=== PATIENT | male | born 1950 | race Two or more races ===

== ENCOUNTER 2019-05-21 21:25 | Inpatient (IN) | payer MEDICARE, OTHER ==
[~2019-05-21] VITALS: Ht 167.6 cm; Wt 71.2 kg
[2019-05-21 11:55] VITALS: BP 163/90
[2019-05-21] MEDS ORDERED: FENTANYL PF 100MCG/2ML AMPUL ONE (21:53)
[2019-05-21] MEDS ORDERED: FENTANYL PF 100MCG/2ML AMPUL IV ONE (22:00)
[2019-05-21] MEDS ORDERED: IV NS 0.9% 1,000 ML IV PRN (22:42)
[2019-05-21 22:51] LABS: BASOPHILS % (AUTO) 0.4 % (0.0-2.0); EOSINOPHILS % (AUTO) 1.3 % (0.0-6.0); HEMATOCRIT 44 % (39-51); HEMOGLOBIN 14.5 g/dL (13.5-17.5); LYMPHOCYTES % (AUTO) 28.2 % (20.0-44.0); MEAN CORPUSCULAR HGB CONC 33 g/dl (31.0-36.0); MEAN CORPUSCULAR VOLUME 90 fL (80-96); MONOCYTES # (AUTO) 0.4 /CMM (0.1-1.30); MONOCYTES % (AUTO) 5.3 % (2.0-12.0); NEUTROPHILS # (AUTO) 4.6 /CMM (1.8-8.9); NEUTROPHILS % (AUTO) 64.8 % (43.0-81.0); PLATELET COUNT (AUTO) 361 /CMM (150-450); RED BLOOD CELL COUNT(AUTO) 4.86 MIL/uL (4.5-6.0)
[2019-05-21] MEDS ORDERED: ACETAMINOPHEN 325 MG TABLET PO PRN (23:00)
[2019-05-21] MEDS ORDERED: ENOXAPARIN SODIUM 40 MG/0.4 ML DISP.SYRIN SQ SCH (23:00)
[2019-05-21] MEDS ORDERED: TEMAZEPAM 15 MG CAPSULE PO PRN (23:00)
[2019-05-21] MEDS ORDERED: MAG HYDROX/AL HYDROX/SIMETH 30 ML UDC PO PRN (23:00)
[2019-05-21] MEDS ORDERED: MAGNESIUM HYDROXIDE 30 ML UDC PO PRN (23:00)
[2019-05-21] MEDS ORDERED: ONDANSETRON HCL/PF 4 MG/2 ML VIAL IVP PRN (23:00)
[2019-05-21 23:02] LABS: CALCIUM, SERUM 9.4 mg/dL (8.5-10.1); CREATININE 1.1 mg/dL (0.6-1.3); POTASSIUM 3.9 mmol/L (3.5-5.1)
[2019-05-21 23:50] VITALS: BP 163/90
[2019-05-21] MEDS: MORPHINE SULFATE INJ 4 MG/ML DISP.SYRIN IV PRN (23:58)
[2019-05-22] MEDS: MORPHINE SULFATE INJ 4 MG/ML DISP.SYRIN IV PRN (04:30)
[2019-05-22] MEDS ORDERED: IV NS 0.9% 1,000 ML IV PRN (06:58)
[2019-05-22] MEDS ORDERED: MORPHINE SULFATE INJ 2 MG/ML DISP.SYRIN IV ONE (07:00)
[2019-05-22 07:20] LABS: BASOPHILS % (AUTO) 0.2 % (0.0-2.0); EOSINOPHILS % (AUTO) 0.3 % (0.0-6.0); HEMATOCRIT 40 % (39-51); HEMOGLOBIN 13.2 g/dL (13.5-17.5); LYMPHOCYTES # (AUTO) 2.5 /CMM (0.8-4.8); LYMPHOCYTES % (AUTO) 23.5 % (20.0-44.0); MEAN CORPUSCULAR HGB CONC 33 g/dl (31.0-36.0); MEAN CORPUSCULAR VOLUME 89 fL (80-96); MONOCYTES # (AUTO) 0.8 /CMM (0.1-1.30); MONOCYTES % (AUTO) 7.3 % (2.0-12.0); NEUTROPHILS # (AUTO) 7.3 /CMM (1.8-8.9); NEUTROPHILS % (AUTO) 68.7 % (43.0-81.0); PLATELET COUNT (AUTO) 298 /CMM (150-450); RED BLOOD CELL COUNT(AUTO) 4.43 MIL/uL (4.5-6.0); WHITE BLOOD COUNT (AUTO) 10.6 K/uL (4.3-11.0)
[2019-05-22 07:34] LABS: CALCIUM, SERUM 8.6 mg/dL (8.5-10.1); MAGNESIUM 1.8 mg/dL (1.8-2.4); PHOSPHORUS 2.3 mg/dL (2.5-4.9); POTASSIUM 3.3 mmol/L (3.5-5.1)
[2019-05-22 08:00] VITALS: BP 148/85
[2019-05-22] MEDS ORDERED: BUPIVACAINE 0.5 % PF 150 MG/30 ML VIAL ONE (08:23)
[2019-05-22] MEDS ORDERED: BACITRACIN 50000 UNITS/VIAL ONE (08:23)
[2019-05-22] MEDS ORDERED: AMLO10TA4 PO (08:24)
[2019-05-22] MEDS ORDERED: ATOR20TA PO (08:24)
[2019-05-22] MEDS ORDERED: HIV (08:24)
[2019-05-22] MEDS ORDERED: FENTANYL PF 100MCG/2ML AMPUL ONE (08:48)
[2019-05-22] MEDS ORDERED: PANTOPRAZOLE 40 MG VIAL IV SCH (09:00)
[2019-05-22] MEDS ORDERED: HYDROMORPHONE 1 MG/1 ML DISP.SYRIN ONE (10:42)
[2019-05-22 12:02] LABS: HEMOGLOBIN 13.2 g/dL (13.5-17.5)
[2019-05-22] MEDS: IV LR 1000 ML 1,000 ML IV PRN (14:28)
[2019-05-22 16:00] VITALS: BP 138/83
[2019-05-22] MEDS: ANCEF 1 GM/50 ML D5W IV SCH ×2 (16:24)
[2019-05-22 20:00] VITALS: BP 136/87
[2019-05-22] MEDS: HYDROCODONE/APAP 5/325MG 1 EACH TABLET PO PRN (20:57)
[2019-05-23] MEDS: ANCEF 1 GM/50 ML D5W IV SCH ×2 (00:03)
[2019-05-23 03:11] VITALS: BP 153/80
[2019-05-23] MEDS: HYDROCODONE/APAP 5/325MG 1 EACH TABLET PO PRN ×3 (03:32→21:12)
[2019-05-23] MEDS: IV LR 1000 ML 1,000 ML IV PRN (07:04)
[2019-05-23 07:39] LABS: BASOPHILS % (AUTO) 0.1 % (0.0-2.0); EOSINOPHILS % (AUTO) 0.1 % (0.0-6.0); HEMATOCRIT 34 % (39-51); HEMOGLOBIN 11.3 g/dL (13.5-17.5); LYMPHOCYTES # (AUTO) 2.5 /CMM (0.8-4.8); LYMPHOCYTES % (AUTO) 23.5 % (20.0-44.0); MEAN CORPUSCULAR HGB CONC 33 g/dl (31.0-36.0); MEAN CORPUSCULAR VOLUME 89 fL (80-96); MONOCYTES % (AUTO) 9.3 % (2.0-12.0); NEUTROPHILS # (AUTO) 7.1 /CMM (1.8-8.9); PLATELET COUNT (AUTO) 284 /CMM (150-450); RED BLOOD CELL COUNT(AUTO) 3.84 MIL/uL (4.5-6.0); WHITE BLOOD COUNT (AUTO) 10.7 K/uL (4.3-11.0)
[2019-05-23 07:56] LABS: CALCIUM, SERUM 8.2 mg/dL (8.5-10.1); CREATININE 0.9 mg/dL (0.6-1.3); MAGNESIUM 1.8 mg/dL (1.8-2.4); PHOSPHORUS 2.7 mg/dL (2.5-4.9); POTASSIUM 3.6 mmol/L (3.5-5.1)
[2019-05-23 08:00] VITALS: BP 134/74
[2019-05-23] MEDS: PANTOPRAZOLE 40 MG TABLET.DR PO SCH (08:57)
[2019-05-23] MEDS: ENOXAPARIN SODIUM 40 MG/0.4 ML DISP.SYRIN SQ SCH (08:59)
[2019-05-23 16:00] VITALS: BP 134/83
[2019-05-23 20:00] VITALS: BP 134/74
[2019-05-23] MEDS ORDERED: ATORVASTATIN 10 MG TABLET PO SCH (22:00)
[2019-05-24] MEDS: HYDROCODONE/APAP 5/325MG 1 EACH TABLET PO PRN (05:05)
[2019-05-24 07:29] LABS: BASOPHILS % (AUTO) 0.3 % (0.0-2.0); EOSINOPHILS % (AUTO) 1.2 % (0.0-6.0); HEMATOCRIT 32 % (39-51); HEMOGLOBIN 10.8 g/dL (13.5-17.5); LYMPHOCYTES % (AUTO) 30.7 % (20.0-44.0); MEAN CORPUSCULAR HGB CONC 33 g/dl (31.0-36.0); MEAN CORPUSCULAR VOLUME 89 fL (80-96); MONOCYTES % (AUTO) 10.1 % (2.0-12.0); NEUTROPHILS # (AUTO) 5.6 /CMM (1.8-8.9); NEUTROPHILS % (AUTO) 57.7 % (43.0-81.0); PLATELET COUNT (AUTO) 254 /CMM (150-450); RED BLOOD CELL COUNT(AUTO) 3.64 MIL/uL (4.5-6.0); WHITE BLOOD COUNT (AUTO) 9.7 K/uL (4.3-11.0)
[2019-05-24 07:45] LABS: CALCIUM, SERUM 8.2 mg/dL (8.5-10.1); CREATININE 0.9 mg/dL (0.6-1.3); MAGNESIUM 1.9 mg/dL (1.8-2.4); PHOSPHORUS 2.1 mg/dL (2.5-4.9); POTASSIUM 3.1 mmol/L (3.5-5.1)
[2019-05-24 08:00] VITALS: BP_SYST 117; BP_SYST 145; BP_DIAS 66; BP_DIAS 99
[2019-05-24] MEDS: PANTOPRAZOLE 40 MG TABLET.DR PO SCH (08:38)
[2019-05-24] MEDS: ENOXAPARIN SODIUM 40 MG/0.4 ML DISP.SYRIN SQ SCH (08:39)
[2019-05-24] MEDS ORDERED: AMLODIPINE BESYLATE 10 MG TABLET PO SCH (09:00)
[2019-05-24] MEDS: POTASSIUM CHLORIDE 20 MEQ TAB.PRT.SR PO SCH ×2 (10:42→11:20)
[2019-05-24] MEDS ORDERED: K PHOS NEUTRAL 250 MG TABLET PO ONE (11:00)
[2019-05-24] MEDS: HYDROCODONE/APAP 10/325MG 1 EA TABLET PO PRN ×2 (11:20→17:26)
[2019-05-24 16:00] VITALS: BP 135/75
== END 2019-05-24 18:48 | DRG 482 ==
LOC: ER 21:29 → MED 22:48 → MEDSG2 05-23 02:55
PROVIDERS: ADMIT Nurse Practitioner Acute Care; ATTEND Nurse Practitioner Acute Care
PROC: 0QS706Z Reposition Left Upper Femur with Intramedullary Internal Fixation Device, Open Approach (ICD-10-PCS; principal; 2019-05-22)
DX: S72.142A Displaced intertrochanteric fracture of left femur, initial encounter for closed fracture (principal); S72.122A Displaced fracture of lesser trochanter of left femur, initial encounter for closed fracture; W18.30XA Fall on same level, unspecified, initial encounter; Y92.009 Unspecified place in unspecified non-institutional (private) residence as the place of occurrence of the external cause; I10 Essential (primary) hypertension; E86.0 Dehydration; E83.39 Other disorders of phosphorus metabolism; E87.6 Hypokalemia; R79.89 Other specified abnormal findings of blood chemistry
CPT/HCPCS: 36415; 71045-TC; 73502; 73552; 80048-TC; 80061-TC; 83735-TC; 84100-TC; 85025-TC; 85027-TC; 85730-TC; 87081-TC; 93307-TC; 97112-TC; 97530-TC; G0378; J0690; J1170; J1650; J2270; J2405; J3010; J3490; J7030; J7060; J7120

== ENCOUNTER 2023-04-04 18:20 | Inpatient (IN) | payer BC, OTHER ==
[~2023-04-04] VITALS: Ht 170.2 cm; Wt 62.6 kg
[~2023-04-04 18:20] MED LIST: AMLO10TA4 GT; ATOR20TA PO; HIV
[2023-04-04] MEDS ORDERED: IV NS 0.9% 1,000 ML BAG IV ONE (19:00)
[2023-04-04] MEDS ORDERED: DOCU100T2 GT (19:09)
[2023-04-04] MEDS ORDERED: CLON0.1T GT (19:09)
[2023-04-04] MEDS ORDERED: ATOR40TA GT (19:09)
[2023-04-04] MEDS ORDERED: IPRA3AMP22 IH (19:09)
[2023-04-04] MEDS ORDERED: CRAN425C6 GT (19:09)
[2023-04-04] MEDS ORDERED: PANT40TA2 PO (19:09)
[2023-04-04] MEDS ORDERED: ALLA266C2 TP (19:09)
[2023-04-04] MEDS ORDERED: TAMS-12 GT (19:09)
[2023-04-04] MEDS ORDERED: NA P133E RC (19:09)
[2023-04-04] MEDS ORDERED: ASPI-1169 GT (19:09)
[2023-04-04] MEDS ORDERED: AMIN30LI2 GT (19:09)
[2023-04-04] MEDS ORDERED: DOLU50TA GT (19:09)
[2023-04-04] MEDS ORDERED: ENOX40DI SQ (19:09)
[2023-04-04] MEDS ORDERED: FINA5TAB3 GT (19:09)
[2023-04-04] MEDS ORDERED: DARU1TAB GT (19:09)
[2023-04-04] MEDS ORDERED: BISA10SU11 RC (19:09)
[2023-04-04] MEDS ORDERED: LOSA50TA39 GT (19:09)
[2023-04-04] MEDS ORDERED: ACET-868 GT (19:09)
[2023-04-04] MEDS ORDERED: MAGN400O6 GT (19:09)
[2023-04-04 19:26] LABS: ABG BASE EXCESS 2.4 mmol/L; ABG OXYGEN SATURATION 98.5 % (92.0-98.5); ABG PCO2 40.8 mmHg (35.0-45.0); ABG PH 7.436 (7.350-7.450); ABG PO2 146.9 mmHg (75.0-100.0); ABG TOTAL HEMOGLOBIN 10.8 G/dL (13.5-18.0); COHb 0.3 % (0.5-1.5); MetHb 0.4 % (0.0-1.5); O2Hb 97.8 % (94.0-97.0); SITE, ABG Right Radial; VENT MODE, BG NRB 15L 100%
[2023-04-04] MEDS ORDERED: LEVOFLOXACIN 750 MG /D5W 150ML PIGGYBACK IV ONE (19:30)
[2023-04-04 19:33] LABS: BASOPHILS % (AUTO) 0.2 % (0.0-2.0); EOSINOPHILS # (AUTO) 0.1 K/uL (0.0-0.7); EOSINOPHILS % (AUTO) 0.8 % (0.0-6.0); HEMATOCRIT 33 % (39-51); HEMOGLOBIN 10.2 g/dL (13.5-17.5); LYMPHOCYTES # (AUTO) 3.4 K/uL (0.8-4.8); LYMPHOCYTES % (AUTO) 25.3 % (20.0-44.0); MEAN CORPUSCULAR HEMOGLOBIN 28 PG (26.0-33.0); MEAN CORPUSCULAR HGB CONC 31 g/dl (31.0-36.0); MEAN CORPUSCULAR VOLUME 90 fL (80-96); MONOCYTES # (AUTO) 0.8 K/uL (0.1-1.30); MONOCYTES % (AUTO) 6.1 % (2.0-12.0); NEUTROPHILS # (AUTO) 9.1 K/uL (1.8-8.9); NEUTROPHILS % (AUTO) 67.6 % (43.0-81.0); PLATELET COUNT (AUTO) 305 K/uL (150-450); RED CELL DISTRIBUTION WIDTH 18.4 % (11.5-15.0); WHITE BLOOD COUNT (AUTO) 13.5 K/uL (4.3-11.0)
[2023-04-04 19:41] LABS: CALCIUM, SERUM 9.9 mg/dL (8.5-10.1); CARBON DIOXIDE 25 mmol/L (21-32); CHLORIDE 112 mmol/L (98-107); CREATININE 1.8 mg/dL (0.6-1.3); GLUCOSE 212 mg/dL (74-106); POTASSIUM 3.6 mmol/L (3.5-5.1); SODIUM SERUM 145 mmol/L (136-145); UREA NITROGEN, BLOOD 38 mg/dL (7-18)
[2023-04-04 19:48] LABS: LACTIC ACID 2.3 mmol/L (0.4-2.0)
[2023-04-04 19:54] LABS: ALANINE AMINOTRANSFERASE 16 U/L (12-78); ALBUMIN 1.9 g/dL (3.4-5.0); ALCOHOL, BLOOD < 3 mg/dL (0-10); ALKALINE PHOSPHATASE 92 U/L (46-116); ASPARTATE AMINOTRANSFERASE 23 U/L (15-37); BILIRUBIN,DIRECT 0.2 mg/dL (0.0-0.2); BILIRUBIN,TOTAL 0.6 mg/dL (0.2-1.0); TOTAL PROTEIN, SERUM 7.6 g/dL (6.4-8.2)
[2023-04-04 19:56] LABS: SERUM AMMONIA 23 umol/L (11-32)
[2023-04-04 19:57] LABS: THYROID STIMULATING HORMONE 1.313 uIU/mL (0.358-3.74)
[2023-04-04 20:17] LABS: INR 1.05 (0.91-1.10); PARTIAL THROMBOPLASTIN TIME 23.4 SEC (24.3-34.3); PROTHROMBIN TIME 11.1 SECS (9.2-11.1)
[2023-04-04 21:54] LABS: APPEARANCE,URINE SLIGHTLY CLOUDY (CLEAR); BILIRUBIN,URINE NEGATIVE (NEGATIVE); BLOOD, URINE 3+ Ery/uL (NEGATIVE); COLOR,URINE YELLOW (YELLOW); KETONES,URINE NEGATIVE (NEGATIVE); LEUKOCYTE ESTERASE ,URINE NEGATIVE (NEGATIVE); NITRITE, URINE NEGATIVE (NEGATIVE); PH,URINE 5.5 (5.0-8.0); PROTEIN,URINE 2+ mg/dl (NEGATIVE); UGLUCOSE NEGATIVE (NEGATIVE)
[2023-04-04 22:25] LABS: RBC,URINE 51-80 /HPF (0-2); WBC,URINE 0-2 /HPF (0-3)
[2023-04-04 22:26] LABS: ADD URINE CULTURE NO; BACTERIA,URINE RARE /HPF (None Seen); CALCIUM OXALATE CRYSTALS,UR Few /HPF (None Seen); FINE GRANULAR CASTS,URINE Few /LPF (None Seen); HYALINE CASTS, URINE Few /LPF (None Seen); URINE AMORPHOUS URATE Many /HPF (None Seen)
[2023-04-05] MEDS ORDERED: ONDANSETRON HCL/PF 4 MG/2 ML VIAL IVP PRN
[2023-04-05] MEDS ORDERED: IV NS 0.9% 1,000 ML IV PRN
[2023-04-05] MEDS ORDERED: ACETAMINOPHEN 650 MG/SUPP.RECT RC PRN
[2023-04-05] MEDS: ENOXAPARIN SODIUM 40 MG/0.4 ML DISP.SYRIN SQ SCH ×2 (01:19→21:36)
[2023-04-05] MEDS ORDERED: IPRATROPIUM NEB FS 0.5 MG/2.5 ML AMPUL.NEB NEB PRN (01:30)
[2023-04-05] MEDS ORDERED: ALBUTEROL HALF STRENGTH 1.25 MG/3 ML VIAL.NEB NEB PRN (01:30)
[2023-04-05 01:49] VITALS: BP 119/81; TEMP 98.2; O2SAT 95
[2023-04-05 04:00] VITALS: BP 146/71; TEMP 98.7; O2SAT 94
[2023-04-05 07:26] LABS: BASOPHILS % (AUTO) 0.2 % (0.0-2.0); EOSINOPHILS % (AUTO) 0.2 % (0.0-6.0); HEMATOCRIT 28 % (39-51); HEMOGLOBIN 8.6 g/dL (13.5-17.5); LYMPHOCYTES % (AUTO) 14.9 % (20.0-44.0); MEAN CORPUSCULAR HEMOGLOBIN 28 PG (26.0-33.0); MEAN CORPUSCULAR HGB CONC 31 g/dl (31.0-36.0); MEAN CORPUSCULAR VOLUME 89 fL (80-96); MONOCYTES # (AUTO) 0.7 K/uL (0.1-1.30); MONOCYTES % (AUTO) 5.1 % (2.0-12.0); NEUTROPHILS # (AUTO) 10.6 K/uL (1.8-8.9); NEUTROPHILS % (AUTO) 79.6 % (43.0-81.0); PLATELET COUNT (AUTO) 223 K/uL (150-450); RED BLOOD CELL COUNT(AUTO) 3.11 MIL/uL (4.5-6.0); RED CELL DISTRIBUTION WIDTH 18.2 % (11.5-15.0); WHITE BLOOD COUNT (AUTO) 13.3 K/uL (4.3-11.0)
[2023-04-05 07:30] VITALS: BP 135/124; TEMP 98.1; O2SAT 93
[2023-04-05 07:44] LABS: CALCIUM, SERUM 9.3 mg/dL (8.5-10.1); CREATININE 1.2 mg/dL (0.6-1.3); MAGNESIUM 2.4 mg/dL (1.8-2.4); PHOSPHORUS 2.6 mg/dL (2.5-4.9); POTASSIUM 3.5 mmol/L (3.5-5.1)
[2023-04-05] MEDS: ASPIRIN 81 MG TAB.CHEW PO SCH (08:06)
[2023-04-05] MEDS: DOCUSATE SODIUM 100 MG CAPSULE PO SCH (08:07)
[2023-04-05] MEDS: FINASTERIDE (5 MG) 5 MG TABLET PO SCH (08:07)
[2023-04-05] MEDS: PROSOURCE / PROSTAT (PYXIS) 30 ML UDC PO SCH (08:07)
[2023-04-05] MEDS: AMLODIPINE BESYLATE 10 MG TABLET PO SCH (08:07)
[2023-04-05] MEDS: LOSARTAN POTASSIUM 50 MG TABLET PO SCH (08:07)
[2023-04-05] MEDS: IV D5/ 0.9% NACL 1,000 ML IV PRN (11:21)
[2023-04-05] MEDS ORDERED: CLINDAMYCIN IV RTU IN D5W 900 MG/50 ML PIGGYBACK IV SCH (14:30)
[2023-04-05] MEDS: CLINDAMYCIN 900 MG in IV D5W 50 ML IV SCH ×4 (14:30→21:09)
[2023-04-05] MEDS: LEVOFLOXACIN 750 MG /D5W 150ML 150 ML IV SCH (16:05)
[2023-04-05 16:08] VITALS: BP 130/73; TEMP 98.6; O2SAT 95
[2023-04-05] MEDS: ACETAMINOPHEN 325 MG TABLET PO PRN (17:41)
[2023-04-05] MEDS: COBICISTAT PO SCH ×2 (17:58→19:30)
[2023-04-05] MEDS: DARUNAVIR PO SCH ×2 (17:58→19:30)
[2023-04-05 19:30] VITALS: BP 130/70; TEMP 98; O2SAT 98
[2023-04-05 20:00] VITALS: BP 130/70; TEMP 98; O2SAT 98
[2023-04-05] MEDS: ATORVASTATIN 40 MG TABLET PO SCH (21:08)
[2023-04-05] MEDS: CIPROFLOXACIN HCL 0.3% 5 ML BOTTLE LEFTEYE SCH (21:08)
[2023-04-05] MEDS: TAMSULOSIN 0.4 MG CAP.SR.24H PO SCH (21:08)
[2023-04-06] VITALS: BP 104/77; TEMP 98; O2SAT 96
[2023-04-06 04:00] VITALS: BP 141/74; TEMP 97.6; O2SAT 96
[2023-04-06] MEDS: CLINDAMYCIN 900 MG in IV D5W 50 ML IV SCH ×6 (04:12→21:26)
[2023-04-06] MEDS: IV D5/ 0.9% NACL 1,000 ML IV PRN (05:48)
[2023-04-06 06:47] LABS: BASOPHILS % (AUTO) 0.4 % (0.0-2.0); EOSINOPHILS # (AUTO) 0.2 K/uL (0.0-0.7); EOSINOPHILS % (AUTO) 2.6 % (0.0-6.0); HEMATOCRIT 26 % (39-51); LYMPHOCYTES # (AUTO) 1.6 K/uL (0.8-4.8); LYMPHOCYTES % (AUTO) 22.9 % (20.0-44.0); MEAN CORPUSCULAR HEMOGLOBIN 28 PG (26.0-33.0); MEAN CORPUSCULAR HGB CONC 31 g/dl (31.0-36.0); MEAN CORPUSCULAR VOLUME 90 fL (80-96); MONOCYTES # (AUTO) 0.5 K/uL (0.1-1.30); MONOCYTES % (AUTO) 6.6 % (2.0-12.0); NEUTROPHILS # (AUTO) 4.7 K/uL (1.8-8.9); NEUTROPHILS % (AUTO) 67.5 % (43.0-81.0); PLATELET COUNT (AUTO) 202 K/uL (150-450); RED BLOOD CELL COUNT(AUTO) 2.85 MIL/uL (4.5-6.0); RED CELL DISTRIBUTION WIDTH 18.3 % (11.5-15.0)
[2023-04-06 07:16] LABS: CALCIUM, SERUM 9.5 mg/dL (8.5-10.1); CREATININE 1.1 mg/dL (0.6-1.3); POTASSIUM 3.4 mmol/L (3.5-5.1)
[2023-04-06 08:30] VITALS: BP 130/70; O2SAT 97
[2023-04-06 09:08] LABS: FOLIC ACID 6.1 ng/mL (>3.0)
[2023-04-06] MEDS: FINASTERIDE (5 MG) 5 MG TABLET PO SCH (09:17)
[2023-04-06] MEDS: DOCUSATE SODIUM 100 MG CAPSULE PO SCH (09:17)
[2023-04-06] MEDS: LOSARTAN POTASSIUM 50 MG TABLET PO SCH (09:18)
[2023-04-06] MEDS: AMLODIPINE BESYLATE 10 MG TABLET PO SCH (09:18)
[2023-04-06] MEDS: ASPIRIN 81 MG TAB.CHEW PO SCH (09:18)
[2023-04-06] MEDS: PROSOURCE / PROSTAT (PYXIS) 30 ML UDC PO SCH (09:19)
[2023-04-06] MEDS: CIPROFLOXACIN HCL 0.3% 5 ML BOTTLE LEFTEYE SCH ×2 (09:20→17:23)
[2023-04-06] MEDS: POTASSIUM CL. PREMIX PERIPHER. 50 ML IV SCH ×2 (10:40→11:44)
[2023-04-06 13:00] VITALS: BP 151/75; TEMP 97.8; O2SAT 98
[2023-04-06] MEDS: NYSTATIN (PYXIS) 500,000 UNIT/5 ML ORAL.SUSP PO SCH ×2 (13:24→17:24)
[2023-04-06 16:00] VITALS: BP 133/67; TEMP 97.7; O2SAT 94
[2023-04-06] MEDS: DOLUTEGRAVIR SODIUM 50 MG PO SCH (17:23)
[2023-04-06] MEDS: DARUNAVIR PO SCH (17:23)
[2023-04-06] MEDS: COBICISTAT PO SCH (17:23)
[2023-04-06 20:00] VITALS: BP 130/67; TEMP 97.3; O2SAT 95
[2023-04-06] MEDS: TAMSULOSIN 0.4 MG CAP.SR.24H PO SCH (21:40)
[2023-04-06] MEDS: ATORVASTATIN 40 MG TABLET PO SCH (21:40)
[2023-04-06] MEDS: ENOXAPARIN SODIUM 40 MG/0.4 ML DISP.SYRIN SQ SCH (22:27)
[2023-04-07] MEDS: IV D5/ 0.9% NACL 1,000 ML IV PRN (03:16)
[2023-04-07] MEDS: CLINDAMYCIN 900 MG in IV D5W 50 ML IV SCH ×3 (05:44→20:31)
[2023-04-07 06:47] LABS: BASOPHILS % (AUTO) 0.3 % (0.0-2.0); EOSINOPHILS # (AUTO) 0.3 K/uL (0.0-0.7); EOSINOPHILS % (AUTO) 4.1 % (0.0-6.0); HEMATOCRIT 28 % (39-51); HEMOGLOBIN 8.7 g/dL (13.5-17.5); LYMPHOCYTES # (AUTO) 2.1 K/uL (0.8-4.8); LYMPHOCYTES % (AUTO) 26.4 % (20.0-44.0); MEAN CORPUSCULAR HEMOGLOBIN 28 PG (26.0-33.0); MEAN CORPUSCULAR HGB CONC 31 g/dl (31.0-36.0); MEAN CORPUSCULAR VOLUME 90 fL (80-96); MONOCYTES # (AUTO) 0.5 K/uL (0.1-1.30); MONOCYTES % (AUTO) 5.9 % (2.0-12.0); NEUTROPHILS % (AUTO) 63.3 % (43.0-81.0); PLATELET COUNT (AUTO) 232 K/uL (150-450); RED BLOOD CELL COUNT(AUTO) 3.15 MIL/uL (4.5-6.0); RED CELL DISTRIBUTION WIDTH 17.9 % (11.5-15.0); WHITE BLOOD COUNT (AUTO) 7.9 K/uL (4.3-11.0)
[2023-04-07 07:06] LABS: *BASOS 0 % (Not Estab.); *EOS 2 % (Not Estab.); *EOS, ABSOLUTE 0.2 x10E3/uL (0.0-0.4); *HCT 27.9 % (37.5-51.0); *HGB 8.4 g/dL (13.0-17.7); *IMMATURE GRANULOCYTES 0 % (Not Estab.); *LYMPHOCYTES 23 % (Not Estab.); *MCH 27.9 pg (26.6-33.0); *MCHC 30.1 g/dL (31.5-35.7); *MCV 93 fL (79-97); *MONOCYTES 6 % (Not Estab.); *MONOS, ABSOLUTE 0.5 x10E3/uL (0.1-0.9); *NEUTROPHILS 69 % (Not Estab.); *NEUTROPHILS, ABSOLUTE 6.1 x10E3/uL (1.4-7.0); *PLT 241 x10E3/uL (150-450); *RBC 3.01 x10E6/uL (4.14-5.80); *RDW 15.1 % (11.6-15.4); *WBC 8.8 x10E3/uL (3.4-10.8)
[2023-04-07 07:31] LABS: CALCIUM, SERUM 9.4 mg/dL (8.5-10.1); CARBON DIOXIDE 26 mmol/L (21-32); CHLORIDE 117 mmol/L (98-107); GLUCOSE 92 mg/dL (74-106); POTASSIUM 2.9 mmol/L (3.5-5.1); SODIUM SERUM 150 mmol/L (136-145); UREA NITROGEN, BLOOD 29 mg/dL (7-18)
[2023-04-07 08:00] VITALS: BP 135/63; TEMP 98.3; O2SAT 91
[2023-04-07] MEDS ORDERED: TPN/PPN PER PHARMACY XX PRN (10:00)
[2023-04-07] MEDS: ASPIRIN 81 MG TAB.CHEW PO SCH (10:13)
[2023-04-07] MEDS: NYSTATIN (PYXIS) 500,000 UNIT/5 ML ORAL.SUSP PO SCH ×3 (10:14→17:04)
[2023-04-07] MEDS: DOCUSATE SODIUM 100 MG CAPSULE PO SCH (10:14)
[2023-04-07] MEDS: FINASTERIDE (5 MG) 5 MG TABLET PO SCH (10:14)
[2023-04-07] MEDS: AMLODIPINE BESYLATE 10 MG TABLET PO SCH (10:21)
[2023-04-07] MEDS: LOSARTAN POTASSIUM 50 MG TABLET PO SCH (10:21)
[2023-04-07] MEDS: PROSOURCE / PROSTAT (PYXIS) 30 ML UDC PO SCH (10:23)
[2023-04-07] MEDS: CIPROFLOXACIN HCL 0.3% 5 ML BOTTLE LEFTEYE SCH ×2 (10:23→17:04)
[2023-04-07] MEDS: DOLUTEGRAVIR SODIUM 50 MG PO SCH (10:23)
[2023-04-07] MEDS: POTASSIUM CHLORIDE 20 MEQ TAB.PRT.SR PO SCH ×3 (12:04→13:15)
[2023-04-07] MEDS ORDERED: IV D5W 1,000 ML IV ONE (13:00)
[2023-04-07] MEDS: LEVOFLOXACIN 750 MG /D5W 150ML 150 ML IV SCH (15:22)
[2023-04-07 16:00] VITALS: BP 143/72; TEMP 98.8; O2SAT 93
[2023-04-07] MEDS: DARUNAVIR PO SCH (17:04)
[2023-04-07] MEDS: COBICISTAT PO SCH (17:04)
[2023-04-07 18:06] LABS: CALCIUM, SERUM 9.4 mg/dL (8.5-10.1); POTASSIUM 3.8 mmol/L (3.5-5.1)
[2023-04-07 20:00] VITALS: BP 154/76; TEMP 99.9; O2SAT 93
[2023-04-07] MEDS: ATORVASTATIN 40 MG TABLET PO SCH (21:51)
[2023-04-07] MEDS: TAMSULOSIN 0.4 MG CAP.SR.24H PO SCH (21:51)
[2023-04-07] MEDS: ENOXAPARIN SODIUM 40 MG/0.4 ML DISP.SYRIN SQ SCH (21:55)
[2023-04-08] MEDS: CLINDAMYCIN 900 MG in IV D5W 50 ML IV SCH ×2 (05:40→12:53)
[2023-04-08 07:23] LABS: BASOPHILS % (AUTO) 0.3 % (0.0-2.0); EOSINOPHILS # (AUTO) 0.2 K/uL (0.0-0.7); EOSINOPHILS % (AUTO) 2.3 % (0.0-6.0); HEMATOCRIT 32 % (39-51); LYMPHOCYTES # (AUTO) 1.5 K/uL (0.8-4.8); MEAN CORPUSCULAR HEMOGLOBIN 28 PG (26.0-33.0); MEAN CORPUSCULAR HGB CONC 32 g/dl (31.0-36.0); MEAN CORPUSCULAR VOLUME 88 fL (80-96); MONOCYTES # (AUTO) 0.4 K/uL (0.1-1.30); MONOCYTES % (AUTO) 5.3 % (2.0-12.0); NEUTROPHILS # (AUTO) 6.1 K/uL (1.8-8.9); NEUTROPHILS % (AUTO) 74.1 % (43.0-81.0); PLATELET COUNT (AUTO) 260 K/uL (150-450); RED BLOOD CELL COUNT(AUTO) 3.57 MIL/uL (4.5-6.0); RED CELL DISTRIBUTION WIDTH 18.2 % (11.5-15.0); WHITE BLOOD COUNT (AUTO) 8.2 K/uL (4.3-11.0)
[2023-04-08 07:46] LABS: CALCIUM, SERUM 9.4 mg/dL (8.5-10.1); POTASSIUM 3.4 mmol/L (3.5-5.1)
[2023-04-08 09:06] LABS: *% CD 4 POS. LYMPH 11.6 % (30.8-58.5); *% CD 8 POS. LYMPH 75.1 % (12.0-35.5); *ABSOLUTE CD 4 HELPER 232 /uL (359-1519); *ABSOLUTE CD 8 SUPPRESSOR 1502 /uL (109-897); *CD4/CD8 RATIO 0.15 (0.92-3.72)
[2023-04-08 09:46] VITALS: BP 151/76; TEMP 99.3; O2SAT 91
[2023-04-08] MEDS: DOCUSATE SODIUM 100 MG CAPSULE PO SCH (09:52)
[2023-04-08] MEDS: AMLODIPINE BESYLATE 10 MG TABLET PO SCH (09:52)
[2023-04-08] MEDS: NYSTATIN (PYXIS) 500,000 UNIT/5 ML ORAL.SUSP PO SCH ×3 (09:52→16:55)
[2023-04-08] MEDS: FINASTERIDE (5 MG) 5 MG TABLET PO SCH (09:52)
[2023-04-08] MEDS: ASPIRIN 81 MG TAB.CHEW PO SCH (09:52)
[2023-04-08] MEDS: LOSARTAN POTASSIUM 50 MG TABLET PO SCH (09:53)
[2023-04-08] MEDS: DOLUTEGRAVIR SODIUM 50 MG PO SCH (09:53)
[2023-04-08] MEDS: CIPROFLOXACIN HCL 0.3% 5 ML BOTTLE LEFTEYE SCH ×2 (09:53→16:43)
[2023-04-08] MEDS: PROSOURCE / PROSTAT (PYXIS) 30 ML UDC PO SCH ×3 (09:54→16:55)
[2023-04-08] MEDS ORDERED: POTASSIUM CHLORIDE 20 MEQ POWDER PACKET PO ONE (10:00)
[2023-04-08] MEDS: LEVOFLOXACIN (250MG) 250 MG TABLET PO SCH (15:59)
[2023-04-08 17:01] VITALS: BP 151/85; TEMP 98.6; O2SAT 93
[2023-04-08 17:03] VITALS: BP 151/85; TEMP 98.6; O2SAT 93
[2023-04-08] MEDS: DARUNAVIR PO SCH (17:14)
[2023-04-08] MEDS: COBICISTAT PO SCH (17:14)
[2023-04-08 20:00] VITALS: BP 128/72; TEMP 99.6; O2SAT 93
[2023-04-08] MEDS: CLINDAMYCIN HCL 150 MG CAPSULE PO SCH (20:35)
[2023-04-08] MEDS: ACETAMINOPHEN 325 MG TABLET PO PRN (20:35)
[2023-04-08] MEDS ORDERED: ENOXAPARIN SODIUM 40 MG/0.4 ML DISP.SYRIN SQ ONE (21:29)
[2023-04-08] MEDS: ATORVASTATIN 40 MG TABLET PO SCH (21:46)
[2023-04-08] MEDS: TAMSULOSIN 0.4 MG CAP.SR.24H PO SCH (21:46)
[2023-04-08] MEDS: ENOXAPARIN SODIUM 40 MG/0.4 ML DISP.SYRIN SQ SCH (21:47)
[2023-04-08 22:31] VITALS: O2SAT 91
[2023-04-08 22:46] VITALS: O2SAT 93
[2023-04-09] VITALS (74 sets, daily range): BP systolic 80–151; BP diastolic 51–75; TEMP 97.2–98.3; O2SAT 50–100
[2023-04-09 02:55] LABS: ABG BASE EXCESS 1.4 mmol/L; ABG OXYGEN SATURATION 95.1 % (92.0-98.5); ABG PCO2 23.8 mmHg (35.0-45.0); ABG PH 7.587 (7.350-7.450); ABG PO2 73.5 mmHg (75.0-100.0); ABG TOTAL HEMOGLOBIN 10.6 G/dL (13.5-18.0); AaDO2 615.7 mmHg; COHb 0.3 % (0.5-1.5); MetHb 0.3 % (0.0-1.5); O2Hb 94.5 % (94.0-97.0); SITE, ABG Right Radial
[2023-04-09] MEDS: NOREPINEPHRINE 8 MG in IV NS 0.9% 242 ML IV PRN ×2 (04:26→12:25)
[2023-04-09 05:00] LABS: BASOPHILS % (AUTO) 0.1 % (0.0-2.0); HEMATOCRIT 29 % (39-51); HEMOGLOBIN 9.3 g/dL (13.5-17.5); LYMPHOCYTES # (AUTO) 0.4 K/uL (0.8-4.8); LYMPHOCYTES % (AUTO) 3.7 % (20.0-44.0); MEAN CORPUSCULAR HEMOGLOBIN 27 PG (26.0-33.0); MEAN CORPUSCULAR HGB CONC 32 g/dl (31.0-36.0); MEAN CORPUSCULAR VOLUME 87 fL (80-96); MONOCYTES # (AUTO) 0.6 K/uL (0.1-1.30); NEUTROPHILS # (AUTO) 10.2 K/uL (1.8-8.9); NEUTROPHILS % (AUTO) 91.2 % (43.0-81.0); PLATELET COUNT (AUTO) 245 K/uL (150-450); RED BLOOD CELL COUNT(AUTO) 3.38 MIL/uL (4.5-6.0); RED CELL DISTRIBUTION WIDTH 17.8 % (11.5-15.0); WHITE BLOOD COUNT (AUTO) 11.2 K/uL (4.3-11.0)
[2023-04-09 05:33] LABS: CALCIUM, SERUM 8.8 mg/dL (8.5-10.1); CARBON DIOXIDE 22 mmol/L (21-32); CHLORIDE 106 mmol/L (98-107); CREATININE 1.8 mg/dL (0.6-1.3); GLUCOSE 178 mg/dL (74-106); POTASSIUM 4.2 mmol/L (3.5-5.1); SODIUM SERUM 136 mmol/L (136-145); UREA NITROGEN, BLOOD 34 mg/dL (7-18)
[2023-04-09 05:42] LABS: ABG BASE EXCESS 0.2 mmol/L; ABG PCO2 36.6 mmHg (35.0-45.0); ABG PH 7.437 (7.350-7.450); ABG PO2 137.1 mmHg (75.0-100.0); AaDO2 539.3 mmHg; COHb 0.2 % (0.5-1.5); MetHb 0.9 % (0.0-1.5); O2Hb 96.9 % (94.0-97.0); PEEP,BG 5 cm H2O; SITE, ABG Right Radial; VT, ABG 500 mL
[2023-04-09] MEDS ORDERED: PROPOFOL 100 ML IV PRN (08:00)
[2023-04-09] MEDS: PROSOURCE / PROSTAT (PYXIS) 30 ML UDC PO SCH ×3 (08:41→16:48)
[2023-04-09] MEDS: CIPROFLOXACIN HCL 0.3% 5 ML BOTTLE LEFTEYE SCH ×2 (09:00→16:48)
[2023-04-09] MEDS: CLINDAMYCIN HCL 150 MG CAPSULE PO SCH ×4 (09:00→21:11)
[2023-04-09] MEDS: DOLUTEGRAVIR SODIUM 50 MG PO SCH (09:00)
[2023-04-09] MEDS: FINASTERIDE (5 MG) 5 MG TABLET PO SCH (09:17)
[2023-04-09] MEDS: LOSARTAN POTASSIUM 50 MG TABLET PO SCH (09:18)
[2023-04-09] MEDS: DOCUSATE SODIUM 100 MG CAPSULE PO SCH (09:18)
[2023-04-09] MEDS: AMLODIPINE BESYLATE 10 MG TABLET PO SCH (09:18)
[2023-04-09] MEDS: NYSTATIN (PYXIS) 500,000 UNIT/5 ML ORAL.SUSP PO SCH ×3 (09:18→16:47)
[2023-04-09] MEDS: ASPIRIN 81 MG TAB.CHEW PO SCH (09:18)
[2023-04-09] MEDS ORDERED: IV NS 0.9% 100 ML IV ONE (11:00)
[2023-04-09] MEDS ORDERED: IV NS 0.9% 1,000 ML BAG IV ONE (13:00)
[2023-04-09] MEDS ORDERED: SUCCINYLCHOLINE CHLORIDE 20 MG/ML VIAL IV ONE (15:51)
[2023-04-09] MEDS ORDERED: ETOMIDATE 2 MG/ML VIAL IV ONE (15:51)
[2023-04-09] MEDS ORDERED: ROCURONIUM BROMIDE 50 MG/5 ML IV ONE (15:51)
[2023-04-09] MEDS: LEVOFLOXACIN (250MG) 250 MG TABLET PO SCH (16:46)
[2023-04-09] MEDS: DARUNAVIR PO SCH (18:00)
[2023-04-09] MEDS: COBICISTAT PO SCH (18:00)
[2023-04-09] MEDS: IV D5/ 0.9% NACL 1,000 ML IV PRN (18:48)
[2023-04-09] MEDS: ATORVASTATIN 40 MG TABLET PO SCH (21:11)
[2023-04-09] MEDS: TAMSULOSIN 0.4 MG CAP.SR.24H PO SCH (21:11)
[2023-04-09] MEDS: ENOXAPARIN SODIUM 40 MG/0.4 ML DISP.SYRIN SQ SCH (21:16)
[2023-04-10] VITALS (31 sets, daily range): BP systolic 92–132; BP diastolic 54–90; TEMP 97.5–99.2; O2SAT 88–100
[2023-04-10 00:02] LABS: APPEARANCE,URINE CLEAR (CLEAR); BILIRUBIN,URINE NEGATIVE (NEGATIVE); BLOOD, URINE 2+ Ery/uL (NEGATIVE); COLOR,URINE YELLOW (YELLOW); KETONES,URINE NEGATIVE (NEGATIVE); LEUKOCYTE ESTERASE ,URINE NEGATIVE (NEGATIVE); NITRITE, URINE NEGATIVE (NEGATIVE); PROTEIN,URINE 2+ mg/dl (NEGATIVE); UGLUCOSE NEGATIVE (NEGATIVE)
[2023-04-10] MEDS: IV D5/ 0.9% NACL 1,000 ML IV PRN ×3 (00:05→21:55)
[2023-04-10 00:36] LABS: CREATININE, URINE 94.7 MG/DL (30.0-125.0); URINE TOTAL PROTEIN 120.9 mg/dL (0-11.9)
[2023-04-10 01:02] LABS: ADD URINE CULTURE NO; BACTERIA,URINE 1+ /HPF (None Seen); CALCIUM OXALATE CRYSTALS,UR Moderate /HPF (None Seen); MUCUS,URINE Moderate /LPF (None Seen); SQUAMOUS EPITHELIAL CELL,UR None Seen /HPF (None Seen); WBC,URINE 0-2 /HPF (0-3)
[2023-04-10 02:21] LABS: EOSINOPHIL,URINE None Seen
[2023-04-10 04:41] LABS: BASOPHILS # (AUTO) 0.1 K/uL (0.0-0.2); BASOPHILS % (AUTO) 0.7 % (0.0-2.0); EOSINOPHILS # (AUTO) 0.3 K/uL (0.0-0.7); EOSINOPHILS % (AUTO) 2.9 % (0.0-6.0); HEMATOCRIT 26 % (39-51); HEMOGLOBIN 8.1 g/dL (13.5-17.5); LYMPHOCYTES # (AUTO) 1.2 K/uL (0.8-4.8); LYMPHOCYTES % (AUTO) 13.1 % (20.0-44.0); MEAN CORPUSCULAR HEMOGLOBIN 27 PG (26.0-33.0); MEAN CORPUSCULAR HGB CONC 32 g/dl (31.0-36.0); MEAN CORPUSCULAR VOLUME 87 fL (80-96); MONOCYTES # (AUTO) 0.5 K/uL (0.1-1.30); NEUTROPHILS # (AUTO) 7.5 K/uL (1.8-8.9); NEUTROPHILS % (AUTO) 78.3 % (43.0-81.0); PLATELET COUNT (AUTO) 214 K/uL (150-450); RED BLOOD CELL COUNT(AUTO) 2.95 MIL/uL (4.5-6.0); RED CELL DISTRIBUTION WIDTH 18.2 % (11.5-15.0); WHITE BLOOD COUNT (AUTO) 9.5 K/uL (4.3-11.0)
[2023-04-10 05:00] LABS: CALCIUM, SERUM 8.6 mg/dL (8.5-10.1); CREATININE 1.3 mg/dL (0.6-1.3); POTASSIUM 3.4 mmol/L (3.5-5.1)
[2023-04-10] MEDS: PROSOURCE / PROSTAT (PYXIS) 30 ML UDC PO SCH ×3 (09:55→16:17)
[2023-04-10] MEDS: NYSTATIN (PYXIS) 500,000 UNIT/5 ML ORAL.SUSP PO SCH ×3 (09:55→16:17)
[2023-04-10] MEDS: ASPIRIN 81 MG TAB.CHEW PO SCH (09:55)
[2023-04-10] MEDS: DOCUSATE SODIUM 100 MG CAPSULE PO SCH (09:55)
[2023-04-10] MEDS: POTASSIUM CL. PREMIX PERIPHER. 50 ML IV SCH ×2 (09:55→11:38)
[2023-04-10] MEDS: CIPROFLOXACIN HCL 0.3% 5 ML BOTTLE LEFTEYE SCH ×2 (09:55→16:18)
[2023-04-10] MEDS: AMLODIPINE BESYLATE 10 MG TABLET PO SCH (09:56)
[2023-04-10] MEDS: LOSARTAN POTASSIUM 50 MG TABLET PO SCH (09:56)
[2023-04-10] MEDS: DOLUTEGRAVIR SODIUM 50 MG PO SCH (09:56)
[2023-04-10] MEDS: FINASTERIDE (5 MG) 5 MG TABLET PO SCH (09:57)
[2023-04-10] MEDS: CLINDAMYCIN HCL 150 MG CAPSULE PO SCH ×4 (09:57→21:03)
[2023-04-10] MEDS: ACETAMINOPHEN 325 MG TABLET PO PRN ×2 (12:57→23:54)
[2023-04-10] MEDS: LEVOFLOXACIN (250MG) 250 MG TABLET PO SCH (16:17)
[2023-04-10] MEDS: COBICISTAT PO SCH (18:56)
[2023-04-10] MEDS: DARUNAVIR PO SCH (18:56)
[2023-04-10] MEDS: ATORVASTATIN 40 MG TABLET PO SCH (21:02)
[2023-04-10] MEDS: TAMSULOSIN 0.4 MG CAP.SR.24H PO SCH (21:03)
[2023-04-10] MEDS: ENOXAPARIN SODIUM 40 MG/0.4 ML DISP.SYRIN SQ SCH ×2 (21:11→21:27)
[2023-04-11] VITALS (27 sets, daily range): BP systolic 90–139; BP diastolic 47–67; TEMP 97.4–101.2; O2SAT 90–96
[2023-04-11 06:21] LABS: BASOPHILS % (AUTO) 0.1 % (0.0-2.0); EOSINOPHILS % (AUTO) 0.1 % (0.0-6.0); HEMATOCRIT 23 % (39-51); HEMOGLOBIN 7.4 g/dL (13.5-17.5); LYMPHOCYTES # (AUTO) 1.2 K/uL (0.8-4.8); MEAN CORPUSCULAR HEMOGLOBIN 28 PG (26.0-33.0); MEAN CORPUSCULAR HGB CONC 32 g/dl (31.0-36.0); MEAN CORPUSCULAR VOLUME 87 fL (80-96); MONOCYTES # (AUTO) 0.4 K/uL (0.1-1.30); MONOCYTES % (AUTO) 6.1 % (2.0-12.0); NEUTROPHILS # (AUTO) 5.1 K/uL (1.8-8.9); NEUTROPHILS % (AUTO) 75.7 % (43.0-81.0); PLATELET COUNT (AUTO) 182 K/uL (150-450); RED BLOOD CELL COUNT(AUTO) 2.65 MIL/uL (4.5-6.0); WHITE BLOOD COUNT (AUTO) 6.7 K/uL (4.3-11.0)
[2023-04-11 06:46] LABS: CALCIUM, SERUM 8.4 mg/dL (8.5-10.1); CREATININE 1.1 mg/dL (0.6-1.3); POTASSIUM 3.1 mmol/L (3.5-5.1)
[2023-04-11] MEDS: PROSOURCE / PROSTAT (PYXIS) 30 ML UDC PO SCH ×3 (08:00→17:00)
[2023-04-11] MEDS: NYSTATIN (PYXIS) 500,000 UNIT/5 ML ORAL.SUSP PO SCH ×3 (08:12→17:16)
[2023-04-11] MEDS: CLINDAMYCIN HCL 150 MG CAPSULE PO SCH ×2 (08:12→15:54)
[2023-04-11] MEDS: DOCUSATE SODIUM 100 MG CAPSULE PO SCH (08:12)
[2023-04-11] MEDS: FINASTERIDE (5 MG) 5 MG TABLET PO SCH (08:12)
[2023-04-11] MEDS: ASPIRIN 81 MG TAB.CHEW PO SCH (08:12)
[2023-04-11] MEDS: DOLUTEGRAVIR SODIUM 50 MG PO SCH (08:13)
[2023-04-11] MEDS: AMLODIPINE BESYLATE 10 MG TABLET PO SCH (08:13)
[2023-04-11] MEDS: LOSARTAN POTASSIUM 50 MG TABLET PO SCH (08:14)
[2023-04-11] MEDS: CIPROFLOXACIN HCL 0.3% 5 ML BOTTLE LEFTEYE SCH ×2 (08:18→17:20)
[2023-04-11] MEDS: IV D5/ 0.9% NACL 1,000 ML IV PRN ×2 (08:21→19:24)
[2023-04-11] MEDS: POTASSIUM CL. PREMIX PERIPHER. 50 ML IV SCH ×4 (09:26→12:54)
[2023-04-11] MEDS: LEVOFLOXACIN (250MG) 250 MG TABLET PO SCH (15:54)
[2023-04-11] MEDS: MEROPENEM 1 G in IV NS 0.9% 100 ML IV SCH (17:16)
[2023-04-11] MEDS: COBICISTAT PO SCH (17:18)
[2023-04-11] MEDS: DARUNAVIR PO SCH (17:18)
[2023-04-11] MEDS: ENOXAPARIN SODIUM 40 MG/0.4 ML DISP.SYRIN SQ SCH (22:00)
[2023-04-11] MEDS: TAMSULOSIN 0.4 MG CAP.SR.24H PO SCH (23:55)
[2023-04-11] MEDS: ATORVASTATIN 40 MG TABLET PO SCH (23:56)
[2023-04-12] VITALS (46 sets, daily range): BP systolic 96–169; BP diastolic 48–150; TEMP 97–100.8; O2SAT 79–98
[2023-04-12 05:10] LABS: BASOPHILS % (AUTO) 0.2 % (0.0-2.0); EOSINOPHILS % (AUTO) 0.4 % (0.0-6.0); HEMATOCRIT 27 % (39-51); HEMOGLOBIN 8.5 g/dL (13.5-17.5); LYMPHOCYTES # (AUTO) 1.4 K/uL (0.8-4.8); MEAN CORPUSCULAR HEMOGLOBIN 27 PG (26.0-33.0); MEAN CORPUSCULAR HGB CONC 32 g/dl (31.0-36.0); MEAN CORPUSCULAR VOLUME 87 fL (80-96); MONOCYTES # (AUTO) 0.3 K/uL (0.1-1.30); MONOCYTES % (AUTO) 5.8 % (2.0-12.0); NEUTROPHILS # (AUTO) 4.3 K/uL (1.8-8.9); NEUTROPHILS % (AUTO) 70.6 % (43.0-81.0); PLATELET COUNT (AUTO) 190 K/uL (150-450); RED BLOOD CELL COUNT(AUTO) 3.08 MIL/uL (4.5-6.0); RED CELL DISTRIBUTION WIDTH 17.5 % (11.5-15.0); WHITE BLOOD COUNT (AUTO) 6.1 K/uL (4.3-11.0)
[2023-04-12 05:22] LABS: CALCIUM, SERUM 8.6 mg/dL (8.5-10.1); CREATININE 0.8 mg/dL (0.6-1.3); POTASSIUM 3.1 mmol/L (3.5-5.1)
[2023-04-12] MEDS: MEROPENEM 1 G in IV NS 0.9% 100 ML IV SCH ×3 (05:37→21:32)
[2023-04-12] MEDS: NYSTATIN (PYXIS) 500,000 UNIT/5 ML ORAL.SUSP PO SCH ×3 (08:07→16:12)
[2023-04-12] MEDS: PROSOURCE / PROSTAT (PYXIS) 30 ML UDC PO SCH (08:07)
[2023-04-12] MEDS: DOCUSATE SODIUM 100 MG CAPSULE PO SCH (08:08)
[2023-04-12] MEDS: AMLODIPINE BESYLATE 10 MG TABLET PO SCH (08:08)
[2023-04-12] MEDS: ASPIRIN 81 MG TAB.CHEW PO SCH (08:08)
[2023-04-12] MEDS: FINASTERIDE (5 MG) 5 MG TABLET PO SCH (08:08)
[2023-04-12] MEDS: CIPROFLOXACIN HCL 0.3% 5 ML BOTTLE LEFTEYE SCH ×2 (08:09→16:13)
[2023-04-12] MEDS: DOLUTEGRAVIR SODIUM 50 MG PO SCH (08:09)
[2023-04-12] MEDS: LOSARTAN POTASSIUM 50 MG TABLET PO SCH (08:09)
[2023-04-12 08:55] LABS: ABG BASE EXCESS 0.8 mmol/L; ABG OXYGEN SATURATION 92.4 % (92.0-98.5); ABG PCO2 35.5 mmHg (35.0-45.0); ABG PH 7.458 (7.350-7.450); ABG PO2 69.1 mmHg (75.0-100.0); ABG TOTAL HEMOGLOBIN 9.1 G/dL (13.5-18.0); AaDO2 247.5 mmHg; COHb 0.3 % (0.5-1.5); MetHb 0.3 % (0.0-1.5); O2Hb 91.8 % (94.0-97.0); SITE, ABG Right Radial
[2023-04-12] MEDS ORDERED: POTASSIUM CHLORIDE 20 MEQ POWDER PACKET GT ONE (09:00)
[2023-04-12] MEDS: IV D5/ 0.9% NACL 1,000 ML IV PRN ×2 (09:32→20:09)
[2023-04-12] MEDS: PROSOURCE / PROSTAT (PYXIS) 30 ML UDC GT SCH ×2 (11:42→16:12)
[2023-04-12] MEDS: JEVITY 1.2 CAL 1,000 ML BOTTLE GT PRN (12:31)
[2023-04-12] MEDS: DARUNAVIR GT SCH (18:08)
[2023-04-12] MEDS: COBICISTAT GT SCH (18:08)
[2023-04-12] MEDS: TAMSULOSIN 0.4 MG CAP.SR.24H GT SCH (21:33)
[2023-04-12] MEDS: ATORVASTATIN 40 MG TABLET GT SCH (21:34)
[2023-04-12] MEDS: ACETAMINOPHEN 650 MG/20.3 ML UDC GT PRN (21:35)
[2023-04-12] MEDS: ENOXAPARIN SODIUM 40 MG/0.4 ML DISP.SYRIN SQ SCH (21:56)
[2023-04-13] VITALS (33 sets, daily range): BP systolic 92–143; BP diastolic 48–67; TEMP 97–98.9; O2SAT 94–100
[2023-04-13] MEDS: MEROPENEM 1 G in IV NS 0.9% 100 ML IV SCH ×3 (04:41→21:00)
[2023-04-13 05:01] LABS: BASOPHILS % (AUTO) 0.1 % (0.0-2.0); EOSINOPHILS % (AUTO) 0.2 % (0.0-6.0); HEMATOCRIT 24 % (39-51); HEMOGLOBIN 7.6 g/dL (13.5-17.5); LYMPHOCYTES # (AUTO) 1.9 K/uL (0.8-4.8); LYMPHOCYTES % (AUTO) 25.5 % (20.0-44.0); MEAN CORPUSCULAR HEMOGLOBIN 28 PG (26.0-33.0); MEAN CORPUSCULAR HGB CONC 32 g/dl (31.0-36.0); MEAN CORPUSCULAR VOLUME 87 fL (80-96); MONOCYTES # (AUTO) 0.4 K/uL (0.1-1.30); MONOCYTES % (AUTO) 5.5 % (2.0-12.0); NEUTROPHILS # (AUTO) 5.2 K/uL (1.8-8.9); NEUTROPHILS % (AUTO) 68.7 % (43.0-81.0); PLATELET COUNT (AUTO) 204 K/uL (150-450); RED BLOOD CELL COUNT(AUTO) 2.74 MIL/uL (4.5-6.0); RED CELL DISTRIBUTION WIDTH 18.1 % (11.5-15.0); WHITE BLOOD COUNT (AUTO) 7.6 K/uL (4.3-11.0)
[2023-04-13 05:07] LABS: CALCIUM, SERUM 8.3 mg/dL (8.5-10.1); CREATININE 0.9 mg/dL (0.6-1.3)
[2023-04-13 06:22] LABS: ABG BASE EXCESS -0.8 mmol/L; ABG OXYGEN SATURATION 87.1 % (92.0-98.5); ABG PCO2 30.8 mmHg (35.0-45.0); ABG PH 7.476 (7.350-7.450); ABG PO2 55.2 mmHg (75.0-100.0); ABG TOTAL HEMOGLOBIN 10.1 G/dL (13.5-18.0); AaDO2 223.4 mmHg; COHb 0.3 % (0.5-1.5); MetHb 0.3 % (0.0-1.5); O2Hb 86.6 % (94.0-97.0); SITE, ABG Right Radial; VENT MODE, BG NASAL CANNULA
[2023-04-13] MEDS: AMLODIPINE BESYLATE 10 MG TABLET GT SCH (08:35)
[2023-04-13] MEDS: DOCUSATE SODIUM LIQ 100 MG/10 ML UDC GT SCH (08:35)
[2023-04-13] MEDS: ASPIRIN 81 MG TAB.CHEW GT SCH (08:35)
[2023-04-13] MEDS: LOSARTAN POTASSIUM 50 MG TABLET GT SCH (08:36)
[2023-04-13] MEDS: NYSTATIN (PYXIS) 500,000 UNIT/5 ML ORAL.SUSP PO SCH ×3 (08:36→16:20)
[2023-04-13] MEDS: FINASTERIDE (5 MG) 5 MG TABLET GT SCH (08:36)
[2023-04-13] MEDS: PROSOURCE / PROSTAT (PYXIS) 30 ML UDC GT SCH ×3 (08:37→16:22)
[2023-04-13] MEDS: CIPROFLOXACIN HCL 0.3% 5 ML BOTTLE LEFTEYE SCH ×2 (08:37→16:22)
[2023-04-13] MEDS: DOLUTEGRAVIR SODIUM 50 MG GT SCH (08:39)
[2023-04-13] MEDS: IV D5/ 0.9% NACL 1,000 ML IV PRN (08:40)
[2023-04-13] MEDS: POTASSIUM CL. PREMIX PERIPHER. 50 ML IV SCH ×4 (09:22→13:35)
[2023-04-13] MEDS: JEVITY 1.2 CAL 1,000 ML BOTTLE GT PRN (15:11)
[2023-04-13] MEDS: IV NS 0.9% 250 ML IV PRN (16:25)
[2023-04-13] MEDS: DARUNAVIR GT SCH (17:31)
[2023-04-13] MEDS: COBICISTAT GT SCH (17:31)
[2023-04-13 17:38] LABS: CALCIUM, SERUM 8.5 mg/dL (8.5-10.1); CARBON DIOXIDE 26 mmol/L (21-32); CHLORIDE 113 mmol/L (98-107); CREATININE 0.9 mg/dL (0.6-1.3); GLUCOSE 125 mg/dL (74-106); POTASSIUM 3.8 mmol/L (3.5-5.1); SODIUM SERUM 143 mmol/L (136-145); UREA NITROGEN, BLOOD 19 mg/dL (7-18)
[2023-04-13] MEDS: Z GUARD REMEDY 4 OZ OINT TP SCH (21:00)
[2023-04-13] MEDS: ATORVASTATIN 40 MG TABLET GT SCH (22:33)
[2023-04-13] MEDS: TAMSULOSIN 0.4 MG CAP.SR.24H GT SCH (22:33)
[2023-04-13] MEDS: ENOXAPARIN SODIUM 40 MG/0.4 ML DISP.SYRIN SQ SCH (22:34)
[2023-04-14] VITALS (36 sets, daily range): BP systolic 105–131; BP diastolic 55–66; TEMP 97.8–99; O2SAT 94–99
[2023-04-14] MEDS: MEROPENEM 1 G in IV NS 0.9% 100 ML IV SCH ×3 (05:00→21:02)
[2023-04-14 05:10] LABS: BASOPHILS % (AUTO) 0.1 % (0.0-2.0); EOSINOPHILS % (AUTO) 0.3 % (0.0-6.0); HEMATOCRIT 23 % (39-51); HEMOGLOBIN 7.5 g/dL (13.5-17.5); LYMPHOCYTES # (AUTO) 2.2 K/uL (0.8-4.8); LYMPHOCYTES % (AUTO) 27.2 % (20.0-44.0); MEAN CORPUSCULAR HEMOGLOBIN 28 PG (26.0-33.0); MEAN CORPUSCULAR HGB CONC 33 g/dl (31.0-36.0); MEAN CORPUSCULAR VOLUME 87 fL (80-96); MONOCYTES # (AUTO) 0.4 K/uL (0.1-1.30); MONOCYTES % (AUTO) 5.4 % (2.0-12.0); NEUTROPHILS # (AUTO) 5.4 K/uL (1.8-8.9); PLATELET COUNT (AUTO) 213 K/uL (150-450); RED BLOOD CELL COUNT(AUTO) 2.63 MIL/uL (4.5-6.0); RED CELL DISTRIBUTION WIDTH 17.8 % (11.5-15.0)
[2023-04-14 05:25] LABS: CALCIUM, SERUM 8.5 mg/dL (8.5-10.1); CREATININE 0.8 mg/dL (0.6-1.3); POTASSIUM 3.5 mmol/L (3.5-5.1)
[2023-04-14] MEDS: ASPIRIN 81 MG TAB.CHEW GT SCH (09:24)
[2023-04-14] MEDS: DOCUSATE SODIUM LIQ 100 MG/10 ML UDC GT SCH (09:24)
[2023-04-14] MEDS: AMLODIPINE BESYLATE 10 MG TABLET GT SCH (09:25)
[2023-04-14] MEDS: LOSARTAN POTASSIUM 50 MG TABLET GT SCH (09:25)
[2023-04-14] MEDS: FINASTERIDE (5 MG) 5 MG TABLET GT SCH (09:25)
[2023-04-14] MEDS: CIPROFLOXACIN HCL 0.3% 5 ML BOTTLE LEFTEYE SCH ×2 (09:26→16:39)
[2023-04-14] MEDS: PROSOURCE / PROSTAT (PYXIS) 30 ML UDC GT SCH ×3 (09:26→16:39)
[2023-04-14] MEDS: NYSTATIN (PYXIS) 500,000 UNIT/5 ML ORAL.SUSP PO SCH ×3 (09:26→16:39)
[2023-04-14] MEDS: Z GUARD REMEDY 4 OZ OINT TP SCH ×2 (09:27→21:06)
[2023-04-14] MEDS: DOLUTEGRAVIR SODIUM 50 MG GT SCH (09:29)
[2023-04-14] MEDS: FUROSEMIDE 40 MG/4 ML VIAL IV SCH ×2 (11:30→16:39)
[2023-04-14] MEDS: JEVITY 1.2 CAL 1,000 ML BOTTLE GT PRN (15:43)
[2023-04-14] MEDS: COBICISTAT GT SCH (17:46)
[2023-04-14] MEDS: DARUNAVIR GT SCH (17:46)
[2023-04-14] MEDS: TAMSULOSIN 0.4 MG CAP.SR.24H GT SCH (21:41)
[2023-04-14] MEDS: ATORVASTATIN 40 MG TABLET GT SCH (21:41)
[2023-04-14] MEDS: ENOXAPARIN SODIUM 40 MG/0.4 ML DISP.SYRIN SQ SCH (21:42)
[2023-04-15] VITALS (35 sets, daily range): BP systolic 107–134; BP diastolic 52–64; TEMP 97.6–100.3; O2SAT 95–100
[2023-04-15 04:36] LABS: BASOPHILS % (AUTO) 0.1 % (0.0-2.0); EOSINOPHILS % (AUTO) 0.6 % (0.0-6.0); HEMATOCRIT 23 % (39-51); HEMOGLOBIN 7.3 g/dL (13.5-17.5); LYMPHOCYTES # (AUTO) 2.1 K/uL (0.8-4.8); LYMPHOCYTES % (AUTO) 27.5 % (20.0-44.0); MEAN CORPUSCULAR HEMOGLOBIN 28 PG (26.0-33.0); MEAN CORPUSCULAR HGB CONC 32 g/dl (31.0-36.0); MEAN CORPUSCULAR VOLUME 87 fL (80-96); MONOCYTES # (AUTO) 0.4 K/uL (0.1-1.30); MONOCYTES % (AUTO) 5.7 % (2.0-12.0); NEUTROPHILS # (AUTO) 5.1 K/uL (1.8-8.9); NEUTROPHILS % (AUTO) 66.1 % (43.0-81.0); PLATELET COUNT (AUTO) 233 K/uL (150-450); RED BLOOD CELL COUNT(AUTO) 2.64 MIL/uL (4.5-6.0); WHITE BLOOD COUNT (AUTO) 7.7 K/uL (4.3-11.0)
[2023-04-15 04:45] LABS: CALCIUM, SERUM 8.9 mg/dL (8.5-10.1); CREATININE 0.9 mg/dL (0.6-1.3); POTASSIUM 3.4 mmol/L (3.5-5.1)
[2023-04-15] MEDS: MEROPENEM 1 G in IV NS 0.9% 100 ML IV SCH ×3 (05:00→21:00)
[2023-04-15 07:18] LABS: ABG BASE EXCESS 6.2 mmol/L; ABG OXYGEN SATURATION 93.6 % (92.0-98.5); ABG PCO2 40.4 mmHg (35.0-45.0); ABG PH 7.489 (7.350-7.450); ABG PO2 71.6 mmHg (75.0-100.0); ABG TOTAL HEMOGLOBIN 10.4 G/dL (13.5-18.0); AaDO2 456.4 mmHg; COHb 0.3 % (0.5-1.5); MetHb 0.1 % (0.0-1.5); O2Hb 93.2 % (94.0-97.0); SITE, ABG Left Radial; VENT MODE, BG HFNC 60L 80
[2023-04-15] MEDS: PROSOURCE / PROSTAT (PYXIS) 30 ML UDC GT SCH ×3 (08:42→17:54)
[2023-04-15] MEDS: ASPIRIN 81 MG TAB.CHEW GT SCH (08:42)
[2023-04-15] MEDS: FUROSEMIDE 40 MG/4 ML VIAL IV SCH ×2 (08:43→16:44)
[2023-04-15] MEDS: FINASTERIDE (5 MG) 5 MG TABLET GT SCH (08:43)
[2023-04-15] MEDS: NYSTATIN (PYXIS) 500,000 UNIT/5 ML ORAL.SUSP PO SCH ×3 (08:43→16:44)
[2023-04-15] MEDS: DOCUSATE SODIUM LIQ 100 MG/10 ML UDC GT SCH (08:44)
[2023-04-15] MEDS: AMLODIPINE BESYLATE 10 MG TABLET GT SCH (08:44)
[2023-04-15] MEDS: LOSARTAN POTASSIUM 50 MG TABLET GT SCH (08:44)
[2023-04-15] MEDS: CIPROFLOXACIN HCL 0.3% 5 ML BOTTLE LEFTEYE SCH ×2 (08:46→16:45)
[2023-04-15] MEDS: DOLUTEGRAVIR SODIUM 50 MG GT SCH (08:46)
[2023-04-15] MEDS: Z GUARD REMEDY 4 OZ OINT TP SCH ×2 (08:47→21:02)
[2023-04-15] MEDS ORDERED: POTASSIUM CHLORIDE 20 MEQ POWDER PACKET GT ONE (11:00)
[2023-04-15] MEDS: JEVITY 1.2 CAL 1,000 ML BOTTLE GT PRN (16:32)
[2023-04-15] MEDS: COBICISTAT GT SCH (17:54)
[2023-04-15] MEDS: DARUNAVIR GT SCH (17:54)
[2023-04-15] MEDS: ATORVASTATIN 40 MG TABLET GT SCH (21:32)
[2023-04-15] MEDS: ENOXAPARIN SODIUM 40 MG/0.4 ML DISP.SYRIN SQ SCH (21:32)
[2023-04-15] MEDS: TAMSULOSIN 0.4 MG CAP.SR.24H GT SCH (21:32)
[2023-04-16] VITALS (36 sets, daily range): BP systolic 91–141; BP diastolic 53–83; TEMP 98.3–99.7; O2SAT 95–100
[2023-04-16] MEDS: MEROPENEM 1 G in IV NS 0.9% 100 ML IV SCH ×3 (04:00→21:00)
[2023-04-16 04:26] LABS: BASOPHILS % (AUTO) 0.1 % (0.0-2.0); EOSINOPHILS # (AUTO) 0.1 K/uL (0.0-0.7); EOSINOPHILS % (AUTO) 0.8 % (0.0-6.0); HEMATOCRIT 23 % (39-51); HEMOGLOBIN 7.5 g/dL (13.5-17.5); LYMPHOCYTES % (AUTO) 24.2 % (20.0-44.0); MEAN CORPUSCULAR HEMOGLOBIN 28 PG (26.0-33.0); MEAN CORPUSCULAR HGB CONC 32 g/dl (31.0-36.0); MEAN CORPUSCULAR VOLUME 87 fL (80-96); MONOCYTES # (AUTO) 0.5 K/uL (0.1-1.30); MONOCYTES % (AUTO) 5.7 % (2.0-12.0); NEUTROPHILS # (AUTO) 5.7 K/uL (1.8-8.9); NEUTROPHILS % (AUTO) 69.2 % (43.0-81.0); PLATELET COUNT (AUTO) 264 K/uL (150-450); RED BLOOD CELL COUNT(AUTO) 2.68 MIL/uL (4.5-6.0); RED CELL DISTRIBUTION WIDTH 18.3 % (11.5-15.0); WHITE BLOOD COUNT (AUTO) 8.2 K/uL (4.3-11.0)
[2023-04-16 04:40] LABS: CALCIUM, SERUM 9.4 mg/dL (8.5-10.1); CREATININE 0.8 mg/dL (0.6-1.3); POTASSIUM 3.8 mmol/L (3.5-5.1)
[2023-04-16] MEDS: NYSTATIN (PYXIS) 500,000 UNIT/5 ML ORAL.SUSP PO SCH ×3 (08:07→16:43)
[2023-04-16] MEDS: FINASTERIDE (5 MG) 5 MG TABLET GT SCH (08:07)
[2023-04-16] MEDS: ASPIRIN 81 MG TAB.CHEW GT SCH (08:07)
[2023-04-16] MEDS: AMLODIPINE BESYLATE 10 MG TABLET GT SCH (08:07)
[2023-04-16] MEDS: LOSARTAN POTASSIUM 50 MG TABLET GT SCH (08:07)
[2023-04-16] MEDS: FUROSEMIDE 40 MG/4 ML VIAL IV SCH ×2 (08:07→16:43)
[2023-04-16] MEDS: DOCUSATE SODIUM LIQ 100 MG/10 ML UDC GT SCH (08:12)
[2023-04-16] MEDS: PROSOURCE / PROSTAT (PYXIS) 30 ML UDC GT SCH ×3 (08:12→16:44)
[2023-04-16] MEDS: DOLUTEGRAVIR SODIUM 50 MG GT SCH (08:13)
[2023-04-16] MEDS: CIPROFLOXACIN HCL 0.3% 5 ML BOTTLE LEFTEYE SCH ×2 (08:14→16:44)
[2023-04-16] MEDS: Z GUARD REMEDY 4 OZ OINT TP SCH ×2 (08:15→21:13)
[2023-04-16] MEDS: JEVITY 1.2 CAL 1,000 ML BOTTLE GT PRN (16:14)
[2023-04-16] MEDS: DARUNAVIR GT SCH (17:00)
[2023-04-16] MEDS: COBICISTAT GT SCH (17:00)
[2023-04-16] MEDS: TAMSULOSIN 0.4 MG CAP.SR.24H GT SCH (21:11)
[2023-04-16] MEDS: ATORVASTATIN 40 MG TABLET GT SCH (21:11)
[2023-04-16] MEDS: ENOXAPARIN SODIUM 40 MG/0.4 ML DISP.SYRIN SQ SCH (21:12)
[2023-04-17] VITALS (37 sets, daily range): BP systolic 99–121; BP diastolic 52–61; TEMP 97.9–100.7; O2SAT 93–98
[2023-04-17] MEDS: MEROPENEM 1 G in IV NS 0.9% 100 ML IV SCH ×3 (04:01→21:00)
[2023-04-17] MEDS: DOCUSATE SODIUM LIQ 100 MG/10 ML UDC GT SCH (08:03)
[2023-04-17] MEDS: ASPIRIN 81 MG TAB.CHEW GT SCH (08:16)
[2023-04-17] MEDS: NYSTATIN (PYXIS) 500,000 UNIT/5 ML ORAL.SUSP PO SCH ×3 (08:17→16:08)
[2023-04-17] MEDS: AMLODIPINE BESYLATE 10 MG TABLET GT SCH (08:17)
[2023-04-17] MEDS: FUROSEMIDE 40 MG/4 ML VIAL IV SCH ×2 (08:17→16:08)
[2023-04-17] MEDS: DOLUTEGRAVIR SODIUM 50 MG GT SCH (08:17)
[2023-04-17] MEDS: FINASTERIDE (5 MG) 5 MG TABLET GT SCH (08:17)
[2023-04-17] MEDS: LOSARTAN POTASSIUM 50 MG TABLET GT SCH (08:18)
[2023-04-17] MEDS: CIPROFLOXACIN HCL 0.3% 5 ML BOTTLE LEFTEYE SCH ×2 (08:36→16:09)
[2023-04-17] MEDS: Z GUARD REMEDY 4 OZ OINT TP SCH ×2 (08:37→21:26)
[2023-04-17] MEDS: PROSOURCE / PROSTAT (PYXIS) 30 ML UDC GT SCH ×3 (08:39→16:52)
[2023-04-17] MEDS: JEVITY 1.2 CAL 1,000 ML BOTTLE GT PRN (13:58)
[2023-04-17] MEDS: COBICISTAT GT SCH (17:03)
[2023-04-17] MEDS: DARUNAVIR GT SCH (17:03)
[2023-04-17] MEDS: TAMSULOSIN 0.4 MG CAP.SR.24H GT SCH (21:26)
[2023-04-17] MEDS: ATORVASTATIN 40 MG TABLET GT SCH (21:26)
[2023-04-17] MEDS: ENOXAPARIN SODIUM 40 MG/0.4 ML DISP.SYRIN SQ SCH (21:28)
[2023-04-18] VITALS (36 sets, daily range): BP systolic 98–131; BP diastolic 53–72; TEMP 97.5–99.1; O2SAT 89–98
[2023-04-18 04:29] LABS: BASOPHILS % (AUTO) 0.1 % (0.0-2.0); EOSINOPHILS # (AUTO) 0.1 K/uL (0.0-0.7); EOSINOPHILS % (AUTO) 1.1 % (0.0-6.0); HEMATOCRIT 23 % (39-51); HEMOGLOBIN 7.3 g/dL (13.5-17.5); LYMPHOCYTES # (AUTO) 2.3 K/uL (0.8-4.8); LYMPHOCYTES % (AUTO) 23.7 % (20.0-44.0); MEAN CORPUSCULAR HEMOGLOBIN 28 PG (26.0-33.0); MEAN CORPUSCULAR HGB CONC 32 g/dl (31.0-36.0); MEAN CORPUSCULAR VOLUME 87 fL (80-96); MONOCYTES # (AUTO) 0.7 K/uL (0.1-1.30); MONOCYTES % (AUTO) 7.5 % (2.0-12.0); NEUTROPHILS # (AUTO) 6.6 K/uL (1.8-8.9); NEUTROPHILS % (AUTO) 67.6 % (43.0-81.0); PLATELET COUNT (AUTO) 364 K/uL (150-450); RED BLOOD CELL COUNT(AUTO) 2.65 MIL/uL (4.5-6.0); WHITE BLOOD COUNT (AUTO) 9.8 K/uL (4.3-11.0)
[2023-04-18 04:49] LABS: CALCIUM, SERUM 9.4 mg/dL (8.5-10.1); POTASSIUM 3.8 mmol/L (3.5-5.1)
[2023-04-18] MEDS: MEROPENEM 1 G in IV NS 0.9% 100 ML IV SCH ×3 (04:58→21:17)
[2023-04-18 05:17] LABS: CREATININE 1.1 mg/dL (0.6-1.3)
[2023-04-18] MEDS: PROSOURCE / PROSTAT (PYXIS) 30 ML UDC GT SCH ×3 (07:37→16:28)
[2023-04-18] MEDS: NYSTATIN (PYXIS) 500,000 UNIT/5 ML ORAL.SUSP PO SCH ×3 (08:38→16:53)
[2023-04-18] MEDS: FINASTERIDE (5 MG) 5 MG TABLET GT SCH (08:38)
[2023-04-18] MEDS: ASPIRIN 81 MG TAB.CHEW GT SCH (08:38)
[2023-04-18] MEDS: DOCUSATE SODIUM LIQ 100 MG/10 ML UDC GT SCH (08:38)
[2023-04-18] MEDS: FUROSEMIDE 40 MG/4 ML VIAL IV SCH ×2 (08:38→16:53)
[2023-04-18] MEDS: AMLODIPINE BESYLATE 10 MG TABLET GT SCH (08:39)
[2023-04-18] MEDS: Z GUARD REMEDY 4 OZ OINT TP SCH ×2 (08:42→21:19)
[2023-04-18] MEDS: DOLUTEGRAVIR SODIUM 50 MG GT SCH (08:47)
[2023-04-18] MEDS: LOSARTAN POTASSIUM 50 MG TABLET GT SCH (08:48)
[2023-04-18] MEDS: CIPROFLOXACIN HCL 0.3% 5 ML BOTTLE LEFTEYE SCH ×2 (08:49→16:51)
[2023-04-18] MEDS: JEVITY 1.2 CAL 1,000 ML BOTTLE GT PRN (09:43)
[2023-04-18] MEDS: COBICISTAT GT SCH (17:07)
[2023-04-18] MEDS: DARUNAVIR GT SCH (17:07)
[2023-04-18] MEDS: IV NS 0.9% 250 ML IV PRN (17:36)
[2023-04-18] MEDS: TAMSULOSIN 0.4 MG CAP.SR.24H GT SCH ×2 (22:40→23:00)
[2023-04-18] MEDS: ATORVASTATIN 40 MG TABLET GT SCH ×2 (22:40→23:00)
[2023-04-18] MEDS: ENOXAPARIN SODIUM 40 MG/0.4 ML DISP.SYRIN SQ SCH (23:03)
[2023-04-19] VITALS (35 sets, daily range): BP systolic 97–124; BP diastolic 53–63; TEMP 98–98.6; O2SAT 91–96
[2023-04-19 04:53] LABS: BASOPHILS % (AUTO) 0.1 % (0.0-2.0); EOSINOPHILS % (AUTO) 0.3 % (0.0-6.0); HEMATOCRIT 23 % (39-51); HEMOGLOBIN 7.3 g/dL (13.5-17.5); LYMPHOCYTES # (AUTO) 2.6 K/uL (0.8-4.8); LYMPHOCYTES % (AUTO) 16.2 % (20.0-44.0); MEAN CORPUSCULAR HEMOGLOBIN 27 PG (26.0-33.0); MEAN CORPUSCULAR HGB CONC 31 g/dl (31.0-36.0); MEAN CORPUSCULAR VOLUME 87 fL (80-96); MONOCYTES % (AUTO) 6.2 % (2.0-12.0); NEUTROPHILS # (AUTO) 12.2 K/uL (1.8-8.9); NEUTROPHILS % (AUTO) 77.2 % (43.0-81.0); PLATELET COUNT (AUTO) 384 K/uL (150-450); WHITE BLOOD COUNT (AUTO) 15.8 K/uL (4.3-11.0)
[2023-04-19 04:58] LABS: CALCIUM, SERUM 9.2 mg/dL (8.5-10.1); POTASSIUM 4.1 mmol/L (3.5-5.1)
[2023-04-19] MEDS: MEROPENEM 1 G in IV NS 0.9% 100 ML IV SCH (05:05)
[2023-04-19] MEDS: PROSOURCE / PROSTAT (PYXIS) 30 ML UDC GT SCH ×3 (08:00→11:22)
[2023-04-19] MEDS: CIPROFLOXACIN HCL 0.3% 5 ML BOTTLE LEFTEYE SCH ×2 (08:32→16:29)
[2023-04-19] MEDS: Z GUARD REMEDY 4 OZ OINT TP SCH ×2 (08:33→21:06)
[2023-04-19] MEDS: FUROSEMIDE 40 MG/4 ML VIAL IV SCH ×2 (08:38→16:31)
[2023-04-19] MEDS: LOSARTAN POTASSIUM 50 MG TABLET GT SCH ×2 (08:38→09:00)
[2023-04-19] MEDS: NYSTATIN (PYXIS) 500,000 UNIT/5 ML ORAL.SUSP PO SCH ×4 (08:38→16:28)
[2023-04-19] MEDS: DOCUSATE SODIUM LIQ 100 MG/10 ML UDC GT SCH ×2 (08:38→09:00)
[2023-04-19] MEDS: FINASTERIDE (5 MG) 5 MG TABLET GT SCH ×2 (08:38→09:00)
[2023-04-19] MEDS: ASPIRIN 81 MG TAB.CHEW GT SCH ×2 (08:39→09:00)
[2023-04-19] MEDS: AMLODIPINE BESYLATE 10 MG TABLET GT SCH (08:39)
[2023-04-19] MEDS: DOLUTEGRAVIR SODIUM 50 MG GT SCH (08:39)
[2023-04-19] MEDS ORDERED: hydrALAZINE HCL IV 20 MG VIAL IV PRN (11:00)
[2023-04-19] MEDS: COBICISTAT GT SCH (17:05)
[2023-04-19] MEDS: DARUNAVIR GT SCH (17:05)
[2023-04-19] MEDS: TAMSULOSIN 0.4 MG CAP.SR.24H GT SCH (22:00)
[2023-04-19] MEDS: ATORVASTATIN 40 MG TABLET GT SCH (22:00)
[2023-04-19] MEDS: ENOXAPARIN SODIUM 40 MG/0.4 ML DISP.SYRIN SQ SCH ×2 (22:26)
[2023-04-20] VITALS (28 sets, daily range): BP systolic 106–130; BP diastolic 54–72; TEMP 97.6–100.1; O2SAT 91–100
[2023-04-20] MEDS ORDERED: BLOOD SUGAR DIAGNOSTIC 1 EACH STRIP IN ONE (00:30)
[2023-04-20] MEDS: IV NS 0.9% 250 ML IV PRN (06:07)
[2023-04-20] MEDS: AMLODIPINE BESYLATE 10 MG TABLET GT SCH (09:00)
[2023-04-20] MEDS: ASPIRIN 81 MG TAB.CHEW GT SCH (09:00)
[2023-04-20] MEDS: DOLUTEGRAVIR SODIUM 50 MG GT SCH (09:00)
[2023-04-20] MEDS: FINASTERIDE (5 MG) 5 MG TABLET GT SCH (09:00)
[2023-04-20] MEDS: DOCUSATE SODIUM LIQ 100 MG/10 ML UDC GT SCH (09:00)
[2023-04-20] MEDS: LOSARTAN POTASSIUM 50 MG TABLET GT SCH (09:00)
[2023-04-20] MEDS: NYSTATIN (PYXIS) 500,000 UNIT/5 ML ORAL.SUSP PO SCH ×3 (09:17→17:43)
[2023-04-20] MEDS: FUROSEMIDE 40 MG/4 ML VIAL IV SCH ×2 (09:18→17:43)
[2023-04-20] MEDS: CIPROFLOXACIN HCL 0.3% 5 ML BOTTLE LEFTEYE SCH ×2 (09:19→17:44)
[2023-04-20] MEDS: Z GUARD REMEDY 4 OZ OINT TP SCH ×2 (09:19→21:19)
[2023-04-20] MEDS ORDERED: TPN/PPN PER PHARMACY IV PRN (10:00)
[2023-04-20 11:40] LABS: CALCIUM, SERUM 9.7 mg/dL (8.5-10.1); CREATININE 1.1 mg/dL (0.6-1.3); PHOSPHORUS 3.3 mg/dL (2.5-4.9); POTASSIUM 3.4 mmol/L (3.5-5.1)
[2023-04-20] MEDS: POTASSIUM CL. PREMIX PERIPHER. 50 ML IV SCH ×2 (13:17→14:23)
[2023-04-20] MEDS ORDERED: TPN BAG 1 IV SCH ×4 (14:00)
[2023-04-20] MEDS: DARUNAVIR GT SCH (17:44)
[2023-04-20] MEDS: COBICISTAT GT SCH (17:44)
[2023-04-20] MEDS: ATORVASTATIN 40 MG TABLET GT SCH (22:00)
[2023-04-20] MEDS: TAMSULOSIN 0.4 MG CAP.SR.24H GT SCH (22:00)
[2023-04-20] MEDS: ENOXAPARIN SODIUM 40 MG/0.4 ML DISP.SYRIN SQ SCH (22:43)
[2023-04-21] VITALS (24 sets, daily range): BP systolic 111–137; BP diastolic 59–86; TEMP 97.4–99.6; O2SAT 97–100
[2023-04-21] MEDS: DOCUSATE SODIUM LIQ 100 MG/10 ML UDC GT SCH (08:17)
[2023-04-21] MEDS: ASPIRIN 81 MG TAB.CHEW GT SCH (08:17)
[2023-04-21] MEDS: LOSARTAN POTASSIUM 50 MG TABLET GT SCH (08:17)
[2023-04-21] MEDS: DOLUTEGRAVIR SODIUM 50 MG GT SCH (08:17)
[2023-04-21] MEDS: AMLODIPINE BESYLATE 10 MG TABLET GT SCH (08:17)
[2023-04-21] MEDS: FINASTERIDE (5 MG) 5 MG TABLET GT SCH (08:18)
[2023-04-21 08:20] LABS: ABG BASE EXCESS 6.2 mmol/L; ABG OXYGEN SATURATION 95.3 % (92.0-98.5); ABG PCO2 41.1 mmHg (35.0-45.0); ABG PH 7.484 (7.350-7.450); ABG PO2 82.8 mmHg (75.0-100.0); AaDO2 227.5 mmHg; COHb 0.3 % (0.5-1.5); MetHb 0.2 % (0.0-1.5); O2Hb 94.8 % (94.0-97.0); SITE, ABG Right Brachial; VENT MODE, BG HFNC 40LPM 50%
[2023-04-21] MEDS: CIPROFLOXACIN HCL 0.3% 5 ML BOTTLE LEFTEYE SCH ×2 (09:53→16:38)
[2023-04-21] MEDS: Z GUARD REMEDY 4 OZ OINT TP SCH ×2 (09:53→21:23)
[2023-04-21] MEDS: FUROSEMIDE 40 MG/4 ML VIAL IV SCH ×2 (09:56→16:38)
[2023-04-21] MEDS: NYSTATIN (PYXIS) 500,000 UNIT/5 ML ORAL.SUSP PO SCH ×3 (10:00→16:38)
[2023-04-21 11:21] LABS: CALCIUM, SERUM 9.4 mg/dL (8.5-10.1); MAGNESIUM 2.8 mg/dL (1.8-2.4); PHOSPHORUS 2.3 mg/dL (2.5-4.9)
[2023-04-21] MEDS ORDERED: POTASSIUM PHOSPHATE MM 7.5 MMOL in IV NS 0.9% 100 ML IV SCH (13:00)
[2023-04-21] MEDS ORDERED: TPN BAG #2 IV SCH ×4 (14:00)
[2023-04-21] MEDS: COBICISTAT GT SCH (16:34)
[2023-04-21] MEDS: DARUNAVIR GT SCH (16:34)
[2023-04-21] MEDS: POTASSIUM CL. PREMIX PERIPHER. 50 ML IV SCH ×5 (16:38→21:33)
[2023-04-21] MEDS: TAMSULOSIN 0.4 MG CAP.SR.24H GT SCH (21:22)
[2023-04-21] MEDS: ATORVASTATIN 40 MG TABLET GT SCH (21:22)
[2023-04-21] MEDS: ENOXAPARIN SODIUM 40 MG/0.4 ML DISP.SYRIN SQ SCH (21:34)
[2023-04-22] VITALS (20 sets, daily range): BP systolic 111–143; BP diastolic 60–75; TEMP 97.5–98.3; O2SAT 89–99
[2023-04-22 03:48] LABS: ALANINE AMINOTRANSFERASE 17 U/L (12-78); ALBUMIN 1.9 g/dL (3.4-5.0); ALKALINE PHOSPHATASE 77 U/L (46-116); ASPARTATE AMINOTRANSFERASE 15 U/L (15-37); BILIRUBIN,DIRECT 0.2 mg/dL (0.0-0.2); BILIRUBIN,TOTAL 0.4 mg/dL (0.2-1.0); CALCIUM, SERUM 9.6 mg/dL (8.5-10.1); CARBON DIOXIDE 28 mmol/L (21-32); CHLORIDE 110 mmol/L (98-107); CREATININE 0.9 mg/dL (0.6-1.3); GLUCOSE 160 mg/dL (74-106); MAGNESIUM 2.6 mg/dL (1.8-2.4); POTASSIUM 3.6 mmol/L (3.5-5.1); SODIUM SERUM 145 mmol/L (136-145); TOTAL PROTEIN, SERUM 7.9 g/dL (6.4-8.2); UREA NITROGEN, BLOOD 44 mg/dL (7-18)
[2023-04-22] MEDS ORDERED: TPN BAG #3 IV SCH ×4 (06:51)
[2023-04-22] MEDS: DOLUTEGRAVIR SODIUM 50 MG GT SCH (09:00)
[2023-04-22] MEDS: FINASTERIDE (5 MG) 5 MG TABLET GT SCH (09:00)
[2023-04-22] MEDS: ASPIRIN 81 MG TAB.CHEW GT SCH (09:00)
[2023-04-22] MEDS: AMLODIPINE BESYLATE 10 MG TABLET GT SCH (09:00)
[2023-04-22] MEDS: DOCUSATE SODIUM LIQ 100 MG/10 ML UDC GT SCH (09:00)
[2023-04-22] MEDS: LOSARTAN POTASSIUM 50 MG TABLET GT SCH (09:00)
[2023-04-22] MEDS: NYSTATIN (PYXIS) 500,000 UNIT/5 ML ORAL.SUSP PO SCH ×3 (09:00→17:00)
[2023-04-22] MEDS: FUROSEMIDE 40 MG/4 ML VIAL IV SCH ×2 (09:17→17:06)
[2023-04-22] MEDS: Z GUARD REMEDY 4 OZ OINT TP SCH ×2 (09:24→21:08)
[2023-04-22] MEDS: CIPROFLOXACIN HCL 0.3% 5 ML BOTTLE LEFTEYE SCH ×2 (09:25→17:07)
[2023-04-22] MEDS ORDERED: Sodium Phosphate 15 MMOL in IV NS 0.9% 245 ML IV SCH (13:30)
[2023-04-22] MEDS ORDERED: DEXTROSE 50%-WATER 50 ML DISP.SYRIN IV PRN (14:00)
[2023-04-22] MEDS: FAT EMULSION 20% 500 ML in PREMIX 1 EA IV SCH (15:28)
[2023-04-22] MEDS: DARUNAVIR GT SCH (17:07)
[2023-04-22] MEDS: COBICISTAT GT SCH (17:07)
[2023-04-22] MEDS: INSULIN REGULAR, HUMAN 100 UNIT/ML 3 ML VIAL SQ PRN (17:59)
[2023-04-22] MEDS: BLOOD SUGAR DIAGNOSTIC 1 EACH STRIP IN SCH (18:00)
[2023-04-22] MEDS: ATORVASTATIN 40 MG TABLET GT SCH (21:03)
[2023-04-22] MEDS: TAMSULOSIN 0.4 MG CAP.SR.24H GT SCH (21:03)
[2023-04-22] MEDS: ENOXAPARIN SODIUM 40 MG/0.4 ML DISP.SYRIN SQ SCH (21:06)
[2023-04-23] VITALS (7 sets, daily range): BP systolic 120–139; BP diastolic 69–74; TEMP 97.5–99.5; O2SAT 93–100
[2023-04-23] MEDS ORDERED: TPN BAG #4 IV SCH ×7 (00:01)
[2023-04-23] MEDS: BLOOD SUGAR DIAGNOSTIC 1 EACH STRIP IN SCH ×4 (00:12→17:42)
[2023-04-23] MEDS: INSULIN REGULAR, HUMAN 100 UNIT/ML 3 ML VIAL SQ PRN ×3 (00:16→12:52)
[2023-04-23 07:19] LABS: CALCIUM, SERUM 9.4 mg/dL (8.5-10.1); CREATININE 0.8 mg/dL (0.6-1.3); MAGNESIUM 2.2 mg/dL (1.8-2.4); PHOSPHORUS 2.2 mg/dL (2.5-4.9); POTASSIUM 3.1 mmol/L (3.5-5.1)
[2023-04-23] MEDS: LOSARTAN POTASSIUM 50 MG TABLET GT SCH (08:43)
[2023-04-23] MEDS: ASPIRIN 81 MG TAB.CHEW GT SCH (08:43)
[2023-04-23] MEDS: DOCUSATE SODIUM LIQ 100 MG/10 ML UDC GT SCH (08:43)
[2023-04-23] MEDS: NYSTATIN (PYXIS) 500,000 UNIT/5 ML ORAL.SUSP PO SCH ×3 (08:44→16:31)
[2023-04-23] MEDS: DOLUTEGRAVIR SODIUM 50 MG GT SCH (08:44)
[2023-04-23] MEDS: FINASTERIDE (5 MG) 5 MG TABLET GT SCH (08:44)
[2023-04-23] MEDS: AMLODIPINE BESYLATE 10 MG TABLET GT SCH (08:44)
[2023-04-23] MEDS: FUROSEMIDE 40 MG/4 ML VIAL IV SCH ×2 (08:46→17:04)
[2023-04-23] MEDS: Z GUARD REMEDY 4 OZ OINT TP SCH ×2 (08:48→21:22)
[2023-04-23] MEDS: CIPROFLOXACIN HCL 0.3% 5 ML BOTTLE LEFTEYE SCH (08:48)
[2023-04-23 11:20] LABS: BASOPHILS % (AUTO) 0.3 % (0.0-2.0); EOSINOPHILS # (AUTO) 0.1 K/uL (0.0-0.7); EOSINOPHILS % (AUTO) 0.9 % (0.0-6.0); HEMATOCRIT 29 % (39-51); HEMOGLOBIN 8.8 g/dL (13.5-17.5); LYMPHOCYTES # (AUTO) 2.9 K/uL (0.8-4.8); MEAN CORPUSCULAR HEMOGLOBIN 28 PG (26.0-33.0); MEAN CORPUSCULAR HGB CONC 31 g/dl (31.0-36.0); MEAN CORPUSCULAR VOLUME 90 fL (80-96); MONOCYTES # (AUTO) 0.7 K/uL (0.1-1.30); MONOCYTES % (AUTO) 5.9 % (2.0-12.0); NEUTROPHILS # (AUTO) 7.5 K/uL (1.8-8.9); NEUTROPHILS % (AUTO) 66.9 % (43.0-81.0); PLATELET COUNT (AUTO) 472 K/uL (150-450); RED BLOOD CELL COUNT(AUTO) 3.17 MIL/uL (4.5-6.0); RED CELL DISTRIBUTION WIDTH 18.3 % (11.5-15.0); WHITE BLOOD COUNT (AUTO) 11.2 K/uL (4.3-11.0)
[2023-04-23 12:04] LABS: INR 1.08 (0.91-1.10); PROTHROMBIN TIME 11.4 SECS (9.2-11.1)
[2023-04-23] MEDS: POTASSIUM PHOSPHATE MM 7.5 MMOL in IV NS 0.9% 100 ML IV SCH ×2 (13:48→16:48)
[2023-04-23] MEDS ORDERED: TPN BAG #5 IV SCH ×4 (16:51)
[2023-04-23] MEDS: COBICISTAT GT SCH (17:04)
[2023-04-23] MEDS: DARUNAVIR GT SCH (17:04)
[2023-04-23] MEDS ORDERED: LIDOCAINE 1% INJ 50 ML MDV IJ ONE (18:59)
[2023-04-23] MEDS ORDERED: ETOMIDATE 2 MG/ML VIAL ONE (19:00)
[2023-04-23] MEDS: POTASSIUM CL. PREMIX PERIPHER. 50 ML IV SCH ×2 (21:20→21:24)
[2023-04-23] MEDS: TAMSULOSIN 0.4 MG CAP.SR.24H GT SCH (21:22)
[2023-04-23] MEDS: ATORVASTATIN 40 MG TABLET GT SCH (21:22)
[2023-04-23] MEDS: ENOXAPARIN SODIUM 40 MG/0.4 ML DISP.SYRIN SQ SCH (21:25)
[2023-04-24] VITALS: BP 132/75; TEMP 98.4; O2SAT 96
[2023-04-24] MEDS: INSULIN REGULAR, HUMAN 100 UNIT/ML 3 ML VIAL SQ PRN ×2 (00:07→06:53)
[2023-04-24 04:00] VITALS: BP 131/93; TEMP 98.4; O2SAT 96
[2023-04-24] MEDS: BLOOD SUGAR DIAGNOSTIC 1 EACH STRIP IN SCH ×4 (06:56→17:59)
[2023-04-24] MEDS ORDERED: TPN BAG #6 IV SCH ×4 (07:19)
[2023-04-24 07:32] LABS: BASOPHILS % (AUTO) 0.2 % (0.0-2.0); EOSINOPHILS # (AUTO) 0.1 K/uL (0.0-0.7); EOSINOPHILS % (AUTO) 0.8 % (0.0-6.0); HEMATOCRIT 26 % (39-51); HEMOGLOBIN 8.2 g/dL (13.5-17.5); LYMPHOCYTES # (AUTO) 2.7 K/uL (0.8-4.8); MEAN CORPUSCULAR HEMOGLOBIN 28 PG (26.0-33.0); MEAN CORPUSCULAR HGB CONC 31 g/dl (31.0-36.0); MEAN CORPUSCULAR VOLUME 89 fL (80-96); MONOCYTES # (AUTO) 0.7 K/uL (0.1-1.30); MONOCYTES % (AUTO) 6.4 % (2.0-12.0); NEUTROPHILS % (AUTO) 66.6 % (43.0-81.0); PLATELET COUNT (AUTO) 446 K/uL (150-450); RED BLOOD CELL COUNT(AUTO) 2.94 MIL/uL (4.5-6.0); RED CELL DISTRIBUTION WIDTH 18.2 % (11.5-15.0); WHITE BLOOD COUNT (AUTO) 10.5 K/uL (4.3-11.0)
[2023-04-24 07:43] LABS: CALCIUM, SERUM 9.6 mg/dL (8.5-10.1); CREATININE 0.8 mg/dL (0.6-1.3); MAGNESIUM 2.2 mg/dL (1.8-2.4); PHOSPHORUS 2.3 mg/dL (2.5-4.9); POTASSIUM 3.1 mmol/L (3.5-5.1)
[2023-04-24 08:00] VITALS: BP 128/79; TEMP 98; O2SAT 92
[2023-04-24] MEDS: POTASSIUM PHOSPHATE MM 7.5 MMOL in IV NS 0.9% 100 ML IV SCH ×2 (09:34→11:24)
[2023-04-24] MEDS: FUROSEMIDE 40 MG/4 ML VIAL IV SCH ×2 (09:38→16:54)
[2023-04-24] MEDS: FINASTERIDE (5 MG) 5 MG TABLET GT SCH (09:38)
[2023-04-24] MEDS: ASPIRIN 81 MG TAB.CHEW GT SCH (09:38)
[2023-04-24] MEDS: DOCUSATE SODIUM LIQ 100 MG/10 ML UDC GT SCH (09:38)
[2023-04-24] MEDS: NYSTATIN (PYXIS) 500,000 UNIT/5 ML ORAL.SUSP PO SCH (09:38)
[2023-04-24] MEDS: Z GUARD REMEDY 4 OZ OINT TP SCH ×2 (09:39→22:24)
[2023-04-24] MEDS: LOSARTAN POTASSIUM 50 MG TABLET GT SCH (09:42)
[2023-04-24] MEDS: AMLODIPINE BESYLATE 10 MG TABLET GT SCH (09:42)
[2023-04-24] MEDS: DOLUTEGRAVIR SODIUM 50 MG GT SCH (09:43)
[2023-04-24 12:00] VITALS: BP 135/81; TEMP 98.1; O2SAT 99
[2023-04-24] MEDS: FAT EMULSION 20% 500 ML in PREMIX 1 EA IV SCH (15:07)
[2023-04-24] MEDS: POTASSIUM CL. PREMIX PERIPHER. 50 ML IV SCH ×2 (15:09→16:37)
[2023-04-24 16:00] VITALS: BP 135/81; TEMP 98.1; O2SAT 99
[2023-04-24] MEDS: COBICISTAT GT SCH (17:01)
[2023-04-24] MEDS: DARUNAVIR GT SCH (17:01)
[2023-04-24] MEDS ORDERED: TPN BAG #7 IV SCH ×2 (19:59)
[2023-04-24 20:00] VITALS: BP 139/79; TEMP 98.4; O2SAT 97
[2023-04-24] MEDS ORDERED: POTASSIUM CL. PREMIX PERIPHER. 50 ML IV SCH (21:00)
[2023-04-24] MEDS: TAMSULOSIN 0.4 MG CAP.SR.24H GT SCH (22:22)
[2023-04-24] MEDS: ATORVASTATIN 40 MG TABLET GT SCH (22:22)
[2023-04-24] MEDS: ENOXAPARIN SODIUM 40 MG/0.4 ML DISP.SYRIN SQ SCH (22:23)
[2023-04-25] VITALS: BP 147/75; TEMP 98.8; O2SAT 95
[2023-04-25] MEDS: BLOOD SUGAR DIAGNOSTIC 1 EACH STRIP IN SCH ×5 (00:39→23:36)
[2023-04-25] MEDS: INSULIN REGULAR, HUMAN 100 UNIT/ML 3 ML VIAL SQ PRN ×4 (00:51→23:32)
[2023-04-25 04:00] VITALS: BP 129/73; TEMP 98.9; O2SAT 95
[2023-04-25 07:41] LABS: BASOPHILS % (AUTO) 0.2 % (0.0-2.0); EOSINOPHILS # (AUTO) 0.1 K/uL (0.0-0.7); EOSINOPHILS % (AUTO) 1.2 % (0.0-6.0); HEMATOCRIT 27 % (39-51); HEMOGLOBIN 8.5 g/dL (13.5-17.5); LYMPHOCYTES # (AUTO) 2.9 K/uL (0.8-4.8); LYMPHOCYTES % (AUTO) 22.7 % (20.0-44.0); MEAN CORPUSCULAR HEMOGLOBIN 28 PG (26.0-33.0); MEAN CORPUSCULAR HGB CONC 32 g/dl (31.0-36.0); MEAN CORPUSCULAR VOLUME 87 fL (80-96); MONOCYTES # (AUTO) 0.8 K/uL (0.1-1.30); MONOCYTES % (AUTO) 6.1 % (2.0-12.0); NEUTROPHILS # (AUTO) 8.8 K/uL (1.8-8.9); NEUTROPHILS % (AUTO) 69.8 % (43.0-81.0); PLATELET COUNT (AUTO) 386 K/uL (150-450); RED BLOOD CELL COUNT(AUTO) 3.06 MIL/uL (4.5-6.0); RED CELL DISTRIBUTION WIDTH 18.5 % (11.5-15.0); WHITE BLOOD COUNT (AUTO) 12.6 K/uL (4.3-11.0)
[2023-04-25 08:34] LABS: CALCIUM, SERUM 9.4 mg/dL (8.5-10.1); CARBON DIOXIDE 21 mmol/L (21-32); CHLORIDE 104 mmol/L (98-107); GLUCOSE 198 mg/dL (74-106); PHOSPHORUS 2.3 mg/dL (2.5-4.9); POTASSIUM 2.9 mmol/L (3.5-5.1); SODIUM SERUM 138 mmol/L (136-145); UREA NITROGEN, BLOOD 35 mg/dL (7-18)
[2023-04-25] MEDS: DOLUTEGRAVIR SODIUM 50 MG GT SCH (08:50)
[2023-04-25] MEDS: FINASTERIDE (5 MG) 5 MG TABLET GT SCH (08:50)
[2023-04-25] MEDS: DOCUSATE SODIUM LIQ 100 MG/10 ML UDC GT SCH (08:50)
[2023-04-25] MEDS: FUROSEMIDE 40 MG/4 ML VIAL IV SCH ×2 (08:50→16:32)
[2023-04-25] MEDS: LOSARTAN POTASSIUM 50 MG TABLET GT SCH (08:50)
[2023-04-25] MEDS: ASPIRIN 81 MG TAB.CHEW GT SCH (08:50)
[2023-04-25] MEDS: AMLODIPINE BESYLATE 10 MG TABLET GT SCH (08:51)
[2023-04-25] MEDS: Z GUARD REMEDY 4 OZ OINT TP SCH ×2 (09:00→22:13)
[2023-04-25] MEDS ORDERED: DEXTROSE 10% IN WATER 250 ML IV PRN (09:00)
[2023-04-25] MEDS: POTASSIUM CL. PREMIX PERIPHER. 50 ML IV SCH ×4 (10:46→14:03)
[2023-04-25 10:53] VITALS: BP 133/92; TEMP 98.9; O2SAT 93
[2023-04-25 12:00] VITALS: BP 121/69; TEMP 98.9
[2023-04-25] MEDS: POTASSIUM PHOSPHATE MM 7.5 MMOL in IV NS 0.9% 100 ML IV SCH ×2 (14:06→16:25)
[2023-04-25 16:00] VITALS: BP 131/72; TEMP 98.6; O2SAT 98
[2023-04-25] MEDS: DARUNAVIR GT SCH (16:53)
[2023-04-25] MEDS: COBICISTAT GT SCH (16:53)
[2023-04-25] MEDS: GLUCERNA 1.2 1,000 ML BOTTLE NG PRN (17:48)
[2023-04-25 20:00] VITALS: BP 98/58; TEMP 99.8; O2SAT 95
[2023-04-25] MEDS: TAMSULOSIN 0.4 MG CAP.SR.24H GT SCH (22:12)
[2023-04-25] MEDS: ATORVASTATIN 40 MG TABLET GT SCH (22:12)
[2023-04-25] MEDS: ENOXAPARIN SODIUM 40 MG/0.4 ML DISP.SYRIN SQ SCH (22:13)
[2023-04-26] VITALS: BP 101/55; TEMP 97.8; O2SAT 96
[2023-04-26 04:00] VITALS: BP 106/69; TEMP 98.3; O2SAT 98
[2023-04-26] MEDS: INSULIN REGULAR, HUMAN 100 UNIT/ML 3 ML VIAL SQ PRN ×3 (05:39→23:41)
[2023-04-26] MEDS: BLOOD SUGAR DIAGNOSTIC 1 EACH STRIP IN SCH ×4 (05:40→23:42)
[2023-04-26 07:55] LABS: CALCIUM, SERUM 9.3 mg/dL (8.5-10.1); CARBON DIOXIDE 23 mmol/L (21-32); CHLORIDE 106 mmol/L (98-107); CREATININE 1.2 mg/dL (0.6-1.3); GLUCOSE 158 mg/dL (74-106); MAGNESIUM 2.3 mg/dL (1.8-2.4); PHOSPHORUS 4.7 mg/dL (2.5-4.9); POTASSIUM 3.2 mmol/L (3.5-5.1); SODIUM SERUM 140 mmol/L (136-145); UREA NITROGEN, BLOOD 43 mg/dL (7-18)
[2023-04-26 08:00] VITALS: BP 108/70; TEMP 98.3; O2SAT 98
[2023-04-26] MEDS: ASPIRIN 81 MG TAB.CHEW GT SCH (08:34)
[2023-04-26] MEDS: DOCUSATE SODIUM LIQ 100 MG/10 ML UDC GT SCH (08:34)
[2023-04-26] MEDS: FUROSEMIDE 40 MG/4 ML VIAL IV SCH ×2 (08:37→16:14)
[2023-04-26] MEDS: FINASTERIDE (5 MG) 5 MG TABLET GT SCH (08:38)
[2023-04-26] MEDS: DOLUTEGRAVIR SODIUM 50 MG GT SCH (08:40)
[2023-04-26] MEDS: AMLODIPINE BESYLATE 10 MG TABLET GT SCH (08:40)
[2023-04-26] MEDS: Z GUARD REMEDY 4 OZ OINT TP SCH ×2 (08:41→21:06)
[2023-04-26] MEDS: LOSARTAN POTASSIUM 50 MG TABLET GT SCH (08:41)
[2023-04-26] MEDS ORDERED: POTASSIUM CHLORIDE 20 MEQ POWDER PACKET NG SCH (10:00)
[2023-04-26 12:00] VITALS: BP 111/69; TEMP 97.2; O2SAT 98
[2023-04-26 14:07] LABS: APPEARANCE,URINE SLIGHTLY CLOUDY (CLEAR); BILIRUBIN,URINE NEGATIVE (NEGATIVE); BLOOD, URINE 2+ Ery/uL (NEGATIVE); COLOR,URINE YELLOW (YELLOW); KETONES,URINE NEGATIVE (NEGATIVE); LEUKOCYTE ESTERASE ,URINE NEGATIVE (NEGATIVE); NITRITE, URINE NEGATIVE (NEGATIVE); PH,URINE 5.5 (5.0-8.0); PROTEIN,URINE 1+ mg/dl (NEGATIVE); UGLUCOSE NEGATIVE (NEGATIVE); UROBILINOGEN,URINE 0.2 EU/dL (0.2)
[2023-04-26] MEDS: GLUCERNA 1.2 1,000 ML BOTTLE NG PRN (14:52)
[2023-04-26 14:56] LABS: CREATININE, URINE 61.8 MG/DL (30.0-125.0); URINE TOTAL PROTEIN 100.9 mg/dL (0-11.9)
[2023-04-26 15:55] LABS: ADD URINE CULTURE NO; BACTERIA,URINE None seen /HPF (None Seen); COARSE GRANULAR CASTS,URINE Few /LPF (None Seen); MUCUS,URINE Many /LPF (None Seen); RBC,URINE 21-50 /HPF (0-2); WBC,URINE 0-2 /HPF (0-3)
[2023-04-26 16:00] VITALS: BP 122/70; TEMP 98.8; O2SAT 95
[2023-04-26] MEDS: COBICISTAT GT SCH (17:24)
[2023-04-26] MEDS: DARUNAVIR GT SCH (17:24)
[2023-04-26 18:33] LABS: EOSINOPHIL,URINE None Seen
[2023-04-26] MEDS: ATORVASTATIN 40 MG TABLET GT SCH (21:04)
[2023-04-26] MEDS: TAMSULOSIN 0.4 MG CAP.SR.24H GT SCH (21:04)
[2023-04-26] MEDS: ENOXAPARIN SODIUM 40 MG/0.4 ML DISP.SYRIN SQ SCH (21:05)
[2023-04-26 21:37] VITALS: BP 104/64; TEMP 97.3; O2SAT 97
[2023-04-27] VITALS: BP 117/66; TEMP 97.9; O2SAT 98
[2023-04-27 04:00] VITALS: BP 122/71; TEMP 97.7; O2SAT 97
[2023-04-27] MEDS: INSULIN REGULAR, HUMAN 100 UNIT/ML 3 ML VIAL SQ PRN ×2 (05:36→12:31)
[2023-04-27] MEDS: BLOOD SUGAR DIAGNOSTIC 1 EACH STRIP IN SCH ×3 (05:37→18:00)
[2023-04-27 07:00] LABS: BASOPHILS % (AUTO) 0.3 % (0.0-2.0); EOSINOPHILS # (AUTO) 0.2 K/uL (0.0-0.7); HEMATOCRIT 28 % (39-51); LYMPHOCYTES # (AUTO) 2.3 K/uL (0.8-4.8); LYMPHOCYTES % (AUTO) 23.2 % (20.0-44.0); MEAN CORPUSCULAR HEMOGLOBIN 28 PG (26.0-33.0); MEAN CORPUSCULAR HGB CONC 32 g/dl (31.0-36.0); MEAN CORPUSCULAR VOLUME 87 fL (80-96); MONOCYTES % (AUTO) 9.9 % (2.0-12.0); NEUTROPHILS # (AUTO) 6.4 K/uL (1.8-8.9); NEUTROPHILS % (AUTO) 64.6 % (43.0-81.0); PLATELET COUNT (AUTO) 355 K/uL (150-450); RED BLOOD CELL COUNT(AUTO) 3.22 MIL/uL (4.5-6.0); RED CELL DISTRIBUTION WIDTH 18.6 % (11.5-15.0); WHITE BLOOD COUNT (AUTO) 9.9 K/uL (4.3-11.0)
[2023-04-27 07:45] LABS: CALCIUM, SERUM 9.9 mg/dL (8.5-10.1); CREATININE 1.2 mg/dL (0.6-1.3); MAGNESIUM 2.7 mg/dL (1.8-2.4); POTASSIUM 3.9 mmol/L (3.5-5.1)
[2023-04-27 08:00] VITALS: BP 105/66; TEMP 97.9; O2SAT 97
[2023-04-27] MEDS: AMLODIPINE BESYLATE 10 MG TABLET GT SCH (08:38)
[2023-04-27] MEDS: ASPIRIN 81 MG TAB.CHEW GT SCH (08:41)
[2023-04-27] MEDS: DOCUSATE SODIUM LIQ 100 MG/10 ML UDC GT SCH (08:41)
[2023-04-27] MEDS: FUROSEMIDE 40 MG/4 ML VIAL IV SCH ×2 (08:42→16:25)
[2023-04-27] MEDS: FINASTERIDE (5 MG) 5 MG TABLET GT SCH (08:42)
[2023-04-27] MEDS: Z GUARD REMEDY 4 OZ OINT TP SCH ×2 (08:43→21:07)
[2023-04-27] MEDS: DOLUTEGRAVIR SODIUM 50 MG GT SCH (08:44)
[2023-04-27 12:00] VITALS: BP 116/68; TEMP 97.7; O2SAT 97
[2023-04-27 16:00] VITALS: BP 116/69; TEMP 97.7; O2SAT 97
[2023-04-27] MEDS: COBICISTAT GT SCH (17:45)
[2023-04-27] MEDS: DARUNAVIR GT SCH (17:45)
[2023-04-27 20:00] VITALS: BP 127/57; TEMP 98; O2SAT 96
[2023-04-27] MEDS: TAMSULOSIN 0.4 MG CAP.SR.24H GT SCH (21:05)
[2023-04-27] MEDS: ATORVASTATIN 40 MG TABLET GT SCH (21:05)
[2023-04-27] MEDS: ENOXAPARIN SODIUM 40 MG/0.4 ML DISP.SYRIN SQ SCH (21:06)
[2023-04-28] VITALS: BP 114/72; TEMP 98; O2SAT 99
[2023-04-28] MEDS: BLOOD SUGAR DIAGNOSTIC 1 EACH STRIP IN SCH ×4 (00:25→17:17)
[2023-04-28] MEDS: INSULIN REGULAR, HUMAN 100 UNIT/ML 3 ML VIAL SQ PRN ×4 (00:25→17:17)
[2023-04-28 04:00] VITALS: BP 116/70; TEMP 98.2; O2SAT 98
[2023-04-28 07:12] LABS: BASOPHILS % (AUTO) 0.3 % (0.0-2.0); EOSINOPHILS # (AUTO) 0.3 K/uL (0.0-0.7); HEMATOCRIT 29 % (39-51); HEMOGLOBIN 9.1 g/dL (13.5-17.5); LYMPHOCYTES # (AUTO) 2.2 K/uL (0.8-4.8); LYMPHOCYTES % (AUTO) 21.5 % (20.0-44.0); MEAN CORPUSCULAR HEMOGLOBIN 28 PG (26.0-33.0); MEAN CORPUSCULAR HGB CONC 31 g/dl (31.0-36.0); MEAN CORPUSCULAR VOLUME 88 fL (80-96); MONOCYTES # (AUTO) 1.1 K/uL (0.1-1.30); MONOCYTES % (AUTO) 10.4 % (2.0-12.0); NEUTROPHILS # (AUTO) 6.6 K/uL (1.8-8.9); NEUTROPHILS % (AUTO) 64.8 % (43.0-81.0); PLATELET COUNT (AUTO) 368 K/uL (150-450); RED BLOOD CELL COUNT(AUTO) 3.29 MIL/uL (4.5-6.0); WHITE BLOOD COUNT (AUTO) 10.2 K/uL (4.3-11.0)
[2023-04-28 07:38] LABS: CALCIUM, SERUM 10.3 mg/dL (8.5-10.1); CREATININE 1.3 mg/dL (0.6-1.3); MAGNESIUM 2.7 mg/dL (1.8-2.4); PHOSPHORUS 4.2 mg/dL (2.5-4.9); POTASSIUM 4.3 mmol/L (3.5-5.1)
[2023-04-28 08:00] VITALS: BP 105/66; TEMP 97.9; O2SAT 97
[2023-04-28] MEDS: ASPIRIN 81 MG TAB.CHEW GT SCH (08:51)
[2023-04-28] MEDS: DOCUSATE SODIUM LIQ 100 MG/10 ML UDC GT SCH (08:51)
[2023-04-28] MEDS: FUROSEMIDE 40 MG/4 ML VIAL IV SCH ×2 (08:51→16:09)
[2023-04-28] MEDS: FINASTERIDE (5 MG) 5 MG TABLET GT SCH (08:51)
[2023-04-28] MEDS: AMLODIPINE BESYLATE 10 MG TABLET GT SCH (08:52)
[2023-04-28] MEDS: Z GUARD REMEDY 4 OZ OINT TP SCH ×2 (08:56→21:27)
[2023-04-28] MEDS: DOLUTEGRAVIR SODIUM 50 MG GT SCH (08:57)
[2023-04-28 12:00] VITALS: BP 111/68; TEMP 97.7; O2SAT 97
[2023-04-28 16:00] VITALS: BP 120/72; TEMP 98; O2SAT 97
[2023-04-28] MEDS: DARUNAVIR GT SCH (17:17)
[2023-04-28] MEDS: COBICISTAT GT SCH (17:17)
[2023-04-28] MEDS: GLUCERNA 1.2 1,000 ML BOTTLE NG PRN (19:53)
[2023-04-28 20:00] VITALS: BP 118/72; TEMP 97.5; O2SAT 98
[2023-04-28] MEDS: TAMSULOSIN 0.4 MG CAP.SR.24H GT SCH (21:27)
[2023-04-28] MEDS: ATORVASTATIN 40 MG TABLET GT SCH (21:28)
[2023-04-28] MEDS: ENOXAPARIN SODIUM 40 MG/0.4 ML DISP.SYRIN SQ SCH (22:23)
[2023-04-29] VITALS: BP 118/76; TEMP 97.2; O2SAT 99
[2023-04-29] MEDS: BLOOD SUGAR DIAGNOSTIC 1 EACH STRIP IN SCH ×4 (00:39→17:29)
[2023-04-29] MEDS: INSULIN REGULAR, HUMAN 100 UNIT/ML 3 ML VIAL SQ PRN ×4 (00:59→17:30)
[2023-04-29 04:00] VITALS: BP 120/75; TEMP 98.2; O2SAT 98
[2023-04-29 07:50] LABS: BASOPHILS % (AUTO) 0.3 % (0.0-2.0); EOSINOPHILS # (AUTO) 0.2 K/uL (0.0-0.7); HEMATOCRIT 29 % (39-51); HEMOGLOBIN 9.2 g/dL (13.5-17.5); LYMPHOCYTES # (AUTO) 2.4 K/uL (0.8-4.8); LYMPHOCYTES % (AUTO) 23.3 % (20.0-44.0); MEAN CORPUSCULAR HEMOGLOBIN 28 PG (26.0-33.0); MEAN CORPUSCULAR HGB CONC 31 g/dl (31.0-36.0); MEAN CORPUSCULAR VOLUME 88 fL (80-96); MONOCYTES # (AUTO) 0.9 K/uL (0.1-1.30); MONOCYTES % (AUTO) 8.4 % (2.0-12.0); NEUTROPHILS # (AUTO) 6.7 K/uL (1.8-8.9); PLATELET COUNT (AUTO) 396 K/uL (150-450); RED BLOOD CELL COUNT(AUTO) 3.34 MIL/uL (4.5-6.0); RED CELL DISTRIBUTION WIDTH 18.6 % (11.5-15.0); WHITE BLOOD COUNT (AUTO) 10.2 K/uL (4.3-11.0)
[2023-04-29 08:00] VITALS: BP 108/76; TEMP 99.1; O2SAT 98
[2023-04-29 08:47] LABS: CALCIUM, SERUM 10.3 mg/dL (8.5-10.1); CARBON DIOXIDE 29 mmol/L (21-32); CHLORIDE 108 mmol/L (98-107); CREATININE 1.4 mg/dL (0.6-1.3); GLUCOSE 160 mg/dL (74-106); MAGNESIUM 2.8 mg/dL (1.8-2.4); PHOSPHORUS 4.1 mg/dL (2.5-4.9); POTASSIUM 3.8 mmol/L (3.5-5.1); SODIUM SERUM 148 mmol/L (136-145); UREA NITROGEN, BLOOD 54 mg/dL (7-18)
[2023-04-29] MEDS: AMLODIPINE BESYLATE 10 MG TABLET GT SCH (09:00)
[2023-04-29] MEDS: DOCUSATE SODIUM LIQ 100 MG/10 ML UDC GT SCH (09:12)
[2023-04-29] MEDS: FINASTERIDE (5 MG) 5 MG TABLET GT SCH (09:12)
[2023-04-29] MEDS: ASPIRIN 81 MG TAB.CHEW GT SCH (09:12)
[2023-04-29] MEDS: FUROSEMIDE 40 MG/4 ML VIAL IV SCH ×2 (09:12→16:15)
[2023-04-29] MEDS: DOLUTEGRAVIR SODIUM 50 MG GT SCH (09:16)
[2023-04-29] MEDS: Z GUARD REMEDY 4 OZ OINT TP SCH ×2 (09:16→22:16)
[2023-04-29] MEDS ORDERED: IV D5W 1,000 ML IV ONE (10:00)
[2023-04-29 12:00] VITALS: BP 123/74; TEMP 97.7; O2SAT 98
[2023-04-29] MEDS: THERAHONEY GEL 1.5 OZ TUBE TP SCH (13:12)
[2023-04-29] MEDS: GLUCERNA 1.2 1,000 ML BOTTLE NG PRN (14:46)
[2023-04-29 16:00] VITALS: BP 107/70; TEMP 98; O2SAT 96
[2023-04-29] MEDS: DARUNAVIR GT SCH (17:04)
[2023-04-29] MEDS: COBICISTAT GT SCH (17:04)
[2023-04-29 20:00] VITALS: BP 129/69; TEMP 97.7; O2SAT 97
[2023-04-29] MEDS: ATORVASTATIN 40 MG TABLET GT SCH (22:16)
[2023-04-29] MEDS: TAMSULOSIN 0.4 MG CAP.SR.24H GT SCH (22:16)
[2023-04-29] MEDS: ENOXAPARIN SODIUM 40 MG/0.4 ML DISP.SYRIN SQ SCH (22:20)
[2023-04-30] VITALS: BP 138/70; TEMP 98; O2SAT 100
[2023-04-30] MEDS: INSULIN REGULAR, HUMAN 100 UNIT/ML 3 ML VIAL SQ PRN ×3 (03:27→17:30)
[2023-04-30 04:00] VITALS: BP 138/70; TEMP 98; O2SAT 100
[2023-04-30] MEDS: BLOOD SUGAR DIAGNOSTIC 1 EACH STRIP IN SCH ×4 (06:00→17:29)
[2023-04-30 06:56] LABS: BASOPHILS % (AUTO) 0.3 % (0.0-2.0); EOSINOPHILS # (AUTO) 0.2 K/uL (0.0-0.7); HEMATOCRIT 28 % (39-51); HEMOGLOBIN 8.8 g/dL (13.5-17.5); LYMPHOCYTES % (AUTO) 21.7 % (20.0-44.0); MEAN CORPUSCULAR HEMOGLOBIN 28 PG (26.0-33.0); MEAN CORPUSCULAR HGB CONC 32 g/dl (31.0-36.0); MEAN CORPUSCULAR VOLUME 88 fL (80-96); MONOCYTES # (AUTO) 0.8 K/uL (0.1-1.30); MONOCYTES % (AUTO) 8.5 % (2.0-12.0); NEUTROPHILS # (AUTO) 6.2 K/uL (1.8-8.9); NEUTROPHILS % (AUTO) 67.5 % (43.0-81.0); PLATELET COUNT (AUTO) 329 K/uL (150-450); RED BLOOD CELL COUNT(AUTO) 3.13 MIL/uL (4.5-6.0); RED CELL DISTRIBUTION WIDTH 17.8 % (11.5-15.0); WHITE BLOOD COUNT (AUTO) 9.2 K/uL (4.3-11.0)
[2023-04-30 07:18] LABS: CALCIUM, SERUM 10.2 mg/dL (8.5-10.1); CREATININE 1.2 mg/dL (0.6-1.3); MAGNESIUM 2.8 mg/dL (1.8-2.4); PHOSPHORUS 4.2 mg/dL (2.5-4.9); POTASSIUM 3.5 mmol/L (3.5-5.1)
[2023-04-30] MEDS: FUROSEMIDE 40 MG/4 ML VIAL IV SCH (09:10)
[2023-04-30] MEDS: DOCUSATE SODIUM LIQ 100 MG/10 ML UDC GT SCH (09:10)
[2023-04-30] MEDS: FINASTERIDE (5 MG) 5 MG TABLET GT SCH (09:11)
[2023-04-30] MEDS: ASPIRIN 81 MG TAB.CHEW GT SCH (09:11)
[2023-04-30] MEDS: AMLODIPINE BESYLATE 10 MG TABLET GT SCH (09:11)
[2023-04-30] MEDS: THERAHONEY GEL 1.5 OZ TUBE TP SCH (09:12)
[2023-04-30] MEDS: DOLUTEGRAVIR SODIUM 50 MG GT SCH (09:12)
[2023-04-30] MEDS: Z GUARD REMEDY 4 OZ OINT TP SCH ×2 (09:12→21:33)
[2023-04-30 09:32] VITALS: BP 120/75; TEMP 98.2; O2SAT 98
[2023-04-30 12:02] VITALS: BP 123/74; TEMP 97.7; O2SAT 98
[2023-04-30 16:50] VITALS: BP 124/62; TEMP 98; O2SAT 100
[2023-04-30] MEDS: DARUNAVIR GT SCH (17:29)
[2023-04-30] MEDS: COBICISTAT GT SCH (17:29)
[2023-04-30 20:00] VITALS: BP 135/73; TEMP 97.7; O2SAT 96
[2023-04-30] MEDS: ATORVASTATIN 40 MG TABLET GT SCH (21:46)
[2023-04-30] MEDS: TAMSULOSIN 0.4 MG CAP.SR.24H GT SCH (21:46)
[2023-04-30] MEDS: ENOXAPARIN SODIUM 40 MG/0.4 ML DISP.SYRIN SQ SCH (21:54)
[2023-05-01] VITALS: BP 108/71; TEMP 98.4; O2SAT 98
[2023-05-01] MEDS: BLOOD SUGAR DIAGNOSTIC 1 EACH STRIP IN SCH ×5 (00:03→23:55)
[2023-05-01] MEDS: INSULIN REGULAR, HUMAN 100 UNIT/ML 3 ML VIAL SQ PRN ×4 (00:04→17:04)
[2023-05-01 04:00] VITALS: BP 120/91; TEMP 98.7; O2SAT 98
[2023-05-01 08:00] VITALS: BP 150/76; TEMP 97.7; O2SAT 99
[2023-05-01] MEDS: Z GUARD REMEDY 4 OZ OINT TP SCH ×2 (08:26→21:34)
[2023-05-01] MEDS: FUROSEMIDE 40 MG/4 ML VIAL IV SCH (09:10)
[2023-05-01] MEDS: DOCUSATE SODIUM LIQ 100 MG/10 ML UDC GT SCH (09:10)
[2023-05-01] MEDS: ASPIRIN 81 MG TAB.CHEW GT SCH (09:10)
[2023-05-01] MEDS: FINASTERIDE (5 MG) 5 MG TABLET GT SCH (09:11)
[2023-05-01] MEDS: AMLODIPINE BESYLATE 10 MG TABLET GT SCH (09:11)
[2023-05-01] MEDS: THERAHONEY GEL 1.5 OZ TUBE TP SCH (09:11)
[2023-05-01 12:00] VITALS: BP 127/66; TEMP 98.1; O2SAT 98
[2023-05-01] MEDS: DOLUTEGRAVIR SODIUM 50 MG GT SCH (13:38)
[2023-05-01] MEDS: GLUCERNA 1.2 1,000 ML BOTTLE NG PRN (14:28)
[2023-05-01 16:00] VITALS: BP 142/74; TEMP 97.9; O2SAT 100
[2023-05-01] MEDS: DARUNAVIR GT SCH (17:04)
[2023-05-01] MEDS: COBICISTAT GT SCH (17:04)
[2023-05-01 21:12] VITALS: BP 160/90; TEMP 98.2; O2SAT 99
[2023-05-01] MEDS: TAMSULOSIN 0.4 MG CAP.SR.24H GT SCH (21:34)
[2023-05-01] MEDS: ATORVASTATIN 40 MG TABLET GT SCH (21:34)
[2023-05-01] MEDS: ENOXAPARIN SODIUM 40 MG/0.4 ML DISP.SYRIN SQ SCH (21:35)
[2023-05-02] VITALS: BP 138/80; TEMP 98.6; O2SAT 98
[2023-05-02 04:00] VITALS: BP 138/80; TEMP 99; O2SAT 98
[2023-05-02] MEDS: BLOOD SUGAR DIAGNOSTIC 1 EACH STRIP IN SCH ×3 (05:34→18:34)
[2023-05-02] MEDS: INSULIN REGULAR, HUMAN 100 UNIT/ML 3 ML VIAL SQ PRN ×3 (05:36→18:33)
[2023-05-02] MEDS: ASPIRIN 81 MG TAB.CHEW GT SCH (08:39)
[2023-05-02] MEDS: AMLODIPINE BESYLATE 10 MG TABLET GT SCH (08:39)
[2023-05-02] MEDS: FUROSEMIDE 40 MG/4 ML VIAL IV SCH (08:39)
[2023-05-02] MEDS: FINASTERIDE (5 MG) 5 MG TABLET GT SCH (08:40)
[2023-05-02] MEDS: DOCUSATE SODIUM LIQ 100 MG/10 ML UDC GT SCH (08:40)
[2023-05-02] MEDS: DOLUTEGRAVIR SODIUM 50 MG GT SCH (08:40)
[2023-05-02] MEDS: Z GUARD REMEDY 4 OZ OINT TP SCH ×2 (08:41→20:47)
[2023-05-02] MEDS: THERAHONEY GEL 1.5 OZ TUBE TP SCH (08:42)
[2023-05-02 11:59] VITALS: BP 107/60; TEMP 97.7; O2SAT 98
[2023-05-02] MEDS: GLUCERNA 1.2 1,000 ML BOTTLE NG PRN (12:05)
[2023-05-02] MEDS: DARUNAVIR GT SCH (18:32)
[2023-05-02] MEDS: COBICISTAT GT SCH (18:32)
[2023-05-02 20:00] VITALS: BP 106/67; TEMP 97.9; O2SAT 94
[2023-05-02] MEDS: ATORVASTATIN 40 MG TABLET GT SCH (21:42)
[2023-05-02] MEDS: TAMSULOSIN 0.4 MG CAP.SR.24H GT SCH (21:42)
[2023-05-02] MEDS: ENOXAPARIN SODIUM 40 MG/0.4 ML DISP.SYRIN SQ SCH (21:43)
[2023-05-03 00:08] VITALS: BP 108/68; TEMP 98.9; O2SAT 95
[2023-05-03] MEDS: BLOOD SUGAR DIAGNOSTIC 1 EACH STRIP IN SCH ×4 (00:10→17:30)
[2023-05-03] MEDS: INSULIN REGULAR, HUMAN 100 UNIT/ML 3 ML VIAL SQ PRN ×3 (00:15→17:37)
[2023-05-03] MEDS: GLUCERNA 1.2 1,000 ML BOTTLE NG PRN (04:34)
[2023-05-03 05:57] VITALS: BP 105/71; TEMP 97.8; O2SAT 94
[2023-05-03 08:00] VITALS: BP 115/72; TEMP 97.7; O2SAT 97
[2023-05-03] MEDS: DOLUTEGRAVIR SODIUM 50 MG GT SCH (10:46)
[2023-05-03] MEDS: DOCUSATE SODIUM LIQ 100 MG/10 ML UDC GT SCH (10:47)
[2023-05-03] MEDS: ASPIRIN 81 MG TAB.CHEW GT SCH (10:47)
[2023-05-03] MEDS: FINASTERIDE (5 MG) 5 MG TABLET GT SCH (10:48)
[2023-05-03] MEDS: AMLODIPINE BESYLATE 10 MG TABLET GT SCH (10:48)
[2023-05-03] MEDS: FUROSEMIDE 40 MG/4 ML VIAL IV SCH (10:48)
[2023-05-03] MEDS: Z GUARD REMEDY 4 OZ OINT TP SCH ×2 (11:03→20:42)
[2023-05-03] MEDS: THERAHONEY GEL 1.5 OZ TUBE TP SCH (11:04)
[2023-05-03 12:00] VITALS: BP 113/66; TEMP 98.1; O2SAT 98
[2023-05-03 16:00] VITALS: BP 111/70; TEMP 96.8; O2SAT 98
[2023-05-03] MEDS: DARUNAVIR GT SCH (17:36)
[2023-05-03] MEDS: COBICISTAT GT SCH (17:36)
[2023-05-03 20:00] VITALS: BP 160/90; TEMP 97.6; O2SAT 100
[2023-05-03] MEDS: ATORVASTATIN 40 MG TABLET GT SCH (21:40)
[2023-05-03] MEDS: TAMSULOSIN 0.4 MG CAP.SR.24H GT SCH (21:40)
[2023-05-03] MEDS: ENOXAPARIN SODIUM 40 MG/0.4 ML DISP.SYRIN SQ SCH (21:41)
[2023-05-04] VITALS: BP 137/75; TEMP 97.7; O2SAT 100
[2023-05-04] MEDS: INSULIN REGULAR, HUMAN 100 UNIT/ML 3 ML VIAL SQ PRN ×5 (00:19→23:25)
[2023-05-04] MEDS: BLOOD SUGAR DIAGNOSTIC 1 EACH STRIP IN SCH ×5 (00:19→23:22)
[2023-05-04] MEDS: GLUCERNA 1.2 1,000 ML BOTTLE NG PRN ×2 (00:28→18:17)
[2023-05-04 04:00] VITALS: BP 130/67; TEMP 98.2; O2SAT 99
[2023-05-04 07:57] LABS: BASOPHILS % (AUTO) 0.1 % (0.0-2.0); EOSINOPHILS # (AUTO) 0.1 K/uL (0.0-0.7); EOSINOPHILS % (AUTO) 0.7 % (0.0-6.0); HEMATOCRIT 27 % (39-51); HEMOGLOBIN 8.5 g/dL (13.5-17.5); LYMPHOCYTES # (AUTO) 2.4 K/uL (0.8-4.8); MEAN CORPUSCULAR HEMOGLOBIN 27 PG (26.0-33.0); MEAN CORPUSCULAR HGB CONC 31 g/dl (31.0-36.0); MEAN CORPUSCULAR VOLUME 88 fL (80-96); MONOCYTES # (AUTO) 0.7 K/uL (0.1-1.30); NEUTROPHILS # (AUTO) 10.4 K/uL (1.8-8.9); NEUTROPHILS % (AUTO) 76.2 % (43.0-81.0); PLATELET COUNT (AUTO) 333 K/uL (150-450); RED CELL DISTRIBUTION WIDTH 18.5 % (11.5-15.0); WHITE BLOOD COUNT (AUTO) 13.6 K/uL (4.3-11.0)
[2023-05-04 08:00] VITALS: BP 109/70; TEMP 98; O2SAT 99
[2023-05-04] MEDS: FINASTERIDE (5 MG) 5 MG TABLET GT SCH (08:51)
[2023-05-04] MEDS: ASPIRIN 81 MG TAB.CHEW GT SCH (08:51)
[2023-05-04] MEDS: FUROSEMIDE 40 MG/4 ML VIAL IV SCH (08:51)
[2023-05-04] MEDS: DOCUSATE SODIUM LIQ 100 MG/10 ML UDC GT SCH (08:51)
[2023-05-04] MEDS: Z GUARD REMEDY 4 OZ OINT TP SCH ×2 (08:52→21:38)
[2023-05-04] MEDS: THERAHONEY GEL 1.5 OZ TUBE TP SCH (08:52)
[2023-05-04] MEDS: DOLUTEGRAVIR SODIUM 50 MG GT SCH (08:53)
[2023-05-04] MEDS: AMLODIPINE BESYLATE 10 MG TABLET GT SCH (08:53)
[2023-05-04 08:59] LABS: ALBUMIN 1.9 g/dL (3.4-5.0); BILIRUBIN,TOTAL 0.4 mg/dL (0.2-1.0); CALCIUM, SERUM 9.8 mg/dL (8.5-10.1); CREATININE 1.3 mg/dL (0.6-1.3); MAGNESIUM 2.6 mg/dL (1.8-2.4); POTASSIUM 3.2 mmol/L (3.5-5.1); TOTAL PROTEIN, SERUM 7.6 g/dL (6.4-8.2)
[2023-05-04 12:00] VITALS: BP 140/77; TEMP 97.6; O2SAT 99
[2023-05-04 16:00] VITALS: BP 142/80; TEMP 98.6; O2SAT 99
[2023-05-04] MEDS: COBICISTAT GT SCH (17:15)
[2023-05-04] MEDS: DARUNAVIR GT SCH (17:15)
[2023-05-04 20:00] VITALS: BP 138/73; TEMP 97.5; O2SAT 99
[2023-05-04] MEDS: ATORVASTATIN 40 MG TABLET GT SCH (21:36)
[2023-05-04] MEDS: TAMSULOSIN 0.4 MG CAP.SR.24H GT SCH (21:36)
[2023-05-04] MEDS: ENOXAPARIN SODIUM 40 MG/0.4 ML DISP.SYRIN SQ SCH (21:40)
[2023-05-05 04:00] VITALS: BP 140/87; TEMP 97.3; O2SAT 96
[2023-05-05] MEDS: BLOOD SUGAR DIAGNOSTIC 1 EACH STRIP IN SCH ×4 (05:55→23:10)
[2023-05-05] MEDS: INSULIN REGULAR, HUMAN 100 UNIT/ML 3 ML VIAL SQ PRN ×4 (05:57→23:13)
[2023-05-05 07:35] LABS: BASOPHILS % (AUTO) 0.1 % (0.0-2.0); EOSINOPHILS # (AUTO) 0.1 K/uL (0.0-0.7); EOSINOPHILS % (AUTO) 0.7 % (0.0-6.0); HEMATOCRIT 30 % (39-51); HEMOGLOBIN 8.9 g/dL (13.5-17.5); LYMPHOCYTES # (AUTO) 2.5 K/uL (0.8-4.8); LYMPHOCYTES % (AUTO) 17.1 % (20.0-44.0); MEAN CORPUSCULAR HEMOGLOBIN 27 PG (26.0-33.0); MEAN CORPUSCULAR HGB CONC 30 g/dl (31.0-36.0); MEAN CORPUSCULAR VOLUME 92 fL (80-96); MONOCYTES # (AUTO) 0.9 K/uL (0.1-1.30); MONOCYTES % (AUTO) 5.8 % (2.0-12.0); NEUTROPHILS # (AUTO) 11.2 K/uL (1.8-8.9); NEUTROPHILS % (AUTO) 76.3 % (43.0-81.0); PLATELET COUNT (AUTO) 329 K/uL (150-450); RED BLOOD CELL COUNT(AUTO) 3.25 MIL/uL (4.5-6.0); RED CELL DISTRIBUTION WIDTH 18.7 % (11.5-15.0); WHITE BLOOD COUNT (AUTO) 14.6 K/uL (4.3-11.0)
[2023-05-05 08:00] VITALS: BP 127/67; TEMP 98.8; O2SAT 98
[2023-05-05 08:14] LABS: ALANINE AMINOTRANSFERASE 35 U/L (12-78); ALKALINE PHOSPHATASE 95 U/L (46-116); ASPARTATE AMINOTRANSFERASE 23 U/L (15-37); BILIRUBIN,TOTAL 0.5 mg/dL (0.2-1.0); CALCIUM, SERUM 10.2 mg/dL (8.5-10.1); CARBON DIOXIDE 38 mmol/L (21-32); CHLORIDE 113 mmol/L (98-107); CREATININE 1.3 mg/dL (0.6-1.3); GLUCOSE 168 mg/dL (74-106); MAGNESIUM 2.8 mg/dL (1.8-2.4); PHOSPHORUS 3.7 mg/dL (2.5-4.9); POTASSIUM 3.7 mmol/L (3.5-5.1); SODIUM SERUM 155 mmol/L (136-145); TOTAL PROTEIN, SERUM 7.9 g/dL (6.4-8.2); UREA NITROGEN, BLOOD 51 mg/dL (7-18)
[2023-05-05] MEDS: Z GUARD REMEDY 4 OZ OINT TP SCH ×2 (08:38→21:16)
[2023-05-05] MEDS: THERAHONEY GEL 1.5 OZ TUBE TP SCH (08:38)
[2023-05-05] MEDS: ASPIRIN 81 MG TAB.CHEW GT SCH (08:40)
[2023-05-05] MEDS: DOCUSATE SODIUM LIQ 100 MG/10 ML UDC GT SCH (08:40)
[2023-05-05] MEDS: DOLUTEGRAVIR SODIUM 50 MG GT SCH (08:41)
[2023-05-05] MEDS: FINASTERIDE (5 MG) 5 MG TABLET GT SCH (08:41)
[2023-05-05] MEDS: AMLODIPINE BESYLATE 10 MG TABLET GT SCH (08:41)
[2023-05-05] MEDS: FUROSEMIDE 40 MG/4 ML VIAL IV SCH (08:44)
[2023-05-05 16:00] VITALS: BP 125/72; TEMP 99; O2SAT 95
[2023-05-05] MEDS ORDERED: POLYVINYL ALCOHOL 15 ML BOTTLE LEFTEYE PRN (18:00)
[2023-05-05] MEDS: COBICISTAT GT SCH (18:21)
[2023-05-05] MEDS: DARUNAVIR GT SCH (18:21)
[2023-05-05 20:00] VITALS: BP 123/73; TEMP 97.3; O2SAT 95
[2023-05-05] MEDS: ATORVASTATIN 40 MG TABLET GT SCH (21:16)
[2023-05-05] MEDS: TAMSULOSIN 0.4 MG CAP.SR.24H GT SCH (21:17)
[2023-05-05] MEDS: ENOXAPARIN SODIUM 40 MG/0.4 ML DISP.SYRIN SQ SCH (21:17)
[2023-05-06 04:00] VITALS: BP 119/66; TEMP 97.7; O2SAT 100
[2023-05-06] MEDS: BLOOD SUGAR DIAGNOSTIC 1 EACH STRIP IN SCH ×4 (06:06→23:53)
[2023-05-06] MEDS: INSULIN REGULAR, HUMAN 100 UNIT/ML 3 ML VIAL SQ PRN ×3 (06:09→17:12)
[2023-05-06] MEDS ORDERED: IV D5W 1,000 ML IV SCH (06:30)
[2023-05-06] MEDS: AMLODIPINE BESYLATE 10 MG TABLET GT SCH (09:00)
[2023-05-06] MEDS: FUROSEMIDE 40 MG/4 ML VIAL IV SCH (09:00)
[2023-05-06] MEDS: Z GUARD REMEDY 4 OZ OINT TP SCH ×2 (09:18→21:46)
[2023-05-06] MEDS: THERAHONEY GEL 1.5 OZ TUBE TP SCH (09:18)
[2023-05-06] MEDS: DOCUSATE SODIUM LIQ 100 MG/10 ML UDC GT SCH (09:23)
[2023-05-06] MEDS: DOLUTEGRAVIR SODIUM 50 MG GT SCH (09:23)
[2023-05-06] MEDS: FINASTERIDE (5 MG) 5 MG TABLET GT SCH (09:23)
[2023-05-06] MEDS: ASPIRIN 81 MG TAB.CHEW GT SCH (09:23)
[2023-05-06 12:00] VITALS: BP 115/55; TEMP 97.9; O2SAT 95
[2023-05-06] MEDS: GLUCERNA 1.2 1,000 ML BOTTLE NG PRN (13:16)
[2023-05-06 16:00] VITALS: BP 139/46; TEMP 97.9; O2SAT 97
[2023-05-06] MEDS: COBICISTAT GT SCH (17:12)
[2023-05-06] MEDS: DARUNAVIR GT SCH (17:12)
[2023-05-06] MEDS: TAMSULOSIN 0.4 MG CAP.SR.24H GT SCH (21:46)
[2023-05-06] MEDS: ATORVASTATIN 40 MG TABLET GT SCH (21:46)
[2023-05-06] MEDS: ACETAMINOPHEN 650 MG/20.3 ML UDC GT PRN (21:46)
[2023-05-06] MEDS: ENOXAPARIN SODIUM 40 MG/0.4 ML DISP.SYRIN SQ SCH (21:48)
[2023-05-07] VITALS: BP 114/57; TEMP 99.1; O2SAT 96
[2023-05-07] MEDS: INSULIN REGULAR, HUMAN 100 UNIT/ML 3 ML VIAL SQ PRN ×4 (00:38→17:09)
[2023-05-07] MEDS: BLOOD SUGAR DIAGNOSTIC 1 EACH STRIP IN SCH ×3 (05:50→17:08)
[2023-05-07 07:36] LABS: BASOPHILS % (AUTO) 0.1 % (0.0-2.0); EOSINOPHILS # (AUTO) 0.1 K/uL (0.0-0.7); EOSINOPHILS % (AUTO) 0.6 % (0.0-6.0); HEMATOCRIT 28 % (39-51); HEMOGLOBIN 8.6 g/dL (13.5-17.5); LYMPHOCYTES # (AUTO) 2.9 K/uL (0.8-4.8); LYMPHOCYTES % (AUTO) 18.5 % (20.0-44.0); MEAN CORPUSCULAR HEMOGLOBIN 28 PG (26.0-33.0); MEAN CORPUSCULAR HGB CONC 31 g/dl (31.0-36.0); MEAN CORPUSCULAR VOLUME 89 fL (80-96); MONOCYTES % (AUTO) 6.3 % (2.0-12.0); NEUTROPHILS # (AUTO) 11.8 K/uL (1.8-8.9); NEUTROPHILS % (AUTO) 74.5 % (43.0-81.0); PLATELET COUNT (AUTO) 252 K/uL (150-450); RED CELL DISTRIBUTION WIDTH 18.8 % (11.5-15.0); WHITE BLOOD COUNT (AUTO) 15.9 K/uL (4.3-11.0)
[2023-05-07 07:54] LABS: ALANINE AMINOTRANSFERASE 96 U/L (12-78); ALBUMIN 1.9 g/dL (3.4-5.0); ALKALINE PHOSPHATASE 96 U/L (46-116); ASPARTATE AMINOTRANSFERASE 68 U/L (15-37); BILIRUBIN,TOTAL 0.8 mg/dL (0.2-1.0); CALCIUM, SERUM 9.5 mg/dL (8.5-10.1); CARBON DIOXIDE 38 mmol/L (21-32); CHLORIDE 107 mmol/L (98-107); CREATININE 1.6 mg/dL (0.6-1.3); GLUCOSE 201 mg/dL (74-106); MAGNESIUM 2.7 mg/dL (1.8-2.4); PHOSPHORUS 3.8 mg/dL (2.5-4.9); SODIUM SERUM 149 mmol/L (136-145); TOTAL PROTEIN, SERUM 7.5 g/dL (6.4-8.2); UREA NITROGEN, BLOOD 61 mg/dL (7-18)
[2023-05-07 08:06] LABS: POTASSIUM 2.7 mmol/L (3.5-5.1)
[2023-05-07] MEDS: ASPIRIN 81 MG TAB.CHEW GT SCH (08:27)
[2023-05-07] MEDS: FUROSEMIDE 40 MG/4 ML VIAL IV SCH (08:27)
[2023-05-07] MEDS: DOCUSATE SODIUM LIQ 100 MG/10 ML UDC GT SCH (08:27)
[2023-05-07] MEDS: AMLODIPINE BESYLATE 10 MG TABLET GT SCH (08:28)
[2023-05-07] MEDS: FINASTERIDE (5 MG) 5 MG TABLET GT SCH (08:28)
[2023-05-07] MEDS: Z GUARD REMEDY 4 OZ OINT TP SCH (08:28)
[2023-05-07] MEDS: THERAHONEY GEL 1.5 OZ TUBE TP SCH (08:28)
[2023-05-07] MEDS: DOLUTEGRAVIR SODIUM 50 MG GT SCH (08:29)
[2023-05-07 08:48] VITALS: BP 123/87; TEMP 97.3; O2SAT 96
[2023-05-07] MEDS ORDERED: POTASSIUM CHLORIDE 20 MEQ TAB.PRT.SR PO ONE (09:00)
[2023-05-07] MEDS ORDERED: POTASSIUM CHLORIDE 10 MEQ/50 ML PREMIXED IVPB FOR PERIPHERAL LINE IV ONE (09:00)
[2023-05-07] MEDS ORDERED: MEROPENEM 500 MG in IV NS 0.9% 50 ML IV SCH (13:00)
[2023-05-07] MEDS ORDERED: MEROPENEM 1 G in IV NS 0.9% 100 ML IV SCH (14:00)
[2023-05-07 16:15] VITALS: BP 119/66; TEMP 97.7; O2SAT 100
[2023-05-07] MEDS: COBICISTAT GT SCH (17:04)
[2023-05-07] MEDS: DARUNAVIR GT SCH (17:04)
== END 2023-05-07 20:20 | DRG 871 ==
LOC: ER 18:36 → TELE 23:59 → MED 04-06 17:03 → ICU 04-09 03:26 → TELE-TD 04-22 18:14 → TELE1 04-23 09:46 → MEDSG1 05-04 12:43
PROVIDERS: ADMIT Nurse Practitioner Acute Care
PROC: 05H533Z Insertion of Infusion Device into Right Subclavian Vein, Percutaneous Approach (ICD-10-PCS; principal; 2023-04-09)
PROC: B546ZZA Ultrasonography of Right Subclavian Vein, Guidance (ICD-10-PCS; 2023-04-09)
PROC: 5A1945Z Respiratory Ventilation, 24-96 Consecutive Hours (ICD-10-PCS; 2023-04-09)
PROC: 0BH17EZ Insertion of Endotracheal Airway into Trachea, Via Natural or Artificial Opening (ICD-10-PCS; 2023-04-09)
PROC: 0DH63UZ Insertion of Feeding Device into Stomach, Percutaneous Approach (ICD-10-PCS; 2023-04-23)
DX: A41.9 Sepsis, unspecified organism (principal); E43 Unspecified severe protein-calorie malnutrition; J69.0 Pneumonitis due to inhalation of food and vomit; J96.01 Acute respiratory failure with hypoxia; N17.0 Acute kidney failure with tubular necrosis; R53.2 Functional quadriplegia; G92.8 Other toxic encephalopathy; I63.9 Cerebral infarction, unspecified; R65.21 Severe sepsis with septic shock; D68.69 Other thrombophilia; E87.0 Hyperosmolality and hypernatremia; E87.20 Acidosis, unspecified; B37.0 Candidal stomatitis; D64.9 Anemia, unspecified; E78.5 Hyperlipidemia, unspecified; E86.0 Dehydration; I10 Essential (primary) hypertension; F03.90 Unspecified dementia, unspecified severity, without behavioral disturbance, psychotic disturbance, mood disturbance, and anxiety; E88.09 Other disorders of plasma-protein metabolism, not elsewhere classified; Z86.73 Personal history of transient ischemic attack (TIA), and cerebral infarction without residual deficits; Z88.0 Allergy status to penicillin; M43.6 Torticollis; I25.10 Atherosclerotic heart disease of native coronary artery without angina pectoris; E86.9 Volume depletion, unspecified; H10.9 Unspecified conjunctivitis; E87.6 Hypokalemia; M89.8X9 Other specified disorders of bone, unspecified site; K29.70 Gastritis, unspecified, without bleeding; R13.10 Dysphagia, unspecified; Z68.21 Body mass index [BMI] 21.0-21.9, adult; N40.0 Benign prostatic hyperplasia without lower urinary tract symptoms; R73.03 Prediabetes; L89.156 Pressure-induced deep tissue damage of sacral region; Z91.148 Patient's other noncompliance with medication regimen for other reason; R29.810 Facial weakness; Z79.899 Other long term (current) drug therapy; Z20.822 Contact with and (suspected) exposure to COVID-19
CPT/HCPCS: 31720; 36410; 36415; 36569; 36600; 43760; 70450-TC; 71045-TC; 72125-TC; 76770-TC; 80048-TC; 80053-TC; 80061-TC; 80076-TC; 81001; 82140-TC; 82570-TC; 82607-TC; 82803-TC; 82962-TC; 83605-TC; 83735-TC; 83921; 84100-TC; 84300-TC; 84443-TC; 84478-TC; 84484-TC; 85025-TC; 85610-TC; 85730-TC; 86360; 87040-TC; 87081-TC; 87086-TC; 92526; 92611-TC; 93970-TC; 94002-TC; 94003-TC; 94799-TC; 97110-TC; 97112-TC; 97530-TC; 97535-TC; A4216; A4223; A4624; A6253; A6403; A9563; C9803; G0378; G0480; J0330; J1650; J1815; J1940; J1956; J2185; J3480; J3490; J7030; J7042; J7050; J7060; J7070

== ENCOUNTER 2023-05-09 15:41 | Inpatient (IN) | payer BC, OTHER ==
[~2023-05-09] VITALS: Ht 170.2 cm; Wt 76.0 kg
[~2023-05-09 15:41] MED LIST changes: +ACET-868 GT; +ALLA266C2 TP; +AMIN30LI2 GT; +ASPI-1169 GT; +ATOR40TA GT; +BISA10SU11 RC; +CLON0.1T GT; +CRAN425C6 GT; +DARU1TAB GT; +DOCU100T2 GT; +DOLU50TA GT; +ENOX40DI SQ; +FINA5TAB3 GT; +IPRA3AMP22 IH; +LOSA50TA39 GT; +MAGN400O6 GT; +NA P133E RC; +PANT40TA2 PO; +TAMS-12 GT
[2023-05-09] MEDS ORDERED: VANCOMYCIN 1 GM in IV D5W 250 ML IV ONE (16:00)
[2023-05-09] MEDS ORDERED: CEFEPIME 1 GM in IV D5W 50 ML IV ONE (16:00)
[2023-05-09] MEDS ORDERED: PANT40SU2 GT (16:23)
[2023-05-09] MEDS ORDERED: ACET-868 GT (16:23)
[2023-05-09] MEDS ORDERED: GENT5DRO4 LEFTEYE (16:23)
[2023-05-09] MEDS ORDERED: AMIN30LI66 GT (16:23)
[2023-05-09] MEDS ORDERED: ASCO-340 GT (16:23)
[2023-05-09] MEDS ORDERED: *INS REG3 SQ (16:23)
[2023-05-09] MEDS ORDERED: DEXT15DR6 EACHEYE (16:23)
[2023-05-09] MEDS ORDERED: ZINC1CAP3 GT (16:23)
[2023-05-09] MEDS ORDERED: MULT-225 GT (16:23)
[2023-05-09] MEDS ORDERED: CRAN3875 GT (16:23)
[2023-05-09] MEDS ORDERED: NORM10VI2 IV (16:23)
[2023-05-09] MEDS ORDERED: NUT.250L18 GT (16:23)
[2023-05-09] MEDS ORDERED: IV NS 0.9% 1,000 ML BAG IV ONE (16:30)
[2023-05-09 16:45] LABS: CALCIUM, SERUM 9.9 mg/dL (8.5-10.1); CARBON DIOXIDE 36 mmol/L (21-32); CHLORIDE 113 mmol/L (98-107); CREATININE 1.8 mg/dL (0.6-1.3); GLUCOSE 159 mg/dL (74-106); POTASSIUM 3.5 mmol/L (3.5-5.1); SODIUM SERUM 154 mmol/L (136-145); UREA NITROGEN, BLOOD 59 mg/dL (7-18)
[2023-05-09 16:46] LABS: BASOPHILS % (AUTO) 0.1 % (0.0-2.0); HEMATOCRIT 27 % (39-51); HEMOGLOBIN 8.2 g/dL (13.5-17.5); LYMPHOCYTES % (AUTO) 21.4 % (20.0-44.0); MEAN CORPUSCULAR HEMOGLOBIN 27 PG (26.0-33.0); MEAN CORPUSCULAR HGB CONC 30 g/dl (31.0-36.0); MEAN CORPUSCULAR VOLUME 89 fL (80-96); MONOCYTES # (AUTO) 1.1 K/uL (0.1-1.30); NEUTROPHILS % (AUTO) 70.5 % (43.0-81.0); PLATELET COUNT (AUTO) 322 K/uL (150-450); RED BLOOD CELL COUNT(AUTO) 3.03 MIL/uL (4.5-6.0); RED CELL DISTRIBUTION WIDTH 19.4 % (11.5-15.0); WHITE BLOOD COUNT (AUTO) 14.2 K/uL (4.3-11.0)
[2023-05-09 16:51] LABS: ALANINE AMINOTRANSFERASE 52 U/L (12-78); ALBUMIN 1.8 g/dL (3.4-5.0); ALKALINE PHOSPHATASE 97 U/L (46-116); ASPARTATE AMINOTRANSFERASE 31 U/L (15-37); BILIRUBIN,DIRECT 0.2 mg/dL (0.0-0.2); BILIRUBIN,TOTAL 0.6 mg/dL (0.2-1.0); TOTAL PROTEIN, SERUM 7.9 g/dL (6.4-8.2)
[2023-05-09 16:54] LABS: LACTIC ACID 1.2 mmol/L (0.4-2.0)
[2023-05-09 17:15] LABS: INR 1.08 (0.91-1.10); PARTIAL THROMBOPLASTIN TIME 24.9 SEC (24.3-34.3); PROTHROMBIN TIME 11.4 SECS (9.2-11.1)
[2023-05-09] MEDS ORDERED: ACETAMINOPHEN 650 MG/SUPP.RECT RC ONE (17:30)
[2023-05-09 17:41] LABS: APPEARANCE,URINE CLOUDY (CLEAR); BILIRUBIN,URINE NEGATIVE (NEGATIVE); BLOOD, URINE 3+ Ery/uL (NEGATIVE); COLOR,URINE YELLOW (YELLOW); KETONES,URINE NEGATIVE (NEGATIVE); LEUKOCYTE ESTERASE ,URINE 3+ (NEGATIVE); NITRITE, URINE NEGATIVE (NEGATIVE); PH,URINE 5.5 (5.0-8.0); PROTEIN,URINE 2+ mg/dl (NEGATIVE); UGLUCOSE NEGATIVE (NEGATIVE)
[2023-05-09 17:50] LABS: ANISOCYTOSIS 1+; BAND % (MANUAL) 1 % (0.0-5.0); LYMPHOCYTES % (MANUAL) 23 % (16-48); MONOCYTES % (MANUAL) 5 % (0-11.0); NEUTROPHILS % (MANUAL) 71 (42-76); PLATELET ESTIMATE ADEQUATE; ROULEAUX 1+
[2023-05-09 17:59] LABS: ADD URINE CULTURE YES; BACTERIA,URINE 4+ /HPF (None Seen); RBC,URINE 51-80 /HPF (0-2); SQUAMOUS EPITHELIAL CELL,UR 0-2 /HPF (None Seen); WBC,URINE 51-80 /HPF (0-3)
[2023-05-09] MEDS: ASCORBIC ACID 500 MG TABLET GT SCH (18:00)
[2023-05-09] MEDS: ZINC SULFATE 220 MG CAPSULE GT SCH (18:00)
[2023-05-09] MEDS: MULTIVITAMINS,THERAGRAN 1 UDTAB TABLET GT SCH (18:00)
[2023-05-09] MEDS ORDERED: MAG HYDROX/AL HYDROX/SIMETH 30 ML UDC PO PRN (18:30)
[2023-05-09] MEDS ORDERED: BISACODYL SUPP (10 MG) 10 MG/SUPP.RECT SUPP.RECT RC PRN (18:30)
[2023-05-09] MEDS ORDERED: MAGNESIUM HYDROXIDE 30 ML UDC PO PRN (18:30)
[2023-05-09] MEDS ORDERED: CLONIDINE HCL 0.1 MG TABLET GT PRN (18:30)
[2023-05-09] MEDS ORDERED: ACETAMINOPHEN 325 MG TABLET PO PRN (18:30)
[2023-05-09] MEDS ORDERED: MAGNESIUM HYDROXIDE 30 ML UDC GT PRN ×2 (18:30→20:30)
[2023-05-09] MEDS ORDERED: NA PHOS,M-B/NA PHOS,DI-BA 1 EA ENEMA RC PRN (18:30)
[2023-05-09] MEDS ORDERED: ZOLPIDEM TARTRATE 5 MG TABLET PO PRN (18:30)
[2023-05-09] MEDS ORDERED: ONDANSETRON HCL/PF 4 MG/2 ML VIAL IVP PRN (18:30)
[2023-05-09] MEDS ORDERED: Z GUARD REMEDY 4 OZ OINT TP PRN (18:30)
[2023-05-09] MEDS ORDERED: ZINC SULFATE 220 MG CAPSULE ONE (18:41)
[2023-05-09] MEDS ORDERED: MULTIVIT W/MINERALS 1 TAB TABLET ONE (18:42)
[2023-05-09] MEDS ORDERED: ASCORBIC ACID 500 MG TABLET ONE (18:42)
[2023-05-09] MEDS ORDERED: POLYVINYL ALCOHOL 15 ML BOTTLE EACHEYE PRN (19:00)
[2023-05-09] MEDS: PROSOURCE / PROSTAT (PYXIS) 30 ML UDC GT SCH (19:03)
[2023-05-09] MEDS: ALBUTEROL FS 2.5 MG/3 ML VIAL.NEB NEB SCH (19:30)
[2023-05-09] MEDS: IPRATROPIUM NEB FS 0.5 MG/2.5 ML AMPUL.NEB NEB SCH (19:30)
[2023-05-09] MEDS ORDERED: ZOLPIDEM TARTRATE 5 MG TABLET GT PRN (20:30)
[2023-05-09] MEDS ORDERED: MAG HYDROX/AL HYDROX/SIMETH 30 ML UDC GT PRN (20:30)
[2023-05-09 20:50] VITALS: BP 124/66; TEMP 97.2; O2SAT 100
[2023-05-09] MEDS ORDERED: HEPARIN SODIUM, PORCINE 5000 UNITS/1 ML VIAL SQ SCH (21:00)
[2023-05-09] MEDS ORDERED: FIBER GT SCH (21:00)
[2023-05-09] MEDS ORDERED: NORMAL SALINE FLUSH 10 ML SYR IV SCH (21:00)
[2023-05-09] MEDS ORDERED: [UNRECOGNIZED DRUG - OTHER] GT SCH (21:00)
[2023-05-09] MEDS ORDERED: GLUCERNA 1.2 1,000 ML BOTTLE NG PRN (21:00)
[2023-05-09] MEDS: FINASTERIDE (5 MG) 5 MG TABLET GT SCH (23:29)
[2023-05-09] MEDS: ATORVASTATIN 40 MG TABLET GT SCH (23:29)
[2023-05-09] MEDS: TAMSULOSIN 0.4 MG CAP.SR.24H GT SCH (23:29)
[2023-05-09] MEDS: IV 1/2NS 1000 ML 1,000 ML IV PRN (23:46)
[2023-05-09] MEDS: BLOOD SUGAR DIAGNOSTIC 1 EACH STRIP IN SCH (23:52)
[2023-05-10] VITALS (13 sets, daily range): BP systolic 93–151; BP diastolic 42–71; TEMP 97.3–98.8; O2SAT 95–100
[2023-05-10] MEDS ORDERED: Medication Not On Formulary EA (Ipratropium/Albuterol Sulfate (Ipratr-Albuterol 0.5-3 Mg IH SCH
[2023-05-10] MEDS: ALBUTEROL FS 2.5 MG/3 ML VIAL.NEB NEB SCH ×4 (02:04→19:25)
[2023-05-10] MEDS: IPRATROPIUM NEB FS 0.5 MG/2.5 ML AMPUL.NEB NEB SCH ×4 (02:04→19:25)
[2023-05-10] MEDS: BLOOD SUGAR DIAGNOSTIC 1 EACH STRIP IN SCH ×3 (06:14→17:15)
[2023-05-10 07:15] LABS: BASOPHILS % (AUTO) 0.2 % (0.0-2.0); EOSINOPHILS # (AUTO) 0.1 K/uL (0.0-0.7); EOSINOPHILS % (AUTO) 0.8 % (0.0-6.0); HEMATOCRIT 25 % (39-51); HEMOGLOBIN 7.6 g/dL (13.5-17.5); LYMPHOCYTES # (AUTO) 2.1 K/uL (0.8-4.8); LYMPHOCYTES % (AUTO) 21.1 % (20.0-44.0); MEAN CORPUSCULAR HEMOGLOBIN 28 PG (26.0-33.0); MEAN CORPUSCULAR HGB CONC 31 g/dl (31.0-36.0); MEAN CORPUSCULAR VOLUME 92 fL (80-96); MONOCYTES # (AUTO) 0.8 K/uL (0.1-1.30); MONOCYTES % (AUTO) 7.7 % (2.0-12.0); NEUTROPHILS # (AUTO) 7.1 K/uL (1.8-8.9); NEUTROPHILS % (AUTO) 70.2 % (43.0-81.0); PLATELET COUNT (AUTO) 222 K/uL (150-450); RED BLOOD CELL COUNT(AUTO) 2.71 MIL/uL (4.5-6.0); WHITE BLOOD COUNT (AUTO) 10.1 K/uL (4.3-11.0)
[2023-05-10 07:38] LABS: CARBON DIOXIDE 33 mmol/L (21-32); CHLORIDE 117 mmol/L (98-107); CREATININE 1.3 mg/dL (0.6-1.3); GLUCOSE 125 mg/dL (74-106); MAGNESIUM 2.7 mg/dL (1.8-2.4); PHOSPHORUS 3.3 mg/dL (2.5-4.9); UREA NITROGEN, BLOOD 51 mg/dL (7-18)
[2023-05-10 08:06] LABS: SODIUM SERUM 155 mmol/L (136-145)
[2023-05-10 08:37] LABS: POTASSIUM 2.7 mmol/L (3.5-5.1)
[2023-05-10] MEDS ORDERED: Medication Not On Formulary EA (Cran/Vitc/Mannose/Inulin/Brom (Uti-Stat Liquid) 30 ML) GT SCH (09:00)
[2023-05-10] MEDS ORDERED: Medication Not On Formulary EA (Dolutegravir Sodium (Tivicay) 50 MG) GT SCH (09:00)
[2023-05-10] MEDS ORDERED: Medication Not On Formulary EA (Cranberry Extract (Cranberry) 425 MG) GT SCH (09:00)
[2023-05-10] MEDS ORDERED: LOSARTAN POTASSIUM 50 MG TABLET GT SCH (09:00)
[2023-05-10] MEDS: GENTAMICIN OPTH SOLN 0.3% 5 ML BOTTLE LEFTEYE SCH ×3 (09:00→17:15)
[2023-05-10] MEDS: DOCUSATE SODIUM LIQ 100 MG/10 ML UDC GT SCH (10:17)
[2023-05-10] MEDS: PANTOPRAZOLE 40 MG VIAL IV SCH (10:18)
[2023-05-10] MEDS: HEPARIN SODIUM, PORCINE 5000 UNITS/1 ML VIAL SQ SCH ×2 (10:18→22:04)
[2023-05-10] MEDS: ASPIRIN 81 MG TAB.CHEW GT SCH (10:18)
[2023-05-10] MEDS: AMLODIPINE BESYLATE 10 MG TABLET GT SCH (10:19)
[2023-05-10] MEDS: THERAHONEY GEL 1.5 OZ TUBE TP SCH (10:22)
[2023-05-10] MEDS: POTASSIUM CL. PREMIX PERIPHER. 50 ML IV SCH ×4 (10:55→13:58)
[2023-05-10] MEDS: CEFEPIME 1 GM in IV D5W 50 ML IV SCH ×2 (10:55→22:01)
[2023-05-10] MEDS: IV 1/2NS 1000 ML 1,000 ML IV PRN (11:21)
[2023-05-10 14:55] LABS: CALCIUM, SERUM 8.9 mg/dL (8.5-10.1); CARBON DIOXIDE 32 mmol/L (21-32); CHLORIDE 119 mmol/L (98-107); CREATININE 1.1 mg/dL (0.6-1.3); GLUCOSE 129 mg/dL (74-106); POTASSIUM 3.4 mmol/L (3.5-5.1); SODIUM SERUM 155 mmol/L (136-145); UREA NITROGEN, BLOOD 42 mg/dL (7-18)
[2023-05-10] MEDS ORDERED: VANCOMYCIN 1 GM in IV D5W 250ml IV SCH (16:00)
[2023-05-10] MEDS: MULTIVITAMINS,THERAGRAN 1 UDTAB TABLET GT SCH (17:14)
[2023-05-10] MEDS: ASCORBIC ACID 500 MG TABLET GT SCH (17:14)
[2023-05-10] MEDS: PROSOURCE / PROSTAT (PYXIS) 30 ML UDC GT SCH (17:14)
[2023-05-10] MEDS: ZINC SULFATE 220 MG CAPSULE GT SCH (17:14)
[2023-05-10] MEDS ORDERED: Medication Not On Formulary EA (Amino AC/Protein Hydr/Whey Pro (Liquacel Liquid Protein GT SCH (18:00)
[2023-05-10] MEDS: TAMSULOSIN 0.4 MG CAP.SR.24H GT SCH (22:04)
[2023-05-10] MEDS: FINASTERIDE (5 MG) 5 MG TABLET GT SCH (22:04)
[2023-05-10] MEDS: ATORVASTATIN 40 MG TABLET GT SCH (22:04)
[2023-05-11] VITALS (19 sets, daily range): BP systolic 96–125; BP diastolic 42–68; TEMP 97–98.5; O2SAT 96–99
[2023-05-11] MEDS: ALBUTEROL FS 2.5 MG/3 ML VIAL.NEB NEB SCH ×4 (02:02→20:02)
[2023-05-11] MEDS: IPRATROPIUM NEB FS 0.5 MG/2.5 ML AMPUL.NEB NEB SCH ×4 (02:02→20:02)
[2023-05-11] MEDS: BLOOD SUGAR DIAGNOSTIC 1 EACH STRIP IN SCH ×4 (05:33→17:07)
[2023-05-11] MEDS: IV 1/2NS 1000 ML 1,000 ML IV PRN (05:34)
[2023-05-11 07:03] LABS: ALANINE AMINOTRANSFERASE 28 U/L (12-78); ALKALINE PHOSPHATASE 76 U/L (46-116); ASPARTATE AMINOTRANSFERASE 20 U/L (15-37); BILIRUBIN,TOTAL 0.5 mg/dL (0.2-1.0); CALCIUM, SERUM 8.8 mg/dL (8.5-10.1); CARBON DIOXIDE 30 mmol/L (21-32); CHLORIDE 116 mmol/L (98-107); CREATININE 0.9 mg/dL (0.6-1.3); GLUCOSE 94 mg/dL (74-106); MAGNESIUM 2.5 mg/dL (1.8-2.4); PHOSPHORUS 2.1 mg/dL (2.5-4.9); POTASSIUM 3.3 mmol/L (3.5-5.1); SODIUM SERUM 152 mmol/L (136-145); TOTAL PROTEIN, SERUM 5.9 g/dL (6.4-8.2); UREA NITROGEN, BLOOD 30 mg/dL (7-18)
[2023-05-11 07:14] LABS: CREATINE KINASE, TOTAL 105 U/L (39-308)
[2023-05-11 07:15] LABS: BASOPHILS % (AUTO) 0.1 % (0.0-2.0); EOSINOPHILS # (AUTO) 0.1 K/uL (0.0-0.7); EOSINOPHILS % (AUTO) 1.8 % (0.0-6.0); HEMATOCRIT 22 % (39-51); LYMPHOCYTES # (AUTO) 2.2 K/uL (0.8-4.8); LYMPHOCYTES % (AUTO) 27.6 % (20.0-44.0); MEAN CORPUSCULAR HEMOGLOBIN 28 PG (26.0-33.0); MEAN CORPUSCULAR HGB CONC 30 g/dl (31.0-36.0); MEAN CORPUSCULAR VOLUME 91 fL (80-96); MONOCYTES # (AUTO) 0.4 K/uL (0.1-1.30); MONOCYTES % (AUTO) 5.4 % (2.0-12.0); NEUTROPHILS # (AUTO) 5.2 K/uL (1.8-8.9); NEUTROPHILS % (AUTO) 65.1 % (43.0-81.0); PLATELET COUNT (AUTO) 206 K/uL (150-450); RED BLOOD CELL COUNT(AUTO) 2.35 MIL/uL (4.5-6.0); RED CELL DISTRIBUTION WIDTH 18.8 % (11.5-15.0)
[2023-05-11 07:27] LABS: HEMOGLOBIN 6.5 g/dL (13.5-17.5)
[2023-05-11] MEDS: ASPIRIN 81 MG TAB.CHEW GT SCH (09:00)
[2023-05-11] MEDS: DOCUSATE SODIUM LIQ 100 MG/10 ML UDC GT SCH (09:00)
[2023-05-11] MEDS: PANTOPRAZOLE 40 MG VIAL IV SCH (09:00)
[2023-05-11] MEDS: HEPARIN SODIUM, PORCINE 5000 UNITS/1 ML VIAL SQ SCH ×2 (09:00→21:00)
[2023-05-11] MEDS: AMLODIPINE BESYLATE 10 MG TABLET GT SCH (09:01)
[2023-05-11] MEDS: GENTAMICIN OPTH SOLN 0.3% 5 ML BOTTLE LEFTEYE SCH ×3 (09:03→16:48)
[2023-05-11] MEDS: THERAHONEY GEL 1.5 OZ TUBE TP SCH (09:04)
[2023-05-11] MEDS: CEFEPIME 1 GM in IV D5W 50 ML IV SCH (09:07)
[2023-05-11 09:12] LABS: ALBUMIN 1.4 g/dL (3.4-5.0)
[2023-05-11 10:12] LABS: APPEARANCE,URINE CLEAR (CLEAR); BILIRUBIN,URINE NEGATIVE (NEGATIVE); BLOOD, URINE 1+ Ery/uL (NEGATIVE); COLOR,URINE YELLOW (YELLOW); KETONES,URINE NEGATIVE (NEGATIVE); LEUKOCYTE ESTERASE ,URINE 1+ (NEGATIVE); NITRITE, URINE NEGATIVE (NEGATIVE); PROTEIN,URINE 1+ mg/dl (NEGATIVE); UGLUCOSE NEGATIVE (NEGATIVE)
[2023-05-11 10:15] LABS: ADD URINE CULTURE YES; BACTERIA,URINE Few /HPF (None Seen); EOSINOPHIL,URINE Few; SQUAMOUS EPITHELIAL CELL,UR Rare /HPF (None Seen)
[2023-05-11 10:19] LABS: URINE TOTAL PROTEIN 66.5 mg/dL (0-11.9)
[2023-05-11] MEDS ORDERED: VANCOMYCIN 0.75 GM in IV D5W 250 ML IV SCH (11:00)
[2023-05-11 12:34] LABS: ANISOCYTOSIS 1+; BASOPHILS % (MANUAL) 0 % (0.0-2.0); EOSINOPHILS % (MANUAL) 2 % (0-4); HYPOCHROMASIA 1+; LYMPHOCYTES % (MANUAL) 22 % (16-48); MONOCYTES % (MANUAL) 7 % (0-11.0); NEUTROPHILS % (MANUAL) 69 (42-76); PLATELET ESTIMATE ADEQUATE
[2023-05-11] MEDS ORDERED: Sodium Phosphate 15 MMOL in IV NS 0.9% 245 ML IV SCH (15:30)
[2023-05-11] MEDS ORDERED: ACETAMINOPHEN 650 MG/20.3 ML UDC GT PRN (15:30)
[2023-05-11] MEDS: PROSOURCE / PROSTAT (PYXIS) 30 ML UDC GT SCH (16:49)
[2023-05-11] MEDS: ZINC SULFATE 220 MG CAPSULE GT SCH (17:07)
[2023-05-11] MEDS: MULTIVITAMINS,THERAGRAN 1 UDTAB TABLET GT SCH (17:07)
[2023-05-11] MEDS: ASCORBIC ACID 500 MG TABLET GT SCH (17:07)
[2023-05-11] MEDS: TAMSULOSIN 0.4 MG CAP.SR.24H GT SCH (23:27)
[2023-05-11] MEDS: ATORVASTATIN 40 MG TABLET GT SCH (23:28)
[2023-05-11] MEDS: FINASTERIDE (5 MG) 5 MG TABLET GT SCH (23:28)
[2023-05-12] VITALS (15 sets, daily range): BP systolic 113–136; BP diastolic 64–75; TEMP 97.5–98.9; O2SAT 96–100
[2023-05-12] MEDS: BLOOD SUGAR DIAGNOSTIC 1 EACH STRIP IN SCH ×4 (00:27→18:09)
[2023-05-12] MEDS: CEFEPIME 1 GM in IV D5W 50 ML IV SCH ×3 (00:33→21:46)
[2023-05-12] MEDS: ALBUTEROL FS 2.5 MG/3 ML VIAL.NEB NEB SCH ×4 (01:49→20:11)
[2023-05-12] MEDS: IPRATROPIUM NEB FS 0.5 MG/2.5 ML AMPUL.NEB NEB SCH ×4 (01:49→20:11)
[2023-05-12] MEDS: GLUCERNA 1.2 1,000 ML BOTTLE NG SCH (06:25)
[2023-05-12 07:20] LABS: BASOPHILS % (AUTO) 0.1 % (0.0-2.0); EOSINOPHILS # (AUTO) 0.2 K/uL (0.0-0.7); HEMATOCRIT 31 % (39-51); LYMPHOCYTES # (AUTO) 2.1 K/uL (0.8-4.8); LYMPHOCYTES % (AUTO) 21.5 % (20.0-44.0); MEAN CORPUSCULAR HEMOGLOBIN 28 PG (26.0-33.0); MEAN CORPUSCULAR HGB CONC 32 g/dl (31.0-36.0); MEAN CORPUSCULAR VOLUME 88 fL (80-96); MONOCYTES # (AUTO) 0.6 K/uL (0.1-1.30); MONOCYTES % (AUTO) 6.6 % (2.0-12.0); NEUTROPHILS # (AUTO) 6.8 K/uL (1.8-8.9); NEUTROPHILS % (AUTO) 69.8 % (43.0-81.0); PLATELET COUNT (AUTO) 269 K/uL (150-450); RED BLOOD CELL COUNT(AUTO) 3.54 MIL/uL (4.5-6.0); RED CELL DISTRIBUTION WIDTH 16.7 % (11.5-15.0); WHITE BLOOD COUNT (AUTO) 9.8 K/uL (4.3-11.0)
[2023-05-12 07:44] LABS: CALCIUM, SERUM 8.9 mg/dL (8.5-10.1); CREATININE 0.8 mg/dL (0.6-1.3); PHOSPHORUS 2.9 mg/dL (2.5-4.9); POTASSIUM 2.9 mmol/L (3.5-5.1)
[2023-05-12 08:14] LABS: MAGNESIUM 2.2 mg/dL (1.8-2.4)
[2023-05-12] MEDS: PANTOPRAZOLE 40 MG VIAL IV SCH (09:10)
[2023-05-12] MEDS: ASPIRIN 81 MG TAB.CHEW GT SCH (09:10)
[2023-05-12] MEDS: DOCUSATE SODIUM LIQ 100 MG/10 ML UDC GT SCH (09:10)
[2023-05-12] MEDS: AMLODIPINE BESYLATE 10 MG TABLET GT SCH (09:12)
[2023-05-12] MEDS: GENTAMICIN OPTH SOLN 0.3% 5 ML BOTTLE LEFTEYE SCH ×3 (09:13→17:03)
[2023-05-12] MEDS: THERAHONEY GEL 1.5 OZ TUBE TP SCH (09:14)
[2023-05-12] MEDS: HEPARIN SODIUM, PORCINE 5000 UNITS/1 ML VIAL SQ SCH ×2 (09:15→22:08)
[2023-05-12] MEDS: POTASSIUM CHLORIDE 20 MEQ POWDER PACKET NG SCH ×3 (10:46→13:05)
[2023-05-12] MEDS: PROSOURCE / PROSTAT (PYXIS) 30 ML UDC GT SCH (17:03)
[2023-05-12] MEDS: ASCORBIC ACID 500 MG TABLET GT SCH (17:05)
[2023-05-12] MEDS: ZINC SULFATE 220 MG CAPSULE GT SCH (17:05)
[2023-05-12] MEDS: MULTIVITAMINS,THERAGRAN 1 UDTAB TABLET GT SCH (17:05)
[2023-05-12] MEDS: FINASTERIDE (5 MG) 5 MG TABLET GT SCH (21:57)
[2023-05-12] MEDS: TAMSULOSIN 0.4 MG CAP.SR.24H GT SCH (21:57)
[2023-05-12] MEDS: ATORVASTATIN 40 MG TABLET GT SCH (21:58)
[2023-05-13] VITALS (14 sets, daily range): BP systolic 113–135; BP diastolic 59–102; TEMP 97.7–99.6; O2SAT 97–99
[2023-05-13] MEDS: BLOOD SUGAR DIAGNOSTIC 1 EACH STRIP IN SCH ×4 (00:37→17:49)
[2023-05-13] MEDS: GLUCERNA 1.2 1,000 ML BOTTLE NG SCH ×2 (01:10→16:58)
[2023-05-13] MEDS: ALBUTEROL FS 2.5 MG/3 ML VIAL.NEB NEB SCH ×4 (02:19→20:16)
[2023-05-13] MEDS: IPRATROPIUM NEB FS 0.5 MG/2.5 ML AMPUL.NEB NEB SCH ×4 (02:19→20:17)
[2023-05-13 07:05] LABS: BASOPHILS % (AUTO) 0.2 % (0.0-2.0); EOSINOPHILS # (AUTO) 0.2 K/uL (0.0-0.7); EOSINOPHILS % (AUTO) 1.9 % (0.0-6.0); HEMATOCRIT 29 % (39-51); HEMOGLOBIN 9.3 g/dL (13.5-17.5); LYMPHOCYTES # (AUTO) 2.2 K/uL (0.8-4.8); MEAN CORPUSCULAR HEMOGLOBIN 29 PG (26.0-33.0); MEAN CORPUSCULAR HGB CONC 32 g/dl (31.0-36.0); MEAN CORPUSCULAR VOLUME 89 fL (80-96); MONOCYTES # (AUTO) 0.7 K/uL (0.1-1.30); MONOCYTES % (AUTO) 7.9 % (2.0-12.0); NEUTROPHILS # (AUTO) 5.2 K/uL (1.8-8.9); PLATELET COUNT (AUTO) 230 K/uL (150-450); RED BLOOD CELL COUNT(AUTO) 3.25 MIL/uL (4.5-6.0); RED CELL DISTRIBUTION WIDTH 17.4 % (11.5-15.0); WHITE BLOOD COUNT (AUTO) 8.3 K/uL (4.3-11.0)
[2023-05-13 07:28] LABS: OCCULT BLOOD STOOL NEGATIVE (NEGATIVE)
[2023-05-13 07:50] LABS: CALCIUM, SERUM 8.8 mg/dL (8.5-10.1); CREATININE 0.7 mg/dL (0.6-1.3); MAGNESIUM 2.4 mg/dL (1.8-2.4); PHOSPHORUS 2.3 mg/dL (2.5-4.9); POTASSIUM 4.1 mmol/L (3.5-5.1)
[2023-05-13] MEDS: CEFEPIME 1 GM in IV D5W 50 ML IV SCH ×2 (09:32→21:34)
[2023-05-13] MEDS: DOCUSATE SODIUM LIQ 100 MG/10 ML UDC GT SCH (09:34)
[2023-05-13] MEDS: PANTOPRAZOLE 40 MG/PACK PACK NG SCH (09:34)
[2023-05-13] MEDS: ASPIRIN 81 MG TAB.CHEW GT SCH (09:34)
[2023-05-13] MEDS: AMLODIPINE BESYLATE 10 MG TABLET GT SCH (09:34)
[2023-05-13] MEDS: HEPARIN SODIUM, PORCINE 5000 UNITS/1 ML VIAL SQ SCH ×2 (09:35→21:33)
[2023-05-13] MEDS: THERAHONEY GEL 1.5 OZ TUBE TP SCH (09:36)
[2023-05-13] MEDS: GENTAMICIN OPTH SOLN 0.3% 5 ML BOTTLE LEFTEYE SCH ×3 (09:36→17:48)
[2023-05-13] MEDS ORDERED: DEXTROSE 50%-WATER 50 ML DISP.SYRIN IV PRN (12:30)
[2023-05-13] MEDS ORDERED: NEUTRA PHOS 1 POWD.PACKET NG ONE (15:30)
[2023-05-13] MEDS: MULTIVITAMINS,THERAGRAN 1 UDTAB TABLET GT SCH (17:53)
[2023-05-13] MEDS: PROSOURCE / PROSTAT (PYXIS) 30 ML UDC GT SCH (17:53)
[2023-05-13] MEDS: ZINC SULFATE 220 MG CAPSULE GT SCH (17:53)
[2023-05-13] MEDS: ASCORBIC ACID 500 MG TABLET GT SCH (17:53)
[2023-05-13] MEDS: INSULIN REGULAR, HUMAN 100 UNIT/ML 3 ML VIAL SQ PRN (17:54)
[2023-05-13] MEDS ORDERED: BLOOD SUGAR DIAGNOSTIC 1 EACH STRIP IN SCH (18:00)
[2023-05-13] MEDS: FINASTERIDE (5 MG) 5 MG TABLET GT SCH (21:32)
[2023-05-13] MEDS: ATORVASTATIN 40 MG TABLET GT SCH (21:32)
[2023-05-13] MEDS: TAMSULOSIN 0.4 MG CAP.SR.24H GT SCH (21:32)
[2023-05-14] VITALS (13 sets, daily range): BP systolic 128–149; BP diastolic 65–84; TEMP 97.3–99.2; O2SAT 97–100
[2023-05-14 00:06] LABS: PTH, INTACT 39 pg/mL (15-65)
[2023-05-14] MEDS: BLOOD SUGAR DIAGNOSTIC 1 EACH STRIP IN SCH ×4 (00:59→18:03)
[2023-05-14] MEDS: ALBUTEROL FS 2.5 MG/3 ML VIAL.NEB NEB SCH ×4 (02:27→20:29)
[2023-05-14] MEDS: IPRATROPIUM NEB FS 0.5 MG/2.5 ML AMPUL.NEB NEB SCH ×4 (02:27→20:29)
[2023-05-14] MEDS: INSULIN REGULAR, HUMAN 100 UNIT/ML 3 ML VIAL SQ PRN (05:34)
[2023-05-14 07:41] LABS: CALCIUM, SERUM 8.9 mg/dL (8.5-10.1); CREATININE 0.7 mg/dL (0.6-1.3); PHOSPHORUS 2.7 mg/dL (2.5-4.9); POTASSIUM 3.9 mmol/L (3.5-5.1)
[2023-05-14 08:09] LABS: *SPE A/G RATIO 0.5 (0.7-1.7); *SPE ALBUMIN 1.6 g/dL (2.9-4.4); *SPE ALPHA-1-GLOBULIN 0.3 g/dL (0.0-0.4); *SPE ALPHA-2-GLOBULIN 1.1 g/dL (0.4-1.0); *SPE BETA GLOBULIN 0.7 g/dL (0.7-1.3); *SPE GLOBULIN, TOTAL 3.4 g/dL (2.2-3.9); *SPE M-SPIKE Not Observed g/dL (Not Observed); *SPEGAMMA GLOBULIN 1.3 g/dL (0.4-1.8)
[2023-05-14] MEDS: PANTOPRAZOLE 40 MG/PACK PACK NG SCH (09:12)
[2023-05-14] MEDS: ASPIRIN 81 MG TAB.CHEW GT SCH (09:12)
[2023-05-14] MEDS: AMLODIPINE BESYLATE 10 MG TABLET GT SCH (09:12)
[2023-05-14] MEDS: CEFEPIME 1 GM in IV D5W 50 ML IV SCH ×2 (09:12→22:22)
[2023-05-14] MEDS: GENTAMICIN OPTH SOLN 0.3% 5 ML BOTTLE LEFTEYE SCH ×3 (09:13→18:04)
[2023-05-14] MEDS: DOCUSATE SODIUM LIQ 100 MG/10 ML UDC GT SCH (09:13)
[2023-05-14] MEDS: THERAHONEY GEL 1.5 OZ TUBE TP SCH (09:13)
[2023-05-14] MEDS: HEPARIN SODIUM, PORCINE 5000 UNITS/1 ML VIAL SQ SCH ×2 (09:15→22:18)
[2023-05-14] MEDS ORDERED: LIDOCAINE 1%-EPI 1:100,000 20 ML VIAL TP ONE (12:00)
[2023-05-14] MEDS ORDERED: SILVER NITRATE APPLICATOR 1 EA BOX TP SCH (12:00)
[2023-05-14] MEDS: GLUCERNA 1.2 1,000 ML BOTTLE NG SCH (15:14)
[2023-05-14] MEDS: PROSOURCE / PROSTAT (PYXIS) 30 ML UDC GT SCH (18:05)
[2023-05-14] MEDS: ASCORBIC ACID 500 MG TABLET GT SCH (18:35)
[2023-05-14] MEDS: ZINC SULFATE 220 MG CAPSULE GT SCH (18:35)
[2023-05-14] MEDS: MULTIVITAMINS,THERAGRAN 1 UDTAB TABLET GT SCH (18:35)
[2023-05-14] MEDS: FINASTERIDE (5 MG) 5 MG TABLET GT SCH (22:14)
[2023-05-14] MEDS: ATORVASTATIN 40 MG TABLET GT SCH (22:14)
[2023-05-14] MEDS: TAMSULOSIN 0.4 MG CAP.SR.24H GT SCH (22:14)
[2023-05-15] VITALS (9 sets, daily range): BP systolic 146–149; BP diastolic 72–85; TEMP 97.4–99; O2SAT 97–100
[2023-05-15] MEDS: BLOOD SUGAR DIAGNOSTIC 1 EACH STRIP IN SCH ×4 (00:56→17:45)
[2023-05-15] MEDS: IPRATROPIUM NEB FS 0.5 MG/2.5 ML AMPUL.NEB NEB SCH ×4 (01:30→20:02)
[2023-05-15] MEDS: ALBUTEROL FS 2.5 MG/3 ML VIAL.NEB NEB SCH ×4 (01:30→20:01)
[2023-05-15] MEDS: INSULIN REGULAR, HUMAN 100 UNIT/ML 3 ML VIAL SQ PRN ×3 (01:57→17:46)
[2023-05-15 07:07] LABS: CALCIUM, SERUM 9.3 mg/dL (8.5-10.1); CREATININE 0.6 mg/dL (0.6-1.3); POTASSIUM 4.6 mmol/L (3.5-5.1)
[2023-05-15 08:51] LABS: HEMOGLOBIN 10.1 g/dL (13.5-17.5)
[2023-05-15] MEDS: CEFEPIME 1 GM in IV D5W 50 ML IV SCH ×2 (09:02→21:24)
[2023-05-15] MEDS: PANTOPRAZOLE 40 MG/PACK PACK NG SCH (09:02)
[2023-05-15] MEDS: ASPIRIN 81 MG TAB.CHEW GT SCH (09:02)
[2023-05-15] MEDS: DOCUSATE SODIUM LIQ 100 MG/10 ML UDC GT SCH (09:02)
[2023-05-15] MEDS: AMLODIPINE BESYLATE 10 MG TABLET GT SCH (09:05)
[2023-05-15] MEDS: GENTAMICIN OPTH SOLN 0.3% 5 ML BOTTLE LEFTEYE SCH (09:07)
[2023-05-15] MEDS: THERAHONEY GEL 1.5 OZ TUBE TP SCH (09:07)
[2023-05-15] MEDS: HEPARIN SODIUM, PORCINE 5000 UNITS/1 ML VIAL SQ SCH ×2 (09:32→21:26)
[2023-05-15] MEDS ORDERED: TOBR5DRO46 EACHEYE (11:19)
[2023-05-15] MEDS: TOBRAMYCIN OPHTH 5ML 5 ML BOTTLE LEFTEYE SCH ×4 (11:46→21:28)
[2023-05-15] MEDS ORDERED: SILVER NITRATE APPLICATOR 1 EA BOX TP SCH (12:00)
[2023-05-15] MEDS: ZINC SULFATE 220 MG CAPSULE GT SCH (17:44)
[2023-05-15] MEDS: ASCORBIC ACID 500 MG TABLET GT SCH (17:44)
[2023-05-15] MEDS: MULTIVITAMINS,THERAGRAN 1 UDTAB TABLET GT SCH (17:44)
[2023-05-15] MEDS: PROSOURCE / PROSTAT (PYXIS) 30 ML UDC GT SCH (17:44)
[2023-05-15] MEDS: GLUCERNA 1.2 1,000 ML BOTTLE NG SCH (19:13)
[2023-05-15] MEDS: FINASTERIDE (5 MG) 5 MG TABLET GT SCH (21:27)
[2023-05-15] MEDS: ATORVASTATIN 40 MG TABLET GT SCH (21:27)
[2023-05-15] MEDS: TAMSULOSIN 0.4 MG CAP.SR.24H GT SCH (21:27)
[2023-05-16] VITALS (8 sets, daily range): BP systolic 138–151; BP diastolic 73–82; TEMP 97.9–98.2; O2SAT 98–100
[2023-05-16] MEDS: BLOOD SUGAR DIAGNOSTIC 1 EACH STRIP IN SCH ×3 (00:13→12:14)
[2023-05-16] MEDS: INSULIN REGULAR, HUMAN 100 UNIT/ML 3 ML VIAL SQ PRN ×3 (00:23→12:16)
[2023-05-16] MEDS: TOBRAMYCIN OPHTH 5ML 5 ML BOTTLE LEFTEYE SCH ×4 (01:09→12:17)
[2023-05-16] MEDS: IPRATROPIUM NEB FS 0.5 MG/2.5 ML AMPUL.NEB NEB SCH ×3 (01:38→14:12)
[2023-05-16] MEDS: ALBUTEROL FS 2.5 MG/3 ML VIAL.NEB NEB SCH ×3 (01:39→14:12)
[2023-05-16] MEDS: ASPIRIN 81 MG TAB.CHEW GT SCH (08:49)
[2023-05-16] MEDS: DOCUSATE SODIUM LIQ 100 MG/10 ML UDC GT SCH (08:49)
[2023-05-16] MEDS: CEFEPIME 1 GM in IV D5W 50 ML IV SCH (08:49)
[2023-05-16] MEDS: PANTOPRAZOLE 40 MG/PACK PACK NG SCH (08:49)
[2023-05-16] MEDS: AMLODIPINE BESYLATE 10 MG TABLET GT SCH (08:50)
[2023-05-16] MEDS: THERAHONEY GEL 1.5 OZ TUBE TP SCH (08:52)
[2023-05-16] MEDS: HEPARIN SODIUM, PORCINE 5000 UNITS/1 ML VIAL SQ SCH (08:52)
== END 2023-05-16 17:21 | DRG 853 ==
LOC: ER 15:43 → TELE-TD 20:13 → TELE1 20:22 → MEDSG1 05-14 12:58
PROVIDERS: ADMIT Student in an Organized Health Care Education/Training Program; ATTEND Internal Medicine
PROC: 30233N1 Transfusion of Nonautologous Red Blood Cells into Peripheral Vein, Percutaneous Approach (ICD-10-PCS; 2023-05-11)
PROC: 0KBN0ZZ Excision of Right Hip Muscle, Open Approach (ICD-10-PCS; principal; 2023-05-15)
PROC: 0KBP0ZZ Excision of Left Hip Muscle, Open Approach (ICD-10-PCS; 2023-05-15)
DX: A41.9 Sepsis, unspecified organism (principal); E43 Unspecified severe protein-calorie malnutrition; L89.154 Pressure ulcer of sacral region, stage 4; G92.8 Other toxic encephalopathy; N17.0 Acute kidney failure with tubular necrosis; J96.01 Acute respiratory failure with hypoxia; J69.0 Pneumonitis due to inhalation of food and vomit; N39.0 Urinary tract infection, site not specified; M84.421A Pathological fracture, right humerus, initial encounter for fracture; E87.3 Alkalosis; Z88.0 Allergy status to penicillin; Z79.4 Long term (current) use of insulin; Z79.51 Long term (current) use of inhaled steroids; Z79.899 Other long term (current) drug therapy; Z79.82 Long term (current) use of aspirin; Z79.01 Long term (current) use of anticoagulants; R13.10 Dysphagia, unspecified; Z93.1 Gastrostomy status; E78.5 Hyperlipidemia, unspecified; D64.9 Anemia, unspecified; Z86.73 Personal history of transient ischemic attack (TIA), and cerebral infarction without residual deficits; H10.9 Unspecified conjunctivitis; N40.0 Benign prostatic hyperplasia without lower urinary tract symptoms; E66.01 Morbid (severe) obesity due to excess calories; I10 Essential (primary) hypertension; Z87.01 Personal history of pneumonia (recurrent); M89.8X9 Other specified disorders of bone, unspecified site; E88.09 Other disorders of plasma-protein metabolism, not elsewhere classified; E87.6 Hypokalemia; E86.0 Dehydration; E86.9 Volume depletion, unspecified; E83.41 Hypermagnesemia; L89.116 Pressure-induced deep tissue damage of right upper back; L89.216 Pressure-induced deep tissue damage of right hip; B96.5 Pseudomonas (aeruginosa) (mallei) (pseudomallei) as the cause of diseases classified elsewhere; E11.9 Type 2 diabetes mellitus without complications
CPT/HCPCS: 36415; 71045-TC; 73060-TC; 80048-TC; 80053-TC; 80076-TC; 81001; 82272-TC; 82550-TC; 82570-TC; 82962-TC; 83605-TC; 83735-TC; 83970; 84100-TC; 84155; 84165; 84300-TC; 84484-TC; 85025-TC; 85027-TC; 85730-TC; 86850-TC; 87040-TC; 87081-TC; 87086-TC; 92526; 92611-TC; 94799-TC; A4223; A6403; A9563; C9113; G0378; J0692; J1644; J1815; J3370; J3480; J3490; J7030; J7040; J7050; J7060; P9016

== ENCOUNTER 2023-05-18 09:57 | Inpatient (IN) | payer BC, OTHER ==
[~2023-05-18] VITALS: Ht 170.2 cm; Wt 60.0 kg
[~2023-05-18 09:57] MED LIST changes: +*INS REG3 SQ; -ALLA266C2 TP; +AMIN30LI66 GT; +ASCO-340 GT; -ATOR20TA PO; +CRAN3875 GT; +DEXT15DR6 EACHEYE; +GENT5DRO4 LEFTEYE; -HIV; +MULT-225 GT; +NORM10VI2 IV; +NUT.250L18 GT; +PANT40SU2 GT; -PANT40TA2 PO; +TOBR5DRO46 EACHEYE; +ZINC1CAP3 GT
[2023-05-18] MEDS ORDERED: IV LR 500 ML IV ONE (10:30)
[2023-05-18] MEDS ORDERED: TOBRAMYCIN SULFATE OPHTH OINT 3.5 GM TUBE LEFTEYE SCH (10:30)
[2023-05-18] MEDS: IV LR 1000 ML 1,000 ML BAG IV ONE (10:33)
[2023-05-18] MEDS: CEFEPIME 1 GM in IV D5W 50 ML IV ONE (10:57)
[2023-05-18 10:58] LABS: INR 1.05 (0.91-1.10); PARTIAL THROMBOPLASTIN TIME 27.6 SEC (24.3-34.3); PROTHROMBIN TIME 11.1 SECS (9.2-11.1)
[2023-05-18] MEDS ORDERED: COLL30OI TP (11:01)
[2023-05-18] MEDS ORDERED: MULT-213 GT (11:01)
[2023-05-18] MEDS ORDERED: HEPA50008 SQ (11:01)
[2023-05-18] MEDS ORDERED: CEFE1VIA3 IV (11:01)
[2023-05-18] MEDS ORDERED: POVI3780 TP (11:01)
[2023-05-18 11:03] LABS: APPEARANCE,URINE CLEAR (CLEAR); BILIRUBIN,URINE NEGATIVE (NEGATIVE); BLOOD, URINE TRACE-INTA Ery/uL (NEGATIVE); COLOR,URINE YELLOW (YELLOW); KETONES,URINE TRACE mg/dL (NEGATIVE); LEUKOCYTE ESTERASE ,URINE TRACE (NEGATIVE); NITRITE, URINE NEGATIVE (NEGATIVE); PROTEIN,URINE 1+ mg/dl (NEGATIVE); UGLUCOSE NEGATIVE (NEGATIVE); UROBILINOGEN,URINE 0.2 EU/dL (0.2)
[2023-05-18 11:15] LABS: ADD URINE CULTURE NO; BACTERIA,URINE Rare /HPF (None Seen); RBC,URINE 0-2 /HPF (0-2); SQUAMOUS EPITHELIAL CELL,UR Few /HPF (None Seen)
[2023-05-18 11:21] LABS: LACTIC ACID 1.4 mmol/L (0.4-2.0)
[2023-05-18 11:22] LABS: BASOPHILS % (AUTO) 0.1 % (0.0-2.0); EOSINOPHILS # (AUTO) 0.1 K/uL (0.0-0.7); EOSINOPHILS % (AUTO) 0.7 % (0.0-6.0); HEMATOCRIT 33 % (39-51); HEMOGLOBIN 10.4 g/dL (13.5-17.5); LYMPHOCYTES # (AUTO) 2.9 K/uL (0.8-4.8); LYMPHOCYTES % (AUTO) 21.9 % (20.0-44.0); MEAN CORPUSCULAR HEMOGLOBIN 28 PG (26.0-33.0); MEAN CORPUSCULAR HGB CONC 32 g/dl (31.0-36.0); MEAN CORPUSCULAR VOLUME 89 fL (80-96); MONOCYTES % (AUTO) 7.2 % (2.0-12.0); NEUTROPHILS # (AUTO) 9.3 K/uL (1.8-8.9); NEUTROPHILS % (AUTO) 70.1 % (43.0-81.0); PLATELET COUNT (AUTO) 274 K/uL (150-450); RED CELL DISTRIBUTION WIDTH 17.8 % (11.5-15.0); WHITE BLOOD COUNT (AUTO) 13.2 K/uL (4.3-11.0)
[2023-05-18 11:24] LABS: ALANINE AMINOTRANSFERASE 28 U/L (12-78); ALBUMIN 1.6 g/dL (3.4-5.0); ALKALINE PHOSPHATASE 86 U/L (46-116); ASPARTATE AMINOTRANSFERASE 30 U/L (15-37); BILIRUBIN,DIRECT 0.2 mg/dL (0.0-0.2); BILIRUBIN,TOTAL 0.6 mg/dL (0.2-1.0); CALCIUM, SERUM 9.1 mg/dL (8.5-10.1); CARBON DIOXIDE 28 mmol/L (21-32); CHLORIDE 109 mmol/L (98-107); GLUCOSE 149 mg/dL (74-106); POTASSIUM 4.6 mmol/L (3.5-5.1); SODIUM SERUM 142 mmol/L (136-145); UREA NITROGEN, BLOOD 39 mg/dL (7-18)
[2023-05-18] MEDS: TOBRAMYCIN SULFATE OPHTH OINT 3.5 GM TUBE LEFTEYE SCH (11:28)
[2023-05-18] MEDS: VANCOMYCIN 1 GM in IV D5W 250 ML IV ONE (11:29)
[2023-05-18] MEDS ORDERED: TOBRAMYCIN/DEXAMETH OPHTH DORPS 2.5 ML BOTTLE LEFTEYE SCH (11:30)
[2023-05-18] MEDS ORDERED: MORPHINE SULFATE INJ 2 MG/ML DISP.SYRIN IV PRN (12:30)
[2023-05-18] MEDS ORDERED: hydrALAZINE HCL IV 20 MG VIAL IV PRN (12:30)
[2023-05-18] MEDS ORDERED: ALBUTEROL FS 2.5 MG/0.5 ML VIAL.NEB NEB PRN (12:30)
[2023-05-18] MEDS ORDERED: BISACODYL SUPP (10 MG) 10 MG/SUPP.RECT SUPP.RECT RC PRN (12:30)
[2023-05-18] MEDS ORDERED: ONDANSETRON HCL/PF 4 MG/2 ML VIAL IVP PRN (12:30)
[2023-05-18] MEDS ORDERED: ACETAMINOPHEN 325 MG TABLET PO PRN (12:30)
[2023-05-18 13:15] VITALS: BP 123/66; TEMP 97.5; O2SAT 95
[2023-05-18] MEDS: ALBUTEROL FS 2.5 MG/3 ML VIAL.NEB NEB SCH (13:30)
[2023-05-18] MEDS: IPRATROPIUM NEB FS 0.5 MG/2.5 ML AMPUL.NEB NEB SCH (13:30)
[2023-05-18] MEDS: MEROPENEM 1 G in IV NS 0.9% 100 ML IV SCH (14:23)
[2023-05-18] MEDS: GENTAMICIN OPTH SOLN 0.3% 5 ML BOTTLE LEFTEYE SCH (14:23)
[2023-05-18 16:00] VITALS: BP 130/70; TEMP 99.7; O2SAT 100
[2023-05-18] MEDS: GLUCERNA 1.2 1,000 ML BOTTLE GT PRN (17:47)
[2023-05-18] MEDS ORDERED: IPRATROPIUM/ALBUTEROL INHALER IH SCH (18:00)
[2023-05-18 19:46] VITALS: O2SAT 94
[2023-05-18 20:00] VITALS: BP 101/54; TEMP 99.3; O2SAT 100
[2023-05-18 20:01] VITALS: O2SAT 100
[2023-05-18] MEDS: ATORVASTATIN 40 MG TABLET GT SCH (21:10)
[2023-05-18] MEDS: FINASTERIDE (5 MG) 5 MG TABLET GT SCH (21:10)
[2023-05-18] MEDS: TAMSULOSIN 0.4 MG CAP.SR.24H GT SCH (21:11)
[2023-05-18] MEDS: HEPARIN SODIUM, PORCINE 5000 UNITS/1 ML VIAL SQ SCH (21:13)
[2023-05-18] MEDS: VANCOMYCIN HCL 0.75 GM in IV D5W 250 ML IV SCH (22:30)
[2023-05-19] VITALS (13 sets, daily range): BP systolic 111–129; BP diastolic 55–66; TEMP 98.1–99.3; O2SAT 91–100
[2023-05-19 06:52] LABS: BASOPHILS % (AUTO) 0.2 % (0.0-2.0); EOSINOPHILS # (AUTO) 0.2 K/uL (0.0-0.7); EOSINOPHILS % (AUTO) 1.5 % (0.0-6.0); HEMATOCRIT 28 % (39-51); HEMOGLOBIN 8.8 g/dL (13.5-17.5); LYMPHOCYTES # (AUTO) 2.4 K/uL (0.8-4.8); LYMPHOCYTES % (AUTO) 20.1 % (20.0-44.0); MEAN CORPUSCULAR HEMOGLOBIN 28 PG (26.0-33.0); MEAN CORPUSCULAR HGB CONC 31 g/dl (31.0-36.0); MEAN CORPUSCULAR VOLUME 89 fL (80-96); MONOCYTES # (AUTO) 0.9 K/uL (0.1-1.30); MONOCYTES % (AUTO) 7.5 % (2.0-12.0); NEUTROPHILS # (AUTO) 8.4 K/uL (1.8-8.9); NEUTROPHILS % (AUTO) 70.7 % (43.0-81.0); PLATELET COUNT (AUTO) 237 K/uL (150-450); RED BLOOD CELL COUNT(AUTO) 3.15 MIL/uL (4.5-6.0); RED CELL DISTRIBUTION WIDTH 17.9 % (11.5-15.0); WHITE BLOOD COUNT (AUTO) 11.8 K/uL (4.3-11.0)
[2023-05-19 07:00] LABS: ALANINE AMINOTRANSFERASE 23 U/L (12-78); ALKALINE PHOSPHATASE 87 U/L (46-116); ASPARTATE AMINOTRANSFERASE 28 U/L (15-37); BILIRUBIN,TOTAL 0.6 mg/dL (0.2-1.0); CARBON DIOXIDE 25 mmol/L (21-32); CHLORIDE 109 mmol/L (98-107); CREATININE 0.7 mg/dL (0.6-1.3); GLUCOSE 145 mg/dL (74-106); MAGNESIUM 2.3 mg/dL (1.8-2.4); PHOSPHORUS 3.2 mg/dL (2.5-4.9); POTASSIUM 4.4 mmol/L (3.5-5.1); SODIUM SERUM 140 mmol/L (136-145); TOTAL PROTEIN, SERUM 6.4 g/dL (6.4-8.2); UREA NITROGEN, BLOOD 25 mg/dL (7-18)
[2023-05-19 07:06] LABS: ALBUMIN 1.4 g/dL (3.4-5.0)
[2023-05-19] MEDS ORDERED: Medication Not On Formulary EA (Dolutegravir Sodium (Tivicay) 50 MG) GT SCH (09:00)
[2023-05-19] MEDS: POLYVINYL ALCOHOL 15 ML BOTTLE EACHEYE PRN (09:29)
[2023-05-19] MEDS: DOCUSATE SODIUM LIQ 100 MG/10 ML UDC GT SCH (09:30)
[2023-05-19] MEDS: ASPIRIN 81 MG TAB.CHEW GT SCH (09:30)
[2023-05-19] MEDS: LOSARTAN POTASSIUM 50 MG TABLET GT SCH (09:32)
[2023-05-19] MEDS: AMLODIPINE BESYLATE 10 MG TABLET GT SCH (09:32)
[2023-05-19] MEDS: THERAHONEY GEL 1.5 OZ TUBE TP SCH (09:33)
[2023-05-19] MEDS: PANTOPRAZOLE 40 MG/PACK PACK GT SCH (11:53)
[2023-05-19] MEDS: GLUCERNA 1.2 1,000 ML BOTTLE GT SCH (12:58)
[2023-05-20] VITALS (11 sets, daily range): BP systolic 109–127; BP diastolic 56–80; TEMP 97.7–100.6; O2SAT 95–100
[2023-05-20] MEDS ORDERED: SILVER NITRATE APPLICATOR 1 EA BOX TP PRN (07:00)
[2023-05-20] MEDS: LIDOCAINE 1%-EPI 1:100,000 20 ML VIAL TP ONE (07:00)
[2023-05-20 08:00] LABS: CALCIUM, SERUM 8.6 mg/dL (8.5-10.1); CREATININE 0.7 mg/dL (0.6-1.3); POTASSIUM 4.1 mmol/L (3.5-5.1)
[2023-05-20] MEDS: DAKINS QUARTER STRENGTH (0.125%) 480 ML BOTTLE TOP SCH (09:56)
[2023-05-20] MEDS: Z GUARD REMEDY 4 OZ OINT TP SCH (09:59)
[2023-05-20 11:10] LABS: *% CD 4 POS. LYMPH 9.9 % (30.8-58.5); *% CD 8 POS. LYMPH 77.2 % (12.0-35.5); *CD4/CD8 RATIO 0.13 (0.92-3.72)
[2023-05-20] MEDS: TOBRAMYCIN OPHTH 5ML 5 ML BOTTLE EACHEYE SCH (14:05)
[2023-05-21] VITALS (11 sets, daily range): BP systolic 117–129; BP diastolic 53–82; TEMP 98.6–99.7; O2SAT 95–100
[2023-05-21 07:52] LABS: CALCIUM, SERUM 9.2 mg/dL (8.5-10.1); CARBON DIOXIDE 29 mmol/L (21-32); CHLORIDE 110 mmol/L (98-107); CREATININE 0.8 mg/dL (0.6-1.3); GLUCOSE 151 mg/dL (74-106); POTASSIUM 4.4 mmol/L (3.5-5.1); SODIUM SERUM 143 mmol/L (136-145); UREA NITROGEN, BLOOD 21 mg/dL (7-18)
[2023-05-21] MEDS: FLUCONAZOLE (100 MG) 100 MG TABLET PO SCH (15:33)
[2023-05-22] VITALS (10 sets, daily range): BP systolic 137–141; BP diastolic 71; TEMP 98–98.4; O2SAT 95–100
[2023-05-22 07:56] LABS: CALCIUM, SERUM 9.2 mg/dL (8.5-10.1); CREATININE 0.8 mg/dL (0.6-1.3); POTASSIUM 4.3 mmol/L (3.5-5.1)
[2023-05-22] MEDS: EMTRICITABINE/TENOFOVIR 1 TAB PO SCH (12:48)
[2023-05-22] MEDS: GLUCERNA 1.2 1,000 ML BOTTLE GT SCH (16:55)
[2023-05-22] MEDS: LAMIVUDINE/ZIDOVUDINE 150-300 1 TAB TABLET PO SCH (21:33)
[2023-05-22] MEDS: VANCOMYCIN 1 GM in IV D5W 250ml IV SCH (23:05)
[2023-05-23] VITALS (10 sets, daily range): BP systolic 123–132; BP diastolic 61–72; TEMP 98.1–98.6; O2SAT 94–100
[2023-05-23 08:19] LABS: CALCIUM, SERUM 8.9 mg/dL (8.5-10.1); CHLORIDE 109 mmol/L (98-107); CREATININE 0.7 mg/dL (0.6-1.3); GLUCOSE 151 mg/dL (74-106); POTASSIUM 4.6 mmol/L (3.5-5.1); SODIUM SERUM 142 mmol/L (136-145); UREA NITROGEN, BLOOD 24 mg/dL (7-18)
[2023-05-23 08:44] LABS: CARBON DIOXIDE 31 mmol/L (21-32)
[2023-05-23] MEDS: Z GUARD REMEDY 4 OZ OINT TP PRN (09:09)
[2023-05-24] VITALS (11 sets, daily range): BP systolic 128–143; BP diastolic 72–74; TEMP 97.9–98.1; O2SAT 96–100
[2023-05-24 08:07] LABS: BASOPHILS % (AUTO) 0.4 % (0.0-2.0); EOSINOPHILS # (AUTO) 0.1 K/uL (0.0-0.7); EOSINOPHILS % (AUTO) 1.2 % (0.0-6.0); HEMATOCRIT 31 % (39-51); HEMOGLOBIN 9.7 g/dL (13.5-17.5); LYMPHOCYTES # (AUTO) 1.5 K/uL (0.8-4.8); MEAN CORPUSCULAR HEMOGLOBIN 28 PG (26.0-33.0); MEAN CORPUSCULAR HGB CONC 32 g/dl (31.0-36.0); MEAN CORPUSCULAR VOLUME 88 fL (80-96); MONOCYTES # (AUTO) 0.4 K/uL (0.1-1.30); MONOCYTES % (AUTO) 5.2 % (2.0-12.0); NEUTROPHILS # (AUTO) 6.5 K/uL (1.8-8.9); NEUTROPHILS % (AUTO) 76.2 % (43.0-81.0); PLATELET COUNT (AUTO) 302 K/uL (150-450); RED BLOOD CELL COUNT(AUTO) 3.51 MIL/uL (4.5-6.0); RED CELL DISTRIBUTION WIDTH 16.8 % (11.5-15.0); WHITE BLOOD COUNT (AUTO) 8.5 K/uL (4.3-11.0)
[2023-05-24 08:18] LABS: CALCIUM, SERUM 9.2 mg/dL (8.5-10.1); CARBON DIOXIDE 28 mmol/L (21-32); CHLORIDE 109 mmol/L (98-107); CREATININE 0.8 mg/dL (0.6-1.3); GLUCOSE 135 mg/dL (74-106); MAGNESIUM 2.3 mg/dL (1.8-2.4); PHOSPHORUS 2.8 mg/dL (2.5-4.9); POTASSIUM 5.1 mmol/L (3.5-5.1); SODIUM SERUM 142 mmol/L (136-145); UREA NITROGEN, BLOOD 22 mg/dL (7-18)
[2023-05-25] VITALS (11 sets, daily range): BP systolic 116–123; BP diastolic 57–64; TEMP 97.9–98.8; O2SAT 96–100
[2023-05-25 08:18] LABS: CALCIUM, SERUM 9.4 mg/dL (8.5-10.1); CREATININE 0.7 mg/dL (0.6-1.3); POTASSIUM 4.7 mmol/L (3.5-5.1)
[2023-05-25 09:08] LABS: *BASOS 0 % (Not Estab.); *EOS 2 % (Not Estab.); *EOS, ABSOLUTE 0.1 x10E3/uL (0.0-0.4); *IMMATURE GRANULOCYTES 0 % (Not Estab.); *LYMPHOCYTES 21 % (Not Estab.); *LYMPHS, ABSOLUTE 1.7 x10E3/uL (0.7-3.1); *MCH 27.4 pg (26.6-33.0); *MCV 88 fL (79-97); *MONOCYTES 6 % (Not Estab.); *MONOS, ABSOLUTE 0.5 x10E3/uL (0.1-0.9); *NEUTROPHILS 71 % (Not Estab.); *NEUTROPHILS, ABSOLUTE 5.6 x10E3/uL (1.4-7.0); *PLT 332 x10E3/uL (150-450); *RBC 3.29 x10E6/uL (4.14-5.80); *RDW 14.5 % (11.6-15.4); *WBC 7.9 x10E3/uL (3.4-10.8)
[2023-05-25 12:07] LABS: *% CD 4 POS. LYMPH 13.1 % (30.8-58.5); *% CD 8 POS. LYMPH 71.8 % (12.0-35.5); *ABSOLUTE CD 4 HELPER 223 /uL (359-1519); *ABSOLUTE CD 8 SUPPRESSOR 1221 /uL (109-897); *CD4/CD8 RATIO 0.18 (0.92-3.72)
[2023-05-26] VITALS (13 sets, daily range): BP systolic 115–150; BP diastolic 57–69; TEMP 97.5–98.8; O2SAT 94–100
[2023-05-26 08:32] LABS: CALCIUM, SERUM 9.5 mg/dL (8.5-10.1); CREATININE 0.7 mg/dL (0.6-1.3); POTASSIUM 4.7 mmol/L (3.5-5.1)
[2023-05-27] VITALS (10 sets, daily range): BP systolic 96–100; BP diastolic 59–61; TEMP 98.4–99.5; O2SAT 94–100
[2023-05-27 07:08] LABS: CREATININE 0.6 mg/dL (0.6-1.3); POTASSIUM 4.5 mmol/L (3.5-5.1)
[2023-05-27] MEDS: ACETAMINOPHEN 650 MG/20.3 ML UDC GT PRN (17:53)
[2023-05-28 01:46] VITALS: O2SAT 95
[2023-05-28 02:01] VITALS: O2SAT 98
[2023-05-28 06:51] LABS: BASOPHILS % (AUTO) 0.3 % (0.0-2.0); EOSINOPHILS # (AUTO) 0.1 K/uL (0.0-0.7); EOSINOPHILS % (AUTO) 1.7 % (0.0-6.0); HEMATOCRIT 27 % (39-51); HEMOGLOBIN 8.6 g/dL (13.5-17.5); LYMPHOCYTES # (AUTO) 1.4 K/uL (0.8-4.8); LYMPHOCYTES % (AUTO) 16.8 % (20.0-44.0); MEAN CORPUSCULAR HEMOGLOBIN 28 PG (26.0-33.0); MEAN CORPUSCULAR HGB CONC 32 g/dl (31.0-36.0); MEAN CORPUSCULAR VOLUME 87 fL (80-96); MONOCYTES # (AUTO) 0.4 K/uL (0.1-1.30); NEUTROPHILS # (AUTO) 6.3 K/uL (1.8-8.9); NEUTROPHILS % (AUTO) 76.2 % (43.0-81.0); PLATELET COUNT (AUTO) 332 K/uL (150-450); RED BLOOD CELL COUNT(AUTO) 3.09 MIL/uL (4.5-6.0); RED CELL DISTRIBUTION WIDTH 17.1 % (11.5-15.0); WHITE BLOOD COUNT (AUTO) 8.3 K/uL (4.3-11.0)
[2023-05-28 07:08] LABS: CALCIUM, SERUM 8.9 mg/dL (8.5-10.1); CREATININE 0.7 mg/dL (0.6-1.3); MAGNESIUM 2.6 mg/dL (1.8-2.4); PHOSPHORUS 2.8 mg/dL (2.5-4.9); POTASSIUM 4.4 mmol/L (3.5-5.1)
[2023-05-28 07:29] VITALS: O2SAT 95
[2023-05-28 07:39] VITALS: O2SAT 98
[2023-05-28 08:00] VITALS: BP 123/74; TEMP 97.7; O2SAT 92
[2023-05-28 08:18] VITALS: BP 123/74
[2023-05-28] MEDS ORDERED: LIDOCAINE 1%-EPI 1:100,000 20 ML VIAL TP ONE (10:00)
[2023-05-28] MEDS ORDERED: SILVER NITRATE APPLICATOR 1 EA BOX TP PRN (10:00)
== END 2023-05-28 12:30 | DRG 853 ==
LOC: ER 09:57 → TELE 11:52 → MED 05-19 12:06 → UNDODISIN 05-27 15:30
PROVIDERS: ADMIT Internal Medicine; ATTEND Nurse Practitioner Family
PROC: 0KBP0ZZ Excision of Left Hip Muscle, Open Approach (ICD-10-PCS; principal; 2023-05-21)
PROC: 0KBN0ZZ Excision of Right Hip Muscle, Open Approach (ICD-10-PCS; 2023-05-21)
PROC: 05H633Z Insertion of Infusion Device into Left Subclavian Vein, Percutaneous Approach (ICD-10-PCS; 2023-05-27)
PROC: B547ZZA Ultrasonography of Left Subclavian Vein, Guidance (ICD-10-PCS; 2023-05-27)
DX: A41.9 Sepsis, unspecified organism (principal); E43 Unspecified severe protein-calorie malnutrition; L89.154 Pressure ulcer of sacral region, stage 4; G93.41 Metabolic encephalopathy; D68.69 Other thrombophilia; B37.49 Other urogenital candidiasis; E78.5 Hyperlipidemia, unspecified; E88.09 Other disorders of plasma-protein metabolism, not elsewhere classified; H10.89 Other conjunctivitis; R13.10 Dysphagia, unspecified; R62.7 Adult failure to thrive; Z86.73 Personal history of transient ischemic attack (TIA), and cerebral infarction without residual deficits; Z87.01 Personal history of pneumonia (recurrent); Z88.0 Allergy status to penicillin; Z93.1 Gastrostomy status; D64.9 Anemia, unspecified; H54.62 Unqualified visual loss, left eye, normal vision right eye; Z20.822 Contact with and (suspected) exposure to COVID-19; N40.1 Benign prostatic hyperplasia with lower urinary tract symptoms; Z68.20 Body mass index [BMI] 20.0-20.9, adult; L98.8 Other specified disorders of the skin and subcutaneous tissue; L89.526 Pressure-induced deep tissue damage of left ankle; L89.516 Pressure-induced deep tissue damage of right ankle; Z74.09 Other reduced mobility; Z21 Asymptomatic human immunodeficiency virus [HIV] infection status; I10 Essential (primary) hypertension; R73.03 Prediabetes
CPT/HCPCS: 31720; 36410; 36415; 71045-TC; 72192-TC; 80048-TC; 80053-TC; 80076-TC; 80202-TC; 81001; 82962-TC; 83605-TC; 83735-TC; 84100-TC; 84484-TC; 85025-TC; 85730-TC; 86360; 87040-TC; 87081-TC; 87086-TC; 92526; 92611-TC; 94799-TC; A4223; A6253; A6403; G0378; J0692; J1644; J2185; J3370; J3490; J7030; J7040; J7050; J7060; J7120